=== PATIENT | female | born 1945 | race Caucasian/White ===

== ENCOUNTER → 2019-07-18 08:58 | Outpatient (CLI) | payer MEDICARE ==
[2013-10-05 03:44] VITALS: BMI 25.8
[~2019-07-18 08:58] MED LIST: CORDARONE200 MG PO; LIPITOR20 MG PO; TOPROL XL50 MG PO; XARELTO20 MG PO
== END | disposition home or self-care (01) ==
LOC: D.US 08:58
PROVIDERS: ATTEND Internal Medicine Interventional Cardiology
DX: R09.89 Other specified symptoms and signs involving the circulatory and respiratory systems (principal)

== ENCOUNTER → 2019-07-25 07:54 | Outpatient (CLI) | payer MEDICARE, MEDICAID ==
[2013-10-05 03:44] VITALS: BMI 25.8
--- NOTE | ~2019-07-25 | ST ---
PATIENT:JOHN COSME MEDICAL RECORD: [id number] SEX: F LOCATION:[facility] ORDER #: ADMISSION DATE: 07/25/19 AGE OF PATIENT: 74 REFERRING PHYSICIAN: INTERPRETING PHYSICIAN: VERITO HADDAD MD DATE OF SERVICE: 07/25/2019 INDICATION: Angina and coronary artery disease, hypertension and hyperlipidemia. He was exercised on standard Lexiscan protocol with 33 mCi of sestamibi injected at peak stress, 11 mCi used previously for rest images. FINDINGS: Gated SPECT reveals preserved ejection fraction at 63% with good wall motion and thickening and brightening throughout all segments. SPECT imaging Cardiolite was used as myocardial fusion agent. There is homogeneous uptake throughout all segments at rest and stress with no evidence of inducible ischemia or previous infarction. OVERALL IMPRESSION: 1. This is a normal nuclear stress test with no evidence of inducible ischemia or previous infarction. 2. Gated SPECT reveals a preserved ejection fraction at 63%. In this patient with ongoing symptomatology, the current scan does not suggest the presence of hemodynamically significant coronary artery disease. Evaluate noncardiac etiology of chest pain. TRANSINT:[id number] Voice Confirmation ID: [id number] DOCUMENT ID: [id number] VERITO HADDAD MD CC: ABIOLA HILL MD [id number] DICTATION DATE: 07/26/19 1428 DOCK GRADER: 07/27/19 0149 DEP CLI 07/25/19 [id number] [place] [address]
== END | disposition home or self-care (01) ==
LOC: D.HCCARDIO 07:54
PROVIDERS: ATTEND Internal Medicine Interventional Cardiology
DX: I25.10 Atherosclerotic heart disease of native coronary artery without angina pectoris (principal)

== ENCOUNTER 2019-12-08 21:43 | Inpatient (IN) | payer MEDICARE, MEDICAID ==
[~2019-12-08] VITALS: Ht 165.1 cm; Wt 80.2 kg
[2019-12-08] MEDS ORDERED: COZAAR50 MG PO (21:53)
[2019-12-08] MEDS ORDERED: NORVASC5 MG PO (21:53)
[2019-12-08] MEDS ORDERED: HYDROCHLOROTH12.5 M1 PO (21:54)
--- NOTE | 2019-12-08 21:57 | NUR ---
PT O2 SAT IS 85 % ON RA AFTER WALKING TO BATHROOM
[2019-12-08 21:58] LABS: BASOPHILS 0.3 % (0-2); EOSINOPHILS 1.9 % (0-7); HEMATOCRIT 34.7 % (36.0-48.0); HEMOGLOBIN 11.2 g/dL (12-16); IMMATURE GRANULOCYTES 0.3 % (0-5); MCH 30.8 pg (26.0-34.0); MCHC 32.3 g/dL (31.0-37.0); MCV 95.3 fL (80.0-100.0); MEAN PLATELET VOLUME 11.3 fL (7.4-10.4); MONOCYTES 10.2 % (2-11); NEUTROPHILS 79.3 % (40-80); RBC 3.64 10x6/uL (4.00-5.40); RDW 14.7 % (11.5-14.5); WBC 6.5 10x3/uL (4.8-10.8)
[2019-12-08 22:02] LABS: BACTERIA FEW /hpf (NEGATIVE); BILIRUBIN NEGATIVE (NEGATIVE); EPITHELIAL CELLS 0-5 /hpf (0-5); GLUCOSE NEGATIVE (NEGATIVE); KETONE NEGATIVE (NEGATIVE); NITRITE NEGATIVE (NEGATIVE); PLATELET COUNT 210 10x3/uL (130-400); RED CELLS - URINE OCC /hpf (0-5); UROBILINOGEN NORMAL (NORMAL); WHITE CELLS - URINE 0-5 /hpf (NEGATIVE)
[2019-12-08 22:04] LABS: APTT 33.5 SECONDS (22.8-39.4); INR 1.13 (0.85-1.17); PROTIME 14.4 SECONDS (11.6-15.0)
[2019-12-08 22:05] LABS: CALC OSMOLALITY 282 mosm/kg (275-300); CALCIUM 9.5 mg/dL (8.5-10.1); CARBON DIOXIDE 31.1 mmol/L (21.0-32.0); CHLORIDE - SERUM 102 mmol/L (98-107); CREATININE - SERUM 1.4 mg/dL (0.6-1.3); GLUCOSE 165 mg/dL (74-106); POTASSIUM - SERUM 4.5 mmol/L (3.5-5.1); SODIUM 134 mmol/L (136-145); UREA NITROGEN 42 mg/dL (7-18); eGFR NON AFRICAN AMERICAN 39 mL/min (90-120)
[2019-12-08 22:24] LABS: ALBUMIN 3.4 g/dL (3.4-5.0); ALKALINE PHOSPHATASE 98 U/L (30-120); ALT (SGPT) 58 U/L (10-68); BILIRUBIN - TOTAL 0.75 mg/dL (0.2-1.3); CKMB 3.8 U/L (0.0-3.6); CREATINE KINASE 167 UL (21-215); PRO BNP 991 pg/mL (0-125); PROTEIN - SERUM 7.8 g/dL (6.4-8.2)
[2019-12-08 22:25] LABS: TROPONIN-I < 0.017 ng/mL (0.000-0.060)
--- NOTE | 2019-12-08 22:56 | NUR ---
RT AT BEDSIDE TO ADMINISTER BREATHING TREATMENT.
[2019-12-08 23:01] LABS: C-REACTIVE PROTEIN 5.5 mg/dL (0.0-0.9)
--- NOTE | 2019-12-09 01:39 | NUR ---
PT FROM ER VIA STRETCHER, PT ON 3LO2/NC, RESP EVEN AND UNLABORED. NO DISTRESS NOTED, AMBULATED TO BED, CL IN REACH, SR UP X 2.
[2019-12-09 01:47] VITALS: BP 144/55
[2019-12-09 05:01] VITALS: BP 137/56
--- NOTE | 2019-12-09 09:09 | NUR ---
PT AWAKE AND ORIENTED WHEN I ENTERED THE ROOM. NO COMPLAINTS OR CONCERNS THIS AM. SHE IS ANXIOUS FOR HER RESULTS TO COME BACK (COVID). PROVIDED ORAL CARE EQUIPTMENT. CL IN REACH, SRX2, UP ADLIB IN ROOM.
--- NOTE | 2019-12-09 10:59 | NUR ---
PTS FAMILY BROUGHT BELONGINGS, TAKEN INTO ROOM.
--- NOTE | 2019-12-09 16:55 | NUR ---
I have reviewed this patient and I concur with the Shift Assessment completed by the Licensed Practical Nurse today this shift.
--- NOTE | 2019-12-09 20:01 | NUR ---
REPORT RECEIVED AND ROUNDING COMPLETE. PATIENT SITTING IN RICK IN ROOM WEARING NASAL CANNULA WITH O2 AT 3L, PATIENT STATES THIS IS A HOME DOSE. LEFT WRIST PIV THAT IS PATIENT AND RUNNING FLUIDS AT THIS TIME. CALL LIGHT WITHIN REACH NO DISTRESS NOTED AT THIS TIME.
[2019-12-09 20:47] VITALS: BP 144/45
[2019-12-10 04:30] VITALS: BP 143/68
[2019-12-10 06:06] LABS: BASOPHILS 0 % (0-2); EOSINOPHILS 0 % (0-7); HEMATOCRIT 33.9 % (36.0-48.0); HEMOGLOBIN 10.7 g/dL (12-16); IMMATURE GRANULOCYTES 0.4 % (0-5); LYMPHOCYTES 2.9 % (15-50); MCH 30.3 pg (26.0-34.0); MCHC 31.6 g/dL (31.0-37.0); MEAN PLATELET VOLUME 11.9 fL (7.4-10.4); MONOCYTES 5.1 % (2-11); NEUTROPHILS 91.6 % (40-80); PLATELET COUNT 185 10x3/uL (130-400); RBC 3.53 10x6/uL (4.00-5.40); RDW 15.1 % (11.5-14.5)
[2019-12-10 06:20] LABS: WBC 8.2 10x3/uL (4.8-10.8)
[2019-12-10 06:33] LABS: ANION GAP 12.4 mmol/L (8-16); CARBON DIOXIDE 24.2 mmol/L (21.0-32.0); CREATININE - SERUM 1.4 mg/dL (0.6-1.3); MAGNESIUM - SERUM 2.4 mg/dL (1.8-2.4); POTASSIUM - SERUM 4.6 mmol/L (3.5-5.1)
[2019-12-10 09:17] VITALS: BP 97/68
--- NOTE | 2019-12-10 10:43 | NUR ---
NOTIFIED ELLE CAVAZOS APN OF ELEVATED D. DIMER. ORDERS FOR VQ SCAN.
--- NOTE | 2019-12-10 11:42 | NUR ---
PAGED DR. MCKEE, WAITING PROJECT ASST BACK.
[2019-12-10 12:08] VITALS: BP 101/70
--- NOTE | 2019-12-10 12:25 | NUR ---
BILAT LEG VENOUS DOPPLER BY DR. MCKEE. NOTIFIED MIREYA SHELL APRN THAT PT STATES THAT SHE CANNOT LAY FLAT FOR VQ SCAN. PER MIREYA OK TO CANCEL SINCE DR. MCKEE HAS ORDERED DOPPLER OF LEGS.
--- NOTE | 2019-12-10 18:14 | NUR ---
PROVIDED PT WITH THE SUPPLIES NEEDED FOR SPONGE BATH. PT DENIES ANY OTHER NEEDS AT THIS TIME. CALL LIGHT IN REACH, NAD NOTED, WILL CONTINUE TO MONITOR.
[2019-12-10 20:30] VITALS: BP 114/78
[2019-12-11 04:36] VITALS: BP 130/49
[2019-12-11 05:20] LABS: BASOPHILS 0 % (0-2); EOSINOPHILS 0 % (0-7); HEMATOCRIT 31.1 % (36.0-48.0); HEMOGLOBIN 9.6 g/dL (12-16); IMMATURE GRANULOCYTES 0.9 % (0-5); LYMPHOCYTES 2.6 % (15-50); MCH 29.7 pg (26.0-34.0); MCHC 30.9 g/dL (31.0-37.0); MCV 96.3 fL (80.0-100.0); MEAN PLATELET VOLUME 11.2 fL (7.4-10.4); MONOCYTES 6.4 % (2-11); NEUTROPHILS 90.1 % (40-80); PLATELET COUNT 199 10x3/uL (130-400); RBC 3.23 10x6/uL (4.00-5.40); RDW 15.2 % (11.5-14.5); WBC 9.1 10x3/uL (4.8-10.8)
[2019-12-11 05:28] LABS: ANION GAP 10.3 mmol/L (8-16); CALCIUM 8.8 mg/dL (8.5-10.1); CARBON DIOXIDE 28.2 mmol/L (21.0-32.0); CREATININE - SERUM 1.3 mg/dL (0.6-1.3)
[2019-12-11 05:33] LABS: POTASSIUM - SERUM 5.5 mmol/L (3.5-5.1)
[2019-12-11 08:16] VITALS: BP 123/48
--- NOTE | 2019-12-11 08:55 | NUR ---
AM MEDS GIVEN AT THIS TIME. PT UP TO CHAIR, A/O X4, RESP EVEN AND NONLABORED ON 2L. LT FA IV INFUSING NS AT 75CC/HR. PT DENIES ANY NEEDS AT THIS TIME. CALL LIGHT IN REACH, NAD NOTED, WILL CONTINUE TO MONITOR.
[2019-12-11 12:48] VITALS: BP 148/53
[2019-12-11 17:01] VITALS: BP 159/52
--- NOTE | 2019-12-11 20:00 | NUR ---
INITIAL ROUNDS AND ASSESSMENT COMPLETED. PT RESTING IN BED. ALERT/ORIENTED. O2 @ 2L/NC. NS @ 75ML/HR INFUSING TO LFA. CALL LIGHT IN REACH. CPOC.
[2019-12-11 20:21] VITALS: BP 133/55
--- NOTE | 2019-12-11 23:38 | NUR ---
ALL BED TIME MEDS GIVEN. PT ALSO GIVEN BEDTME SNACK. CPOC.
[2019-12-12 00:33] VITALS: BP 100/57
[2019-12-12 05:48] VITALS: BP 150/60
[2019-12-12 07:12] LABS: BASOPHILS 0.1 % (0-2); EOSINOPHILS 0 % (0-7); HEMATOCRIT 35.6 % (36.0-48.0); HEMOGLOBIN 11.4 g/dL (12-16); IMMATURE GRANULOCYTES 1.8 % (0-5); LYMPHOCYTES 1.4 % (15-50); MCH 30.7 pg (26.0-34.0); MEAN PLATELET VOLUME 11.4 fL (7.4-10.4); MONOCYTES 4.2 % (2-11); NEUTROPHILS 92.5 % (40-80); RBC 3.71 10x6/uL (4.00-5.40); RDW 15.6 % (11.5-14.5)
[2019-12-12 07:33] LABS: PLATELET COUNT 301 10x3/uL (130-400)
[2019-12-12 07:41] LABS: ANION GAP 14.4 mmol/L (8-16); CALCIUM 9.2 mg/dL (8.5-10.1); CARBON DIOXIDE 25.6 mmol/L (21.0-32.0); CREATININE - SERUM 1.3 mg/dL (0.6-1.3)
[2019-12-12 08:00] VITALS: BP 142/55
--- NOTE | 2019-12-12 08:41 | CN ---
PATIENT NAME:JOHN COSME MEDICAL RECORD: [id number] : 47 LOCATION:D. D.2113 ADMIT DATE: 12/09/19 ACCOUNT: [id number] CONSULTING PHYSICIAN: LULU CLAYTON MD REFERRING PHYSICIAN: MIRTA BERGMAN MD DATE OF CONSULTATION: 12/11/2019 HISTORY OF PRESENT ILLNESS: A 74-year-old lady, previously followed by Dr. Larsen, has history of coronary artery disease, status post coronary artery bypass grafting in 2002. She was seen with chest tightness and heaviness back in August of this year, had negative nuclear stress test at that time, pressure is more waxed and waned, related more to dyspnea by her report, it is not reminiscent of her previous angina. Carotid Dopplers had less than 30% stenosis at that time. We are asked to see her concerning her cardiovascular status. PAST MEDICAL HISTORY: Includes: 1. History of hypertension. 2. Hyperlipidemia. 3. Coronary artery disease, status post bypass grafting. 4. Atrial fibrillation. ALLERGIES: None known. HOME MEDICATIONS: Typically include atorvastatin 20 mg p.o. every day, amlodipine 5 mg p.o. every day, losartan 50 mg p.o. b.i.d., amiodarone 200 every day, HCTZ 12.5 every day. SOCIAL HISTORY: Nonsmoker, nondrinker. She takes care of all her ADLs. No set exercise program. REVIEW OF SYSTEMS: The patient reports easy bruising but reports no swollen glands. The patient reports no fever, no night sweats, no significant weight gain, no significant weight loss. No significant exercise tolerance. The patient reports no dry eyes, no irritation, no vision change. Patient reports no difficulty hearing and no ear pain. Patient reports no frequent nose bleeds or nose and sinus problems. Patient reports on arm pain on exertion. No shortness of breath while lying down. No history of heart murmur. Patient reports no cough, no wheezing or coughing up blood. Patient reports no abdominal pain, no vomiting. Normal appetite. No diarrhea and not vomiting blood. No nausea and no constipation. Patient reports no incontinence. No difficulty urinating. No hematuria. No increased frequency. Patient reports no muscle aches. No weakness, no arthralgias, no back pain. No swelling of the extremities. Patient reports no abnormal mole, no jaundice, no rashes. Reports no loss of consciousness. No weakness and no numbness. No seizures, dizziness, or headaches. The patient reports no depression, no sleep disturbance, feeling safe in a relationship and no alcohol abuse. Patient reports on fatigue. Reports no runny nose or sinus pressure. No itching, no hives, and no frequent sneezing. PHYSICAL EXAMINATION: GENERAL: Pleasant female, in no acute distress, appears stated age. VITAL SIGNS: Blood pressure 123/48, pulse 98 and regular. HEENT: Normocephalic, atraumatic. NECK: No JVD or bruit. HEART: Regular. CONSULT REPORT [id number] COSME,NELROSE LUNGS: Good air excursion. ABDOMEN: Soft, nontender. EXTREMITIES: Pulses 2+ with no edema. IMPRESSION: Symptomology appears stable and related to her respiratory status. Historically, has a recent nuclear stress testing. I will check echocardiographic study to assess LV function as well as any valvular dysfunction as well as PA pressures. If anginal type symptoms worsen, could consider a diagnostic angiography. Further recommendations based on clinical course. TRANSINT:[id number] Voice Confirmation ID: [id number] DOCUMENT ID: [id number] LULU CLAYTON MD at 0841 CC: [id number] DICTATION DATE: 12/11/19 1114 DOCTOR'S ASSISTANT: 12/11/19 1506 ADM IN [id number] [place] [address]
[2019-12-12 11:00] VITALS: BP 132/53
[2019-12-12 15:00] VITALS: BP 144/48
[2019-12-12 20:50] VITALS: BP 123/69
[2019-12-13 00:39] VITALS: BP 128/51
--- NOTE | 2019-12-13 00:51 | NUR ---
PT RESTING IN BED A/O X4. RR EVEN AND UNLABORED ON 2L O2. PT DENIES ANY PAIN OR FURTHER NEEDS. WILL CONTINUE TO MONITOR.
--- NOTE | 2019-12-13 03:16 | NUR ---
I have reviewed this patient and I concur with the Shift Assessment completed by the Licensed Practical Nurse today this shift.
[2019-12-13 05:13] VITALS: BP 146/56
--- NOTE | 2019-12-13 07:20 | NUR ---
WALKING ROUNDS COMPLETE, PT SITTING UP IN CHAIR FOR BREAKFAST, PT DENIES PAIN OR NEEDS, CALL LIGHT IN REACH, WILL MONITOR
--- NOTE | 2019-12-13 08:50 | NUR ---
GAVE PT MORNING MEDS WITHOUT DIFFICULTY, PT DENIES PAIN OR NEEDS, SITTING UP IN CHAIR, CALL LIGHT IN REACH, NO DISTRESS NOTED
[2019-12-13 08:59] VITALS: BP 146/61
[2019-12-13 13:21] VITALS: BP 150/60
[2019-12-13 20:00] VITALS: BP 146/48
[2019-12-14] VITALS: BP 146/62
[2019-12-14 04:00] VITALS: BP 145/54
[2019-12-14 06:50] LABS: BASOPHILS 0.1 % (0-2); EOSINOPHILS 0 % (0-7); HEMATOCRIT 31.2 % (36.0-48.0); HEMOGLOBIN 9.9 g/dL (12-16); IMMATURE GRANULOCYTES 2.3 % (0-5); LYMPHOCYTES 3.5 % (15-50); MCH 30.2 pg (26.0-34.0); MCHC 31.7 g/dL (31.0-37.0); MCV 95.1 fL (80.0-100.0); MEAN PLATELET VOLUME 10.8 fL (7.4-10.4); MONOCYTES 4.6 % (2-11); NEUTROPHILS 89.5 % (40-80); RBC 3.28 10x6/uL (4.00-5.40); RDW 15.3 % (11.5-14.5); WBC 9.5 10x3/uL (4.8-10.8)
[2019-12-14 06:54] LABS: PLATELET COUNT 204 10x3/uL (130-400)
[2019-12-14 07:07] LABS: ANION GAP 10.6 mmol/L (8-16); CALCIUM 8.7 mg/dL (8.5-10.1); CREATININE - SERUM 1.3 mg/dL (0.6-1.3); POTASSIUM - SERUM 4.6 mmol/L (3.5-5.1)
[2019-12-14 08:00] VITALS: BP 139/57
--- NOTE | 2019-12-14 10:58 | NUR ---
PT AWAKE AND ORIENTED WHEN I ENTERED. LAB REPORTED HIGH BLOOD SUGAR, RECHECKED FOR VERIFICATION. SPOKE WITH SHAISTA ABLE ORDER LOW DOSE INSULIN SLIDING SCALE, WILL TREAT ACCORDINGLY. PT EXPRESSES MULTIPLE EPISODES OF FRUSTRATION D/T CURRENT DECLINING HEALTH STATUS.
[2019-12-14 11:00] VITALS: BP 148/58
--- NOTE | 2019-12-14 12:33 | NUR ---
I have reviewed this patient and I concur with the Shift Assessment completed by the Licensed Practical Nurse today this shift.
[2019-12-14 12:48] VITALS: Ht 165.1 cm; Wt 80.2 kg
--- NOTE | 2019-12-14 14:00 | NUR ---
PT AWAKE AND ORIENTED, LYING IN BED. TOLERATED FIRST DOSE OF INSULIN WELL. NO COMPLAINTS OR CONCERNS AT THIS TIME. CL IN REACH, SRX2.
[2019-12-14 15:00] VITALS: BP 140/81
--- NOTE | 2019-12-14 15:26 | EC ---
PATIENT:JOHN COSME DATE OF SERVICE: 12/09/19 SEX: F MEDICAL RECORD: [id number] DATE OF : [birth year] LOCATION:D.M2 D.211 AGE OF PATIENT: 74 ADMISSION DATE: 12/09/19 REFERRING PHYSICIAN: INTERPRETING PHYSICIAN: LULU CLAYTON MD ECHOCARDIOGRAM REPORT ECHO CHARGES 4 ECHO COMPLETE Date: 12/11/19 CLINICAL DIAGNOSIS: SOB, ANGINA ECHOCARDIOGRAPHIC MEASUREMENTS (adult normal given) AC root (d.<3.7cm) 3.4 cm LV Septum d (<1.2 cm> 1.3 cm Valve Excursion 1.5 cm LV Septum (systole) 1.5 cm Left Atria (s.<4.0cm> 3.9 cm LVPW d(<1.2cm) 1.2 cm RV (d.<2.3cm) 3.5 cm LVPW (sytole) 1.3 cm LV diastole(<5.6CM) 5.1 cm MV E-F(>70mm/sec) cm LV systole 4.0 cm LVOT Diameter 2.0 cm MV exc.(>10mm) cm Est.ejection fraction (50-75%) % DOPPLER: LVIT cm/sec A 59 cm/sec E 165 cm/sec LA cm/sec RVSP 47.5 mmHg LVOT 105 cm/sec AOP1/2T m/s Asc. Ao 194 cm/sec RVOT 68 cm/sec RA cm/sec PA 102 cm/sec AV Gradient Peak 15.1 mmHg AV Mean 9.4 mmHg AV Area 1.8 cm MV Gradient Peak 16.2 mmHg MV Mean 7.3 mmHg MV Area cm COMMENTS: Dry Clipper Tender: Jas SANTOS Experimental Rocket Sled Mechanic: 3 Dr. Ruffin TAPE# PACS Pericardial Effusion N DATE OF SERVICE: Adequate 2D, color flow imaging, spectral Doppler and M-mode. Mild LVH. LV internal dimension is normal. Wall motion is normal. EF is greater than or equal to 55%. Aortic valve is tricuspid. No evidence of stenosis by Doppler interrogation. Left atrium is normal 3.9 cm. Mitral valve shows no prolapse. Trace MR. Right-sided chambers grossly normal. Trace TR. TRANSINT:[id number] Voice Confirmation ID: [id number] DOCUMENT ID: [id number] ECHOCARDIOGRAM REPORT [id number] JOHN COSME LULU CLAYTON MD at 1526 CC: [id number] DICTATION DATE: 12/12/19 1602 PRECISION LENS TECHNICIAN: 12/12/19 2324 ADM IN [place] [id number] [place] [id number]
[2019-12-14 16:09] LABS: IMMUNOGLOBULIN E QNS IU/mL (())
--- NOTE | 2019-12-14 17:28 | NUR ---
PT AWAKE AND OREITNED, C/O CONSTIPATION. WILL SPEAK WITH SHAISTA ABEL. CL N REACH, SRX2.
--- NOTE | 2019-12-14 19:36 | NUR ---
RECEIVED BEDSIDE REPORT. PATIENT IS ALERT AND ORIENTED, RESTING COMFORTABLY IN BED. RESPIRATIONS ARE EVEN AND UNLABORED. NO S/S OF DISTRESS. NO C/O PAIN. CALL LIGHT WITHIN REACH. WILL CPOC.
[2019-12-14 20:00] VITALS: BP 138/51
[2019-12-15 04:00] VITALS: BP 114/93
[2019-12-15 08:00] VITALS: BP 141/66
--- NOTE | 2019-12-15 10:45 | NUR ---
PT AWAKE AND ORIENTED SITTING UP IN CHAIR FOR BREAKFAST. NO COMPLAINTS OR CONCERNS STATED THIS AM. CL IN REACH,S RX2. TOOK MEDICATIONS WITHOUT COMPLICATIONS.
[2019-12-15 11:00] VITALS: BP 141/61
--- NOTE | 2019-12-15 11:40 | MORECARE ---
CASE MANAGEMENT DISCHARGE SUMMARY PATIENT: JOHN COSME UNIT: [id number] ADM DATE: 12/09/19 AGE: 74 : 46 SEX: F [facility] [address] AUTHOR: DUNG MOMIN PHYSICIAN: REFERRING PHYSICIAN: MIRTA BERGMAN MD DATE OF SERVICE: 12/15/19 Discharge Plan Patient Name: JOHN COSME Facility: [facility]:[place] : 1945 Planned Disposition: Home Health Service Anticipated Discharge Date: Discharge Date: Expected LOS: 0 Initial Reviewer: [email or web address] Initial Review Date: 12/09/2019 Generated: 12/15/19 12:39 pm Patient Name: JOHN COSME Page [id number] at 1140 All edits/amendments must be made on the electronic document DICTATION DATE: 12/15/19 1139 BOTTLE CARRIER: SIMON 12/15/19 1139 RPT#: [id number] DC DATE: STATUS: ADM IN [facility] [address] [place] [address] END OF REPORT
--- NOTE | 2019-12-15 11:47 | MORECARE ---
CASE MANAGEMENT DISCHARGE SUMMARY PATIENT: JOHN ULLOA UNIT: [id number] ADM DATE: 12/09/19 AGE: 74 : 46 SEX: F ROOM/BED: D.[facility] AUTHOR: MERRILL,DOC PHYSICIAN: REFERRING PHYSICIAN: MIRTA BERGMAN MD DATE OF SERVICE: 12/15/19 Discharge Plan Patient Name: JOHN ULLOA Facility: [facility]:[place] : 1945 Planned Disposition: Home Health Service Anticipated Discharge Date: Discharge Date: Expected LOS: 0 Initial Reviewer: [email or web address] Initial Review Date: 12/09/2019 Generated: 12/15/19 12:46 pm Comments DCP- Discharge Planning Updated by [email or web address]: Rebecca Saab on 12/15/19 10:[address] CM met with patient to discuss initial discharge planning. Patient is in agreement to proceed with the assessment. Patient reports that she lives at home independently with her daughter, Tamera Ulloa ([phone]). Patient is alert/oriented. Stairs/steps: PCP: Siria Fuentes APRN w/Dr. Buchanan. [facility]acy: [facility]. Patient states she has been able to obtain all of her prescribed medications. HHS: Request, CM will set up. DME: Home O2, shower chair, [employer]. Patient gives permission to speak with family members/care givers. Patient is Independent with all ADL's, medication management MANAGER PHARMACEUTICAL. CM discussed the availability of HH, Rehab, SNF, OP Therapy, DME services. Patient's daughterTamera, request HHS, hospital bed, portable O2, Nebulizer, HHS and feels safe returning to previous environment. Patient denies hospitalization within the past 30 days. Patient denies the use of community resources MANAGER PHARMACEUTICAL. Transportation at time of discharge: Tamera Ulloa. CM will assist PRN with DC needs/plans. DCPIA - Discharge Planning Initial Assessment Updated by [email or web address]: Rebecca Saab on 12/15/19 11:39 am * Is the patient Alert and Oriented? Yes * PCP Siria Fuentes APRN w/Dr. Buchanan * Pharmacy [facility] * Preadmission Environment Home with Family * ADLs Partial Dependent * Partial ADLs (Assistance needed) Bathing Dressing Medication Management * Equipment Oxygen Shower Chair * Other Equipment Order for Portable O2, Hospital bed, nebulizer, walker from [facility] * List name and contact numbers for known caregivers / representatives who currently or will assist patient after discharge: Tamera Ulloa (dtr) [phone] * Verbal permission to speak to the caregivers and representatives has been obtained from the patient. Yes * Community resources currently utilized Home Health Private Duty Care * Please name any agencies selected above. [employer]" caregiver * Additional services required to return to the preadmission environment? Yes * Can the patient safely return to the preadmission environment? Yes * Has this patient been hospitalized within the prior 30 days at any hospital? No Last DP export: 12/15/19 10:39 a Patient Name: JOHN ULLOA Page [phone] at 1147 All edits/amendments must be made on the electronic document DICTATION DATE: 12/15/19 1146 BROADBAND ENGINEER: SIMON 12/15/19 1146 RPT#: [id number] DC DATE: STATUS: ADM IN [facility] [address] [place] [address] END OF REPORT
--- NOTE | 2019-12-15 12:15 | MORECARE ---
CASE MANAGEMENT DISCHARGE SUMMARY PATIENT: KEITH ULLOA UNIT: [id number] ADM DATE: 12/09/19 AGE: 74 : 46 SEX: F ROOM/BED: D.[facility] AUTHOR: MERRILL,DOC PHYSICIAN: REFERRING PHYSICIAN: MIRTA BERGMAN MD DATE OF SERVICE: 12/15/19 Discharge Plan Patient Name: KEITH ULLOA Facility: [facility]:[place] : 1945 Planned Disposition: Home Health Service Anticipated Discharge Date: Discharge Date: Expected LOS: 0 Initial Reviewer: [email or web address] Initial Review Date: 12/09/2019 Generated: 12/15/19 1:14 pm Comments DCP- Discharge Planning Updated by [email or web address]: Rebecca Saab on 12/15/19 11:[address] CM met with patient to discuss initial discharge planning. Patient is in agreement to proceed with the assessment. Patient reports that she lives at home partially independent with her daughter, Tamera Ulloa ([phone]). Patient is alert/oriented. Stairs/steps: PCP: kayce Knight APRN/Dr. Buchanan. Pharmacy: [facility]. Patient states she has been able to obtain all of her prescribed medications. HHS: Request, CM will set up. DME: Home O2, shower chair, glucometer, [employer]. Patient gives permission to speak with family members/care givers. Patient is Independent with all ADL's, medication management NEW CAR SALES MANAGER. CM discussed the availability of HH, Rehab, SNF, OP Therapy, DME services. Patient's daughterTamera, request HHS, hospital bed, portable O2, Nebulizer, HHS and feels safe returning to previous environment. Patient denies hospitalization within the past 30 days. Patient denies the use of community resources NEW CAR SALES MANAGER. Transportation at time of discharge: Tamera Ulloa. CM will assist PRN with DC needs/plans. DCPIA - Discharge Planning Initial Assessment Updated by [id number]: Rebecca Saab on 12/15/19 12:11 pm * Is the patient Alert and Oriented? Yes * PCP iSria Fuentes APRN w/Dr. Buchanan * Pharmacy [facility] * Preadmission Environment Home with Family * ADLs Partial Dependent * Partial ADLs (Assistance needed) Bathing Dressing Medication Management * Equipment Glucometer Shower Chair * Other Equipment [facility] for Portable O2, [facility] bed[facility] Has: ome O2, Shower bench * List name and contact numbers for known caregivers / representatives who currently or will assist patient after discharge: Tamera Ulloa (dtr) [phone] * Verbal permission to speak to the caregivers and representatives has been obtained from the patient. Yes * Community resources currently utilized Home Health Private Duty Care * Please name any agencies selected above. [employer]" caregiver * Additional services required to return to the preadmission environment? Yes * Can the patient safely return to the preadmission environment? Yes * Has this patient been hospitalized within the prior 30 days at any hospital? No Coverage Notice Reviewer: [email or web address] Florencia Saab Notice Issued Date-Time: 12/15/2019 12:13 Notice Type: Patient Choice Letter Notice Delivered To: Patient Relationship to Patient: Self Supervisor Water Softener Service Name: Keith Ulloa Delivery Method: - Whitney Days: Prior Verbal Notification: Recipient Understood Notice: Recipient Signature: Med Rec Note Co-signed by Attending: Coverage Notice Comment: Last DP export: 12/15/19 10:47 a Patient Name: KEITH ULLOA Page [phone] at 1215 All edits/amendments must be made on the electronic document DICTATION DATE: 12/15/19 1215 RUBBER BALL FINISHER: SIMON 12/15/19 1215 RPT#: [id number] DC DATE: STATUS: ADM IN [facility] [address] [place] [address] END OF REPORT
--- NOTE | 2019-12-15 12:39 | MORECARE ---
CASE MANAGEMENT DISCHARGE SUMMARY PATIENT: KEITH ULLOA UNIT: [id number] ADM DATE: 12/09/19 AGE: 74 : 46 SEX: F ROOM/BED: D.[facility] AUTHOR: MERRILL,DOC PHYSICIAN: REFERRING PHYSICIAN: MIRTA BERGMAN MD DATE OF SERVICE: 12/15/19 Discharge Plan Patient Name: KEITH ULLOA Facility: [facility]:[place] : 1945 Planned Disposition: Home Health Service Anticipated Discharge Date: Discharge Date: Expected LOS: 0 Initial Reviewer: [email or web address] Initial Review Date: 12/09/2019 Generated: 12/15/19 1:39 pm DCP- Discharge Planning Updated by [email or web address]: Rebecca Saab on 12/15/19 11:[address] CM met with patient to discuss initial discharge planning. Patient is in agreement to proceed with the assessment. Patient reports that she lives at home partially independent with her daughter, Tamera Ulloa ([phone]). Patient is alert/oriented. Stairs/steps: PCP: kayce Knight APRN/Dr. Buchanan. Pharmacy: [facility]. Patient states she has been able to obtain all of her prescribed medications. HHS: Request, CM will set up. DME: Home O2, shower chair, glucometer, [employer]. Patient gives permission to speak with family members/care givers. Patient is Independent with all ADL's, medication management TECHNOLOGY APPLICATIONS ENGINEER. CM discussed the availability of HH, Rehab, SNF, OP Therapy, DME services. Patient's daughterTamera, request HHS, hospital bed, portable O2, Nebulizer, HHS and feels safe returning to previous environment. Patient denies hospitalization within the past 30 days. Patient denies the use of community resources TECHNOLOGY APPLICATIONS ENGINEER. Transportation at time of discharge: Tamera Ulloa. CM will assist PRN with DC needs/plans. DCPIA - Discharge Planning Initial Assessment Updated by [id number]: Rebecca Saab on 12/15/19 12:11 pm * Is the patient Alert and Oriented? Yes * PCP Siria Fuentes APRN w/Dr. Buchanan * Pharmacy [facility] * Preadmission Environment Home with Family * ADLs Partial Dependent * Partial ADLs (Assistance needed) Bathing Dressing Medication Management * Equipment Glucometer Shower Chair * Other Equipment Order for Portable O2, Hospital bed, nebulizer, walker from [employer] Has: ome O2, Shower bench * List name and contact numbers for known caregivers / representatives who currently or will assist patient after discharge: Tamera Ulloa (dtr) [phone] * Verbal permission to speak to the caregivers and representatives has been obtained from the patient. Yes * Community resources currently utilized Home Health Private Duty Care * Please name any agencies selected above. [employer]" caregiver * Additional services required to return to the preadmission environment? Yes * Can the patient safely return to the preadmission environment? Yes * Has this patient been hospitalized within the prior 30 days at any hospital? No External Providers External Provider: [facility] Next Contact Date: Service Request Date: Service Type: Resolution: Reviewer: Comments: External Provider: [facility] Next Contact Date: Service Request Date: Service Type: Resolution: Reviewer: Comments: Coverage Notice Reviewer: [email or web address] Saab Notice Issued Date-Time: 12/15/2019 12:13 Notice Type: Patient Choice Letter Notice Delivered To: Patient Relationship to Patient: Self Employee Communications Manager Name: Keith Ulloa Delivery Method: HAND - Hand Delivered Whitney Days: Prior Verbal Notification: Recipient Understood Notice: Yes Recipient Signature: Yes Med Rec Note Co-signed by Attending: Coverage Notice Comment: Patient choice for [facility] Reviewer: [email or web address] Saab Notice Issued Date-Time: 12/15/2019 12:13 Notice Type: IM Discharge Notice Notice Delivered To: Patient Relationship to Patient: Self Employee Communications Manager Name: Keith Ulloa Delivery Method: HAND - Hand Delivered Whitney Days: Prior Verbal Notification: Recipient Understood Notice: Yes Recipient Signature: Yes Med Rec Note Co-signed by Attending: Coverage Notice Comment: DC IMM signed/given to patient. Last DP export: 12/15/19 11:15 a Patient Name: KEITH ULLOA Page [phone] at 1239 All edits/amendments must be made on the electronic document DICTATION DATE: 12/15/19 1239 INSURANCE DEFENSE PARALEGAL: SIMON 12/15/19 1239 RPT#: [id number] DC DATE: STATUS: ADM IN [facility] [address] [place] [address] END OF REPORT
--- NOTE | 2019-12-15 13:37 | MORECARE ---
CASE MANAGEMENT DISCHARGE SUMMARY PATIENT: KEITH ULLOA UNIT: [id number] ADM DATE: 12/09/19 AGE: 74 : 47 SEX: F ROOM/BED: D.[facility] AUTHOR: MERRILL,DOC PHYSICIAN: REFERRING PHYSICIAN: MIRTA BERGMAN MD DATE OF SERVICE: 12/15/19 Discharge Plan Patient Name: KEITH ULLOA Facility: [facility]:[place] : 1945 Planned Disposition: Home Health Service Anticipated Discharge Date: Discharge Date: Expected LOS: 0 Initial Reviewer: [id number] Initial Review Date: 12/09/2019 Generated: 12/15/19 2:36 pm Comments DCP- Discharge Planning Updated by [email or web address]: Rebecca Saab on 12/15/19 12:[address] DC Plan: CM contacted Mary with [facility] with orders for a hospital bed, RW, Nebulizer, portable O2. Contacted [facility], spoke with Petra, faxed information for O/A, PT services. Patient will require a RA sat prior to DC, in order to qualify for a portable O2 tank. CM met with patient to discuss initial discharge planning. Patient is in agreement to proceed with the assessment. Patient reports that she lives at home partially independent with her daughter, Tamera Ulloa ([phone]). Patient is alert/oriented. Stairs/steps: PCP: kayce Knight APRN/Dr. Buchanan. [facility]. Patient states she has been able to obtain all of her prescribed medications. HHS: Request, CM will set up. DME: Home O2, shower chair, glucometer, [facility]. Patient gives permission to speak with family members/care givers. 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 CM discussed the availability of HH, Rehab, SNF, OP Therapy, DME services. Patient's daughter, Tamera, request HHS, hospital bed, portable O2, Nebulizer, HHS and feels safe returning to previous environment. Patient denies hospitalization within the past 30 days. 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 Transportation at time of discharge: Tamera Ulloa. CM will assist PRN with DC needs/plans. DCPIA - Discharge Planning Initial Assessment Updated by [email or web address]: Rebecca Saab on 12/15/19 12:11 pm * Is the patient Alert and Oriented? Yes * PCP Siria Fuentes APRN w/Dr. Buchanan * [facility]acy [facility] * Preadmission Environment Home with Family * ADLs Partial Dependent * Partial ADLs (Assistance needed) Bathing Dressing Medication Management * Equipment Glucometer Shower Chair * Other Equipment Order for Portable O2, Hospital bed, nebulizer, walker from [facility] Has: ome O2, Shower bench * List name and contact numbers for known caregivers / representatives who currently or will assist patient after discharge: Tamera Ulloa (dtr) [phone] * Verbal permission to speak to the caregivers and representatives has been obtained from the patient. Yes * Community resources currently utilized Home Health Private Duty Care * Please name any agencies selected above. [facility]" caregiver * Additional services required to return to the preadmission environment? Yes * Can the patient safely return to the preadmission environment? Yes * Has this patient been hospitalized within the prior 30 days at any hospital? No Coverage Notice Reviewer: [id number] Florencia Saab Notice Issued Date-Time: 12/15/2019 12:13 Notice Type: Patient Choice Letter Notice Delivered To: Patient Relationship to Patient: Self Manager Material Name: Keith Ulloa Delivery Method: HAND - Hand Delivered Whitney Days: Prior Verbal Notification: Recipient Understood Notice: Yes Recipient Signature: Yes Med Rec Note Co-signed by Attending: Coverage Notice Comment: [facility] Reviewer: [id number] Florencia Saab Notice Issued Date-Time: 12/15/2019 12:13 Notice Type: IM Discharge Notice Notice Delivered To: Patient Relationship to Patient: Self Manager Material Name: Keith Ulloa Delivery Method: HAND - Hand Delivered Whitney Days: Prior Verbal Notification: Recipient Understood Notice: Yes Recipient Signature: Yes Med Rec Note Co-signed by Attending: Coverage Notice Comment: DC IMM signed/given to patient. Last DP export: 12/15/19 11:39 a Patient Name: KEITH ULLOA Page [phone] at 1337 All edits/amendments must be made on the electronic document DICTATION DATE: 12/15/191336 ELECTR[employer]ODUCTS SALES ENGINEER: SIMON 12/15/191336 RPT#: [id number] DC DATE: STATUS: ADM IN [facility] [address] [place] [address] END OF REPORT
[2019-12-15 16:19] VITALS: BP 134/56
--- NOTE | 2019-12-15 18:33 | NUR ---
I have reviewed this patient and I concur with the Shift Assessment completed by the Licensed Practical Nurse today this shift.
--- NOTE | 2019-12-15 19:30 | NUR ---
PT UP IN CHAIR, AAO X 3, RESP EVEN AND UNLABORED, NO DISTRESS NOTED, CL IN REACH, SR X 2. NO C/O PAIN OR DISCOMFORT NOTED.
[2019-12-15 20:20] VITALS: BP 142/44
[2019-12-15 22:07] LABS: FUNGAL - ASP FLAVUS Negative (Neg:<1:1); FUNGAL - ASP NIGER Negative (Neg:<1:1); FUNGAL - ASPER FUMIGATUS Negative (Neg:<1:1)
[2019-12-16 01:05] VITALS: BP 136/42
[2019-12-16 05:49] LABS: BASOPHILS 0.2 % (0-2); EOSINOPHILS 0 % (0-7); HEMATOCRIT 29.9 % (36.0-48.0); HEMOGLOBIN 9.8 g/dL (12-16); IMMATURE GRANULOCYTES 2.6 % (0-5); LYMPHOCYTES 4.4 % (15-50); MCH 30.7 pg (26.0-34.0); MCHC 32.8 g/dL (31.0-37.0); MCV 93.7 fL (80.0-100.0); MONOCYTES 1.7 % (2-11); NEUTROPHILS 91.1 % (40-80); PLATELET COUNT 196 10x3/uL (130-400); RBC 3.19 10x6/uL (4.00-5.40); RDW 15.3 % (11.5-14.5); WBC 11.7 10x3/uL (4.8-10.8)
[2019-12-16 06:03] VITALS: BP 140/58
[2019-12-16 06:04] LABS: ANION GAP 8.1 mmol/L (8-16); CALCIUM 8.7 mg/dL (8.5-10.1); CARBON DIOXIDE 30.3 mmol/L (21.0-32.0); CREATININE - SERUM 1.1 mg/dL (0.6-1.3); POTASSIUM - SERUM 4.4 mmol/L (3.5-5.1)
[2019-12-16 08:30] VITALS: BP 133/60
--- NOTE | 2019-12-16 10:58 | NUR ---
PT AWAKE AND ORIENTED, TOOK MEDICATIONS WITHOUT COMPLICATIONS. NO COMPLAINTS OR CONCERNS THIS AM. CL IN REACH, SRX2.
[2019-12-16 11:30] VITALS: BP 140/58
[2019-12-16 15:30] VITALS: BP 118/50
--- NOTE | 2019-12-16 17:00 | NUR ---
PT AWAKE AND ORIENTED, ONCE AGAIN PROVIDED EDUCATION REGARDING DIABETES. PT VERBALIZES UNDERSTANDING. CL IN REACH, SRX2.
[2019-12-16 20:00] VITALS: BP 134/67
[2019-12-17 04:00] VITALS: BP 122/65
[2019-12-17 04:52] LABS: BASOPHILS 0.1 % (0-2); EOSINOPHILS 0 % (0-7); HEMATOCRIT 29.4 % (36.0-48.0); HEMOGLOBIN 9.5 g/dL (12-16); IMMATURE GRANULOCYTES 2.6 % (0-5); LYMPHOCYTES 4.3 % (15-50); MCH 30.3 pg (26.0-34.0); MCHC 32.3 g/dL (31.0-37.0); MCV 93.6 fL (80.0-100.0); MEAN PLATELET VOLUME 10.7 fL (7.4-10.4); MONOCYTES 3.4 % (2-11); NEUTROPHILS 89.6 % (40-80); PLATELET COUNT 168 10x3/uL (130-400); RBC 3.14 10x6/uL (4.00-5.40); RDW 15.5 % (11.5-14.5); WBC 9.8 10x3/uL (4.8-10.8)
[2019-12-17 05:18] LABS: ANION GAP 10.9 mmol/L (8-16); CALCIUM 8.8 mg/dL (8.5-10.1); CARBON DIOXIDE 31.8 mmol/L (21.0-32.0); CREATININE - SERUM 1.3 mg/dL (0.6-1.3); POTASSIUM - SERUM 4.7 mmol/L (3.5-5.1)
[2019-12-17 09:38] VITALS: BP 139/65
--- NOTE | 2019-12-17 10:30 | NUR ---
PT WAS ON ROOM AIR. WE WALKED IN THE ROOM. PT SPO2 DROPPED TO 81%. PT PLACED BACK ON 4lNC. HER SPO2 ELEVATED TO 91%. PT ON 4LNC SITTING IN CHAIR.
--- NOTE | 2019-12-17 10:42 | NUR ---
PT AWAKE AND ORIETNED, SITTING IN CHAIR BESIDE BED WHEN I ENTERED. C/O STILL NEEDING A BM AND HAVING "THRUSH" IN HER MOUTH. PROVIDED MEDICATIONS TO REMEDY THESE COMPLAINTS PER MD ORDER. CL IN REACH
[2019-12-17 13:30] VITALS: BP 101/74
--- NOTE | 2019-12-17 15:06 | NUR ---
I have reviewed this patient and I concur with the Shift Assessment completed by the Licensed Practical Nurse today this shift.
--- NOTE | 2019-12-17 18:24 | NUR ---
PT AWAKE AND ORIENTED, SITTING UP IN CHAIR BESIDE BED. STATES NO BM, BUT LOTS OF FLATULENCE. CL IN REACH, SRX2.
[2019-12-17 20:20] VITALS: BP 144/57
[2019-12-18 04:00] VITALS: BP 141/48
[2019-12-18 05:24] LABS: BASOPHILS 0.1 % (0-2); EOSINOPHILS 0.1 % (0-7); HEMATOCRIT 33.7 % (36.0-48.0); HEMOGLOBIN 10.8 g/dL (12-16); LYMPHOCYTES 2.1 % (15-50); MCH 30.7 pg (26.0-34.0); MEAN PLATELET VOLUME 11.5 fL (7.4-10.4); MONOCYTES 4.5 % (2-11); NEUTROPHILS 91.2 % (40-80); RBC 3.52 10x6/uL (4.00-5.40)
[2019-12-18 05:27] LABS: MCV 95.7 fL (80.0-100.0); PLATELET COUNT 205 10x3/uL (130-400); WBC 13.2 10x3/uL (4.8-10.8)
[2019-12-18 05:35] LABS: CALCIUM 8.7 mg/dL (8.5-10.1); CARBON DIOXIDE 35.6 mmol/L (21.0-32.0); CREATININE - SERUM 1.4 mg/dL (0.6-1.3); POTASSIUM - SERUM 4.6 mmol/L (3.5-5.1)
[2019-12-18 08:00] VITALS: BP 135/46
[2019-12-18] MEDS ORDERED: NYSTATIN100000 UN4 PO (08:13)
[2019-12-18] MEDS ORDERED: PREDNISONE10 MG PO (08:23)
--- NOTE | 2019-12-18 09:21 | MORECARE ---
CASE MANAGEMENT DISCHARGE SUMMARY PATIENT: KEITH ULLOA UNIT: [id number] ADM DATE: 12/09/19 AGE: 74 : 46 SEX: F ROOM/BED: D.7173 AUTHOR: MERRILL,DOC PHYSICIAN: REFERRING PHYSICIAN: MIRTA BERGMAN MD DATE OF SERVICE: 12/18/19 Discharge Plan Patient Name: KEITH ULLOA Facility: [facility]:[place] : 1945 Planned Disposition: Home Health Service Anticipated Discharge Date: Discharge Date: Expected LOS: 0 Initial Reviewer: [email or web address] Initial Review Date: 12/09/2019 Generated: 12/18/19 10:20 am Comments DCP- Discharge Planning Updated by [email or web address]: Rebecca Saab on 12/18/19 8:[address] 0910: Per request of Izabela, with [facility], patient will require a walk test for portability and since the patient is on 5L, she will require the walk portion to be on 4L. CM faxed DC summary and Pulmonary progress note to Carmina with [facility]. DCP- Discharge Planning Updated by [id number]: Rebecca Saab on 12/15/19 12:[address] DC Plan: CM contacted Mary with [facility] with orders for a hospital bed, RW, Nebulizer, portable O2. Contacted [facility], spoke with Petra, faxed information for O/A, PT services. Patient will require a RA sat prior to DC, in order to qualify for a portable O2 tank. CM met with patient to discuss initial discharge planning. Patient is in agreement to proceed with the assessment. Patient reports that she lives at home partially independent with her daughter, Tamera Ulloa ([phone]). Patient is alert/oriented. Stairs/steps: PCP: kayce Knight APRN/Dr. Buchanan. [facility]acy[facility]. Patient states she has been able to obtain all of her prescribed medications. [facility]: Request, CM will set up. DME: Home O2, shower chair, glucometer, [facility]. Patient gives permission to speak with family members/care givers. 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 CM discussed the availability of HH, Rehab, SNF, OP Therapy, DME services. Patient's daughter, Tamera, request HHS, hospital bed, portable O2, Nebulizer, HHS and feels safe returning to previous environment. Patient denies hospitalization within the past 30 days. 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 Transportation at time of discharge: Tamera Ulloa. CM will assist PRN with DC needs/plans. DCPIA - Discharge Planning Initial Assessment Updated by [id number]: Rebecca Saab on 12/15/19 12:11 pm * Is the patient Alert and Oriented? Yes * PCP Siria Fuentes APRN w/Dr. Buchanan * [facility] * Preadmission Environment Home with Family * ADLs Partial Dependent * Partial ADLs (Assistance needed) Bathing Dressing Medication Management * Equipment Glucometer Shower Chair * Other Equipment Order for Portable O2, Hospital bed, nebulizer, walker from [facility] Has: ome O2, Shower bench * List name and contact numbers for known caregivers / representatives who currently or will assist patient after discharge: Tamera Ulloa (dtr) [phone] * Verbal permission to speak to the caregivers and representatives has been obtained from the patient. Yes * Community resources currently utilized Home Health Private Duty Care * Please name any agencies selected above. [facility]" caregiver * Additional services required to return to the preadmission environment? Yes * Can the patient safely return to the preadmission environment? Yes * Has this patient been hospitalized within the prior 30 days at any hospital? No Coverage Notice Reviewer: [id number] Florencia Saab Notice Issued Date-Time: 12/15/2019 12:13 Notice Type: Patient Choice Letter Notice Delivered To: Patient Relationship to Patient: Self Bingo Caller Name: Keith Ulloa Delivery Method: HAND - Hand Delivered Whitney Days: Prior Verbal Notification: Recipient Understood Notice: Yes Recipient Signature: Yes Med Rec Note Co-signed by Attending: Coverage Notice Comment: Patient choice for [facility] and [facility] Reviewer: [id number] Florencia Saab Notice Issued Date-Time: 12/15/2019 12:13 Notice Type: IM Discharge Notice Notice Delivered To: Patient Relationship to Patient: Self Bingo Caller Name: Keith Ulloa Delivery Method: HAND - Hand Delivered Whitney Days: Prior Verbal Notification: Recipient Understood Notice: Yes Recipient Signature: Yes Med Rec Note Co-signed by Attending: Coverage Notice Comment: DC IMM signed/given to patient. Last DP export: 12/15/19 12:37 p Patient Name: KEITH ULLOA Page [phone] at 0921 All edits/amendments must be made on the electronic document DICTATION DATE: 12/18/19920 FRONT OFFICE CLERK: SIMON 12/18/19920 RPT#: [id number] DC DATE: STATUS: ADM IN [facility] [address] [place] [address] END OF REPORT
--- NOTE | 2019-12-18 10:00 | NUR ---
PT AWAKE AND ORIENTED, REFUSED CHRONULAC D/T HAVING BM ALL NIGHT. CL IN REACH,S RX2. PENDING D/C WHEN Reinaldo MCKEE SEE'S HER.
--- NOTE | 2019-12-18 11:28 | MORECARE ---
CASE MANAGEMENT DISCHARGE SUMMARY PATIENT: KEITH ULLOA UNIT: [id number] ADM DATE: 12/09/19 AGE: 74 : 46 SEX: F ROOM/BED: D.4983 AUTHOR: MERRILL,DOC PHYSICIAN: REFERRING PHYSICIAN: MIRTA BERGMAN MD DATE OF SERVICE: 12/18/19 Discharge Plan Patient Name: KEITH ULLOA Facility: [facility]:[place] : 1945 Planned Disposition: Home Health Service Anticipated Discharge Date: 12/18/19 Discharge Date: Expected LOS: 9 Initial Reviewer: [email or web address] Initial Review Date: 12/09/2019 Generated: 12/18/19 12:27 pm Comments DCP- Discharge Planning Updated by [id number]: Rebecca Saab on 12/18/19 8:[address] 0910: Per request of Izabela, with [facility], patient will require a walk test for portability and since the patient is on 5L, she will require the walk portion to be on 4L. CM faxed DC summary and Pulmonary progress note to Carmina with [facility]. DCP- Discharge Planning Updated by [email or web address]: Rebecca Saab on 12/15/19 12:[address] DC Plan: CM contacted Mary with [facility] with orders for a hospital bed, RW, Nebulizer, portable O2. Contacted [facility], spoke with Petra, faxed information for O/A, PT services. Patient will require a RA sat prior to DC, in order to qualify for a portable O2 tank. CM met with patient to discuss initial discharge planning. Patient is in agreement to proceed with the assessment. Patient reports that she lives at home partially independent with her daughter, Tamera Ulloa ([phone]). Patient is alert/oriented. Stairs/steps: PCP: kayce Knight APRN/Dr. Buchanan. Pharmacy: [facility]. Patient states she has been able to obtain all of her prescribed medications. [facility]: Request, CM will set up. DME: Home O2, shower chair, glucometer, [facility]. Patient gives permission to speak with family members/care givers. 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 CM discussed the availability of HH, Rehab, SNF, OP Therapy, DME services. Patient's daughter, Tamera, request HHS, hospital bed, portable O2, Nebulizer, HHS and feels safe returning to previous environment. Patient denies hospitalization within the past 30 days. Patient denies the use of community resources HARDWARE MANAGER. Transportation at time of discharge: Tamera Ulloa. CM will assist PRN with DC needs/plans. DCPIA - Discharge Planning Initial Assessment Updated by [id number]: Rebecca Saab on 12/15/19 12:11 pm * Is the patient Alert and Oriented? Yes * PCP Siria Fuentes APRN w/Dr. Buchanan * Pharmacy [facility] * Preadmission Environment Home with Family * ADLs Partial Dependent * Partial ADLs (Assistance needed) Bathing Dressing Medication Management * Equipment Glucometer Shower Chair * Other Equipment Order for Portable O2, Hospital bed, nebulizer, walker from [facility] Has: ome O2, Shower bench * List name and contact numbers for known caregivers / representatives who currently or will assist patient after discharge: Tamera Ulloa (dtr) [phone] * Verbal permission to speak to the caregivers and representatives has been obtained from the patient. Yes * Community resources currently utilized Home Health Private Duty Care * Please name any agencies selected above. [facility]" caregiver * Additional services required to return to the preadmission environment? Yes * Can the patient safely return to the preadmission environment? Yes * Has this patient been hospitalized within the prior 30 days at any hospital? No Coverage Notice Reviewer: [id number] Florencia Saab Notice Issued Date-Time: 12/15/2019 12:13 Notice Type: Patient Choice Letter Notice Delivered To: Patient Relationship to Patient: Self Text[employer] Sales Representative Name: Keith Ulloa Delivery Method: HAND - Hand Delivered Whitney Days: Prior Verbal Notification: Recipient Understood Notice: Yes Recipient Signature: Yes Med Rec Note Co-signed by Attending: Coverage Notice Comment: Patient choice for [facility] Reviewer: [id number] Florencia Saab Notice Issued Date-Time: 12/15/2019 12:13 Notice Type: IM Discharge Notice Notice Delivered To: Patient Relationship to Patient: Self [employer] Sales Representative Name: Keith Ulloa Delivery Method: HAND - Hand Delivered Whitney Days: Prior Verbal Notification: Recipient Understood Notice: Yes Recipient Signature: Yes Med Rec Note Co-signed by Attending: Coverage Notice Comment: DC IMM signed/given to patient. Last DP export: 12/18/19 8:21 am Patient Name: KEITH ULLOA Page [phone] at 1128 All edits/amendments must be made on the electronic document DICTATION DATE: 12/18/191127 WOOD FILLER: SIMON 12/18/19 1128 RPT#: [id number] DC DATE: STATUS: ADM IN [facility] [address] [place] [address] END OF REPORT
--- NOTE | 2019-12-18 12:02 | MORECARE ---
CASE MANAGEMENT DISCHARGE SUMMARY PATIENT: KEITH ULLOA UNIT: [id number] ADM DATE: 12/09/19 AGE: 74 : 46 SEX: F ROOM/BED: D.6723 AUTHOR: MERRILL,DOC PHYSICIAN: REFERRING PHYSICIAN: MIRTA BERGMAN MD DATE OF SERVICE: 12/18/19 Discharge Plan Patient Name: KEITH ULLOA Facility: [facility]:[place] : 1945 Planned Disposition: Home Health Service Anticipated Discharge Date: 12/18/19 Discharge Date: Expected LOS: 9 Initial Reviewer: [id number] Initial Review Date: 12/09/2019 Generated: 12/18/19 1:01 pm Comments DCP- Discharge Planning Updated by [id number]: Rebecca Saab on 12/18/19 10:[address] 11:45: Per Dr. shoemaker, the patient needs another day, due to hemoptysis and titrating IV Steroids. CM notified patient's daughter, Tamera of same. CM contacted Carine with [facility], regarding patient's delay in DC. Additional information faxed per request. 0910: Per request of Izabela, with [facility], patient will require a walk test for portability and since the patient is on 5L, she will require the walk portion to be on 4L. CM faxed DC summary and Pulmonary progress note to Carmina with [facility]. DCP- Discharge Planning Updated by [id number]: Rebecca Saab on 12/15/19 12:[address] DC Plan: CM contacted Mary with [facility] with orders for a hospital bed, RW, Nebulizer, portable O2. Contacted [facility], spoke with Petra, faxed information for O/A, PT services. Patient will require a RA sat prior to DC, in order to qualify for a portable O2 tank. CM met with patient to discuss initial discharge planning. Patient is in agreement to proceed with the assessment. Patient reports that she lives at home partially independent with her daughter, Tamera Ulloa ([phone]). Patient is alert/oriented. Stairs/steps: PCP: kayce Knight APRN/Dr. Buchanan. Pharmacy[facility]. Patient states she has been able to obtain all of her prescribed medications. [facility]HS: Request, CM will set up. DME: Home O2, shower chair, glucometer, [facility]. Patient gives permission to speak with family members/care givers. 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 CM discussed the availability of HH, Rehab, SNF, OP Therapy, DME services. Patient's daughter, Tamera, request HHS, hospital bed, portable O2, Nebulizer, HHS and feels safe returning to previous environment. Patient denies hospitalization within the past 30 days. Patient denies the use of community resources PASTE MIXER. Transportation at time of discharge: Tamera Ulloa. CM will assist PRN with DC needs/plans. DCPIA - Discharge Planning Initial Assessment Updated by [id number]: Rebecca Saab on 12/15/19 12:11 pm * Is the patient Alert and Oriented? Yes * PCP Siria Fuentes APRN w/Dr. Buchanan * Pharmacy [facility] * Preadmission Environment Home with Family * ADLs Partial Dependent * Partial ADLs (Assistance needed) Bathing Dressing Medication Management * Equipment Glucometer Shower Chair * Other Equipment Order for Portable O2, Hospital bed, nebulizer, walker from [facility] Has: ome O2, Shower bench * List name and contact numbers for known caregivers / representatives who currently or will assist patient after discharge: Tamera Ulloa (dtr) [phone] * Verbal permission to speak to the caregivers and representatives has been obtained from the patient. Yes * Community resources currently utilized Home Health Private Duty Care * Please name any agencies selected above. [employer]" caregiver * Additional services required to return to the preadmission environment? Yes * Can the patient safely return to the preadmission environment? Yes * Has this patient been hospitalized within the prior 30 days at any hospital? No Coverage Notice Reviewer: [id number] - Rebecca Saab Notice Issued Date-Time: 12/15/2019 12:13 Notice Type: Patient Choice Letter Notice Delivered To: Patient Relationship to Patient: Self De Ionizer Operator Name: Keith Ulloa Delivery Method: HAND - Hand Delivered Whitney Days: Prior Verbal Notification: Recipient Understood Notice: Yes Recipient Signature: Yes Med Rec Note Co-signed by Attending: Coverage Notice Comment: Patient choice for [facility] Reviewer: [id number] Florencia Saab Notice Issued Date-Time: 12/15/2019 12:13 Notice Type: IM Discharge Notice Notice Delivered To: Patient Relationship to Patient: Self De Ionizer Operator Name: Keith Ulloa Delivery Method: HAND - Hand Delivered Whitney Days: Prior Verbal Notification: Recipient Understood Notice: Yes Recipient Signature: Yes Med Rec Note Co-signed by Attending: Coverage Notice Comment: DC IMM signed/given to patient. Last DP export: 12/18/19 10:28 am Patient Name: KEITH ULLOA Page [phone] at 1202 All edits/amendments must be made on the electronic document DICTATION DATE: 12/18/19 120 LIGHT TRUCK DRIVER: SIMON 12/18/19 1201 RPT#: [id number] DC DATE: STATUS: ADM IN [facility] [address] [place] [address] END OF REPORT
--- NOTE | 2019-12-18 12:41 | NUR ---
Nutrition Follow-up: Eating well. Diet: Diabetic PO intake: 100% x last 7 meals Wt: 189.8# (12/13) Last BM: 12/17 Labs noted: Glu 319 Meds noted: Solumedrol, Nystatin, Lactulose, Humulin, Metamucil, HCTZ -Monitor wt. -RD following.
--- NOTE | 2019-12-18 19:00 | NUR ---
EVENING ROUNDS COMPLETE. PT SITTING IN CHAIR NEXT TO BED. NO SIGNS OF DISTRESS. PT DENIES ANY PAIN OR NEEDS AT THIS TIME, AAOX4. CL IN REACH, BED IN LOWEST POSITION.
[2019-12-18 20:00] VITALS: BP 137/54
[2019-12-19 00:59] VITALS: BP 123/48
[2019-12-19 05:11] VITALS: BP 158/67
--- NOTE | 2019-12-19 07:00 | NUR ---
RECEIVED REPORT. ASSUMED CARE OF PATIENT. CALL LIGHT WITHIN REACH. SITTING TO CHAIR AT BEDSIDE. DENIES NEEDS AT THIS TIME. BEDSIDE SHIFT REPORT COMPLETE. WHITE BOARD UPDATED. RESP EVEN AND UNLABORED.
--- NOTE | 2019-12-19 07:15 | NUR ---
FRESH ICE WATER PROVIDED UPON REQUEST.
[2019-12-19 08:00] VITALS: BP 135/80
--- NOTE | 2019-12-19 10:08 | NUR ---
CALL INTO [facility] PER DR MCKEE DOES NOT FEEL THIS IS A SAFE DISCHARGE AT THIS TIME WHEN I CALLED FOR FURTHER ORDERS. I HAD TO LEAVE A VOICE MESSAGE. DR MCKEE STATES WBC AND OXYGEN LEVEL IS GOING UP AND THERE ARE NEW INFILTRATES TO LEFT BASE. AWAITING MIREYA TO CALL BACK.
--- NOTE | 2019-12-19 10:12 | NUR ---
MIREYA TO CALL BACK AND INFORMATION IS RELAYED TO HIM. NEW ORDER TO CANCEL DISCHARGE AT THIS TIME.
[2019-12-19 11:00] VITALS: BP 146/49
--- NOTE | 2019-12-19 12:29 | NUR ---
FSBS 327. 8 UNITS HUMULIN ADMINISTERED PER SLIDING SCALE. PATIENT TOLERATING IV FLUIDS WELL.
[2019-12-19 15:00] VITALS: BP 150/69
--- NOTE | 2019-12-19 17:22 | NUR ---
FSBS 386. 10 UNITS HUMULIN ADMINISTERED PER SLIDING SCALE. NO DISTRESS.
--- NOTE | 2019-12-19 19:00 | NUR ---
REPORT RECEIVED, WILL CONTINUE POC. PATIENT IS AAOX4, SITTIGN UP IN BED. NO S/S OF DISTRESS OBSERVED, RR EVEN AND UNLABORED ON 5L O2 VIA NC. PATIENT DENIES NEEDS AT THIS TIME. CL IN REACH, BED LOCKED AND LOWERED. WILL CTM.
[2019-12-19 20:00] VITALS: BP 154/65
[2019-12-20] VITALS: BP 139/52
[2019-12-20 04:00] VITALS: BP 125/64
[2019-12-20 05:31] LABS: BASOPHILS 0.1 % (0-2); EOSINOPHILS 0.2 % (0-7); HEMATOCRIT 29.4 % (36.0-48.0); HEMOGLOBIN 9.3 g/dL (12-16); IMMATURE GRANULOCYTES 1.7 % (0-5); LYMPHOCYTES 7.5 % (15-50); MCH 29.9 pg (26.0-34.0); MCHC 31.6 g/dL (31.0-37.0); MCV 94.5 fL (80.0-100.0); MEAN PLATELET VOLUME 11.3 fL (7.4-10.4); MONOCYTES 4.3 % (2-11); NEUTROPHILS 86.2 % (40-80); RBC 3.11 10x6/uL (4.00-5.40); RDW 16.3 % (11.5-14.5); WBC 12.1 10x3/uL (4.8-10.8)
[2019-12-20 05:32] LABS: PLATELET COUNT 153 10x3/uL (130-400)
[2019-12-20 06:05] LABS: ANION GAP 5.7 mmol/L (8-16); CALCIUM 8.7 mg/dL (8.5-10.1); CARBON DIOXIDE 33.4 mmol/L (21.0-32.0); CREATININE - SERUM 1.2 mg/dL (0.6-1.3); POTASSIUM - SERUM 4.1 mmol/L (3.5-5.1)
[2019-12-20 08:00] VITALS: BP 136/57
[2019-12-20 11:00] VITALS: BP 130/57
[2019-12-20 15:00] VITALS: BP 132/58
--- NOTE | 2019-12-20 17:27 | NUR ---
OT NOTE: PT COMPLETED SIT TO STAND WITH CGA. PT EDUCATED TO USE CALL LIGHT FOR ASSISTANCE. PT STATED LOWER BACK IN PAINFUL. NURSING PRESENT. PT COMPLETED SITTING BALANCE WITH SBA. PT COMPLETED CAYETANO/DOFF SOCKS WITH SETUP. PT COMPLETED HAIR GROOMING WITH SETUP. [phone] THANK YOU, MATT SERRANO
--- NOTE | 2019-12-20 19:30 | NUR ---
PT SITTING IN CHAIR WATCHING TV. SHE IS ON 4.5L NASAL CANNULA. NO DISTRESS NOTED. SHE REPORTS SHORTNESS OF BREATH ON EXERTION. O2 SAT 95%. SHE DENIES PAIN OR NEEDS. CALL LIGHT IS WITHIN REACH.
[2019-12-20 20:00] VITALS: BP 115/51
--- NOTE | 2019-12-20 20:00 | NUR ---
REPORT RECEIVED, WILL CONT POC. PT ALERT AND ORIENTED, SITTING UP IN BED. NO S/S OF DISTRESS OVSERVED. RR EVEN AND UNLABORED ON 6 L OF O2 VIA NC. PT DENIES NEEDS AT THIS TIME. CALL LIGHT AT LEFT HAND, BED LOCKED AND LOWERED. WILL CONT TO MONITOR.
[2019-12-21] VITALS: BP 110/53
[2019-12-21 04:00] VITALS: BP 117/96
[2019-12-21 06:26] LABS: BASOPHILS 0.1 % (0-2); EOSINOPHILS 0.2 % (0-7); HEMATOCRIT 28.6 % (36.0-48.0); HEMOGLOBIN 9.1 g/dL (12-16); IMMATURE GRANULOCYTES 1.6 % (0-5); MCH 30.4 pg (26.0-34.0); MCHC 31.8 g/dL (31.0-37.0); MCV 95.7 fL (80.0-100.0); MEAN PLATELET VOLUME 11.2 fL (7.4-10.4); MONOCYTES 4.2 % (2-11); NEUTROPHILS 87.9 % (40-80); PLATELET COUNT 147 10x3/uL (130-400); RBC 2.99 10x6/uL (4.00-5.40); RDW 16.3 % (11.5-14.5); WBC 12.2 10x3/uL (4.8-10.8)
[2019-12-21 08:01] VITALS: BP 149/55
--- NOTE | 2019-12-21 11:16 | NUR ---
Nutrition Follow-up: Eating well. Ate 100% of breakfast this AM. Reports last BM 4 days ago and having abd cramping 2/2 Lactulose. Diet: Diabetic PO intake: 75-100% Wt: 181.7# (12/18); 186.6# (12/11) Labs reviewed Meds noted: NS @ 50, Prednisone, HCTZ, Nystatin, Lactulose, Humulin, Metamucil -Monitor wt; noted daily wts ordered. -RD following.
[2019-12-21 12:13] VITALS: BP 127/56
[2019-12-21 15:10] VITALS: BP 141/57
--- NOTE | 2019-12-21 16:25 | NUR ---
PATIENTS BLOOD SUGAR WAS 495, [facility]REYA SUÁREZ CALLED AND NOTIFIED AND ORDER TO GIVE REGULAR INSULIN 15 UNITS 1 TIME.
[2019-12-21 20:00] VITALS: BP 136/50
[2019-12-22 04:00] VITALS: BP 148/55
[2019-12-22 05:59] LABS: BASOPHILS 0.1 % (0-2); EOSINOPHILS 0.1 % (0-7); HEMATOCRIT 29.7 % (36.0-48.0); HEMOGLOBIN 9.6 g/dL (12-16); IMMATURE GRANULOCYTES 2.5 % (0-5); LYMPHOCYTES 3.8 % (15-50); MCH 30.8 pg (26.0-34.0); MCHC 32.3 g/dL (31.0-37.0); MCV 95.2 fL (80.0-100.0); MEAN PLATELET VOLUME 11.1 fL (7.4-10.4); MONOCYTES 10.2 % (2-11); NEUTROPHILS 83.3 % (40-80); PLATELET COUNT 164 10x3/uL (130-400); RBC 3.12 10x6/uL (4.00-5.40); RDW 16.5 % (11.5-14.5); WBC 12.6 10x3/uL (4.8-10.8)
[2019-12-22 06:55] LABS: ANION GAP 9.2 mmol/L (8-16); CALCIUM 8.5 mg/dL (8.5-10.1); CREATININE - SERUM 1.4 mg/dL (0.6-1.3); POTASSIUM - SERUM 4.2 mmol/L (3.5-5.1)
[2019-12-22 07:08] LABS: % SATURATION 29 % (15-55); IRON 70 ug/dl (35-150); TOTAL IRON BIND CAPACITY 241 ug/dl (260-445); UNSAT IRON BIND CAPACITY 171 ug/dl (150-375)
[2019-12-22 09:11] VITALS: BP 102/66
[2019-12-22 12:04] VITALS: BP 109/49
--- NOTE | 2019-12-22 13:15 | NUR ---
PATIENT HAD LEGS ELEVATED ON BED AND NOTICED SWELLING TO BOTH LOWER LEGS AND FEET. LEFT LOWER LEG WITH SMALL QUARTER SIZE BLISTER NOTED. WRAPPED WITH 4X4S AND KERLEX. ATTEMPTED TO CALL MIREYA. WILL TRY AGAIN LATER.
--- NOTE | 2019-12-22 15:10 | NUR ---
OT NOTE: (AM) PT COMPLETED SIT TO STAND WITH CGA/SBA. PT COMPLETED SITTING BALANCE WITH SPV. PT COMPLETED HAIR GROOMING AND FACE WASHING WITH SETUP SITTING IN CHAIR. GUTIERREZ NOTIFIED NURSING OF EDEMA AND BLISTERS ON PT LLE. (PM) PT SITTING UP IN CHAIR. PT STATED BLISTER IS WEEPING . NOTIFIED NURSING . NURSING STATED SHE WOULD WRAP LLE. PT COMPLETED UB HYGIENE TASKS WITH SET UP. PT COMPLETED UE AROM WITH FUNCTIONAL TASKS. [phone] MANISHA VAZ COTA
--- NOTE | 2019-12-22 16:02 | MORECARE ---
CASE MANAGEMENT DISCHARGE SUMMARY PATIENT: KEITH ULLOA UNIT: [id number] ADM DATE: 12/09/19 AGE: 74 : 46 SEX: F ROOM/BED: D.1803 AUTHOR: MERRILL,DOC PHYSICIAN: REFERRING PHYSICIAN: MIRTA BERGMAN MD DATE OF SERVICE: 12/22/19 Discharge Plan Patient Name: KEITH ULLOA Facility: [facility]:[place] : 1945 Planned Disposition: Home Health Service Anticipated Discharge Date: 12/18/19 Discharge Date: Expected LOS: 9 Initial Reviewer: [email or web address] Initial Review Date: 12/09/2019 Generated: 12/22/19 5:01 pm Comments DCP- Discharge Planning Updated by [id number]: Rebecca Saab on 12/22/19 2:[address] CM contacted Rosa, with [employer] [phone], regarding medical equipment and was advised that the medical equipment has been delivered to the home. Contacted [facility] [phone], spoke with Ofelia regarding possible DC home this weekend. GAMAL spoke to Ofelia, regarding [facility] and she said that the person who took the information is no longer with the [employer]. Ofelia states she is not aware of the patient and will check on staffing. Await CB. DCP- Discharge Planning Updated by [id number]: Rebecca Saab on 12/18/19 10:[address] 11:45: Per Dr. shoemaker, the patient needs another day, due to hemoptysis and titrating IV Steroids. CM notified patient's daughter, Tamera of same. CM contacted Carine with [facility], regarding patient's delay in DC. Additional information faxed per request. 0910: Per request of Izabela, with [employer], patient will require a walk test for portability and since the patient is on 5L, she will require the walk portion to be on 4L. CM faxed DC summary and Pulmonary progress note to Carmina with [facility]. DCP- Discharge Planning Updated by [id number]: Rebecca Saab on 12/15/19 12:[address] DC Plan: CM contacted Mary with [facility] with orders for a hospital bed, RW, Nebulizer, portable O2. Contacted [facility], spoke with Petra, faxed information for O/A, PT services. Patient will require a RA sat prior to DC, in order to qualify for a portable O2 tank. CM met with patient to discuss initial discharge planning. Patient is in agreement to proceed with the assessment. Patient reports that she lives at home partially independent with her daughter, Tamera Ulloa ([phone]). Patient is alert/oriented. Stairs/steps: PCP: Siria Fuentes APRN, w/Dr. Buchanan. [facility]acy[facility]. Patient states she has been able to obtain all of her prescribed medications. HHS: Request, CM will set up. DME: Home O2, shower chair, glucometer, [employer]. Patient gives permission to speak with family members/care givers. 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 CM discussed the availability of HH, Rehab, SNF, OP Therapy, DME services. Patient's daughter, Tamera, request HHS, hospital bed, portable O2, Nebulizer, HHS and feels safe returning to previous environment. Patient denies hospitalization within the past 30 days. Patient denies the use of community resources PRIVATE BRANCH EXCHANGE OPERATOR. Transportation at time of discharge: Tamera Ulloa. CM will assist PRN with DC needs/plans. DCPIA - Discharge Planning Initial Assessment Updated by [email or web address]: Rebecca Saab on 12/15/19 12:11 pm * Is the patient Alert and Oriented? Yes * PCP Siria Fuentes APRN w/Dr. Buchanan * Pharmacy [facility] * Preadmission Environment Home with Family * ADLs Partial Dependent * Partial ADLs (Assistance needed) Bathing Dressing Medication Management * Equipment Glucometer Shower Chair * Other Equipment Order for Portable O2, Hospital bed, nebulizer, walker from [employer] Has: ome O2, Shower bench * List name and contact numbers for known caregivers / representatives who currently or will assist patient after discharge: Tamera Ulloa (dtr) [phone] * Verbal permission to speak to the caregivers and representatives has been obtained from the patient. Yes * Community resources currently utilized Home Health Private Duty Care * Please name any agencies selected above. [employer]" caregiver * Additional services required to return to the preadmission environment? Yes * Can the patient safely return to the preadmission environment? Yes * Has this patient been hospitalized within the prior 30 days at any hospital? No Coverage Notice Reviewer: [id number] Florencia Saab Notice Issued Date-Time: 12/15/2019 12:13 Notice Type: Patient Choice Letter Notice Delivered To: Patient Relationship to Patient: Self Manager [employer]ospace Name: Keith Ulloa Delivery Method: HAND - Hand Delivered Whitney Days: Prior Verbal Notification: Recipient Understood Notice: Yes Recipient Signature: Yes Med Rec Note Co-signed by Attending: Coverage Notice Comment: Patient choice for [facility] Reviewer: [id number] Florencia Saab Notice Issued Date-Time: 12/15/2019 12:13 Notice Type: IM Discharge Notice Notice Delivered To: Patient Relationship to Patient: Self Manager Aerospace Name: Keith Ulloa Delivery Method: HAND - Hand Delivered Whitney Days: Prior Verbal Notification: Recipient Understood Notice: Yes Recipient Signature: Yes Med Rec Note Co-signed by Attending: Coverage Notice Comment: DC IMM signed/given to patient. Last DP export: 12/18/19 11:02 am Patient Name: KEITH ULLOA Page [id number] at 1602 All edits/amendments must be made on the electronic document DICTATION DATE: 12/22/191600 HAND ROUTER OPERATOR: SIMON 12/22/19 160 RPT#: [id number] DC DATE: STATUS: ADM IN [facility] [address] [place] [address] END OF REPORT
--- NOTE | 2019-12-22 16:11 | MORECARE ---
CASE MANAGEMENT DISCHARGE SUMMARY PATIENT: KEITH ULLOA UNIT: [id number] ADM DATE: 12/09/19 AGE: 74 : 47 SEX: F ROOM/BED: D.9813 AUTHOR: MERRILL,DOC PHYSICIAN: REFERRING PHYSICIAN: MIRTA BERGMAN MD DATE OF SERVICE: 12/22/19 Discharge Plan Patient Name: KEITH ULLOA Facility: [facility]:[place] : 1945 Planned Disposition: Home Health Service Anticipated Discharge Date: 12/18/19 Discharge Date: Expected LOS: 9 Initial Reviewer: [email or web address] Initial Review Date: 12/09/2019 Generated: 12/22/19 5:10 pm Comments DCP- Discharge Planning Updated by [email or web address]: Rebecca Saab on 12/22/19 3:[address] [facility], who said they have a nursing shortage at this time and will be unable to take this payment (commercial insurance). CM will contact another [facility]. CM contacted Rosa, with [employer] [phone], regarding medical equipment and was advised that the medical equipment has been delivered to the home. Contacted [facility] [phone], spoke with Ofelia regarding possible DC home this weekend. CM spoke to [facility], regarding [facility] and she said that the person who took the information is no longer with the company. Ofelia states she is not aware of the patient and will check on staffing. Await CB. DCP- Discharge Planning Updated by [id number]: Rebecca Saab on 12/18/19 10:[address] 11:45: Per Dr. shoemaker, the patient needs another day, due to hemoptysis and titrating IV Steroids. CM notified patient's daughter, Tamera of same. CM contacted Carine with [facility], regarding patient's delay in DC. Additional information faxed per request. 0910: Per request of Izabela, with [employer], patient will require a walk test for portability and since the patient is on 5L, she will require the walk portion to be on 4L. CM faxed DC summary and Pulmonary progress note to Carmina with [employer]. DCP- Discharge Planning Updated by [email or web address]: Rebecca Saab on 12/15/19 12:[address] DC Plan: CM contacted Mary with [employer] with orders for a hospital bed, RW, Nebulizer, portable O2. Contacted [facility], spoke with Petra, faxed information for O/A, PT services. Patient will require a RA sat prior to DC, in order to qualify for a portable O2 tank. CM met with patient to discuss initial discharge planning. Patient is in agreement to proceed with the assessment. Patient reports that she lives at home partially independent with her daughter, Tamera Ulloa ([phone]). Patient is alert/oriented. Stairs/steps: PCP: Siria Fuentes APRN, w/Dr. Buchanan. [facility]acy: [facility]. Patient states she has been able to obtain all of her prescribed medications. HHS: Request, CM will set up. DME: Home O2, shower chair, glucometer, [employer]. Patient gives permission to speak with family members/care givers. 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 CM discussed the availability of HH, Rehab, SNF, OP Therapy, DME services. Patient's daughter, Tamera, request HHS, hospital bed, portable O2, Nebulizer, HHS and feels safe returning to previous environment. Patient denies hospitalization within the past 30 days. Patient denies the use of community resources ELECTRIC MELT OPERATOR. Transportation at time of discharge: Tamera Ulloa. CM will assist PRN with DC needs/plans. DCPIA - Discharge Planning Initial Assessment Updated by [email or web address]: Rebecca Kaiser on 12/15/19 12:11 pm * Is the patient Alert and Oriented? Yes * PCP Siria Fuentes APRN w/Dr. Buchanan * Pharmacy [facility] * Preadmission Environment Home with Family * ADLs Partial Dependent * Partial ADLs (Assistance needed) Bathing Dressing Medication Management * Equipment Glucometer Shower Chair * Other Equipment Order for Portable O2, Hospital bed, nebulizer, walker from [employer] Has: ome O2, Shower bench * List name and contact numbers for known caregivers / representatives who currently or will assist patient after discharge: Tamera Ulloa (dtr) [phone] * Verbal permission to speak to the caregivers and representatives has been obtained from the patient. Yes * Community resources currently utilized Home Health Private Duty Care * Please name any agencies selected above. [employer]" caregiver * Additional services required to return to the preadmission environment? Yes * Can the patient safely return to the preadmission environment? Yes * Has this patient been hospitalized within the prior 30 days at any hospital? No Coverage Notice Reviewer: [id number] Florencia Saab Notice Issued Date-Time: 12/15/2019 12:13 Notice Type: Patient Choice Letter Notice Delivered To: Patient Relationship to Patient: Self Range Aid Name: Keith Ulloa Delivery Method: HAND - Hand Delivered Whitney Days: Prior Verbal Notification: Recipient Understood Notice: Yes Recipient Signature: Yes Med Rec Note Co-signed by Attending: Coverage Notice Comment: Patient choice for [facility] Reviewer: [id number] Florencia Saab Notice Issued Date-Time: 12/15/2019 12:13 Notice Type: IM Discharge Notice Notice Delivered To: Patient Relationship to Patient: Self Range Aid Name: Keith Ulloa Delivery Method: HAND - Hand Delivered Whitney Days: Prior Verbal Notification: Recipient Understood Notice: Yes Recipient Signature: Yes Med Rec Note Co-signed by Attending: Coverage Notice Comment: DC IMM signed/given to patient. Last DP export: 12/22/19 3:02 pm Patient Name: KEITH ULLOA Page [id number] at 1611 All edits/amendments must be made on the electronic document DICTATION DATE: 12/22/19 161 SED HIGH SCHOOL TEACHER: SIMON 12/22/19 161 RPT#: [id number] DC DATE: STATUS: ADM IN [facility] [address] [place] [address] END OF REPORT
--- NOTE | 2019-12-22 16:29 | MORECARE ---
CASE MANAGEMENT DISCHARGE SUMMARY PATIENT: KETIH ULLOA UNIT: [id number] ADM DATE: 12/09/19 AGE: 74 : 47 SEX: F ROOM/BED: D.2083 AUTHOR: MERRILL,DOC PHYSICIAN: REFERRING PHYSICIAN: MIRTA BERGMAN MD DATE OF SERVICE: 12/22/19 Discharge Plan Patient Name: KEITH ULLOA Facility: [facility]:[place] : 1945 Planned Disposition: Home Health Service Anticipated Discharge Date: 12/18/19 Discharge Date: Expected LOS: 9 Initial Reviewer: [email or web address] Initial Review Date: 12/09/2019 Generated: 12/22/19 5:29 pm Comments DCP- Discharge Planning Updated by [id number]: Rebecca Saab on 12/22/19 3:[address] [facility], who said they have a nursing shortage at this time and will be unable to take this payment (commercial insurance). CM will contact another [facility]. CM contacted Rosa, with [employer] [phone], regarding medical equipment and was advised that the medical equipment has been delivered to the home. Contacted [facility] [phone], spoke with Ofelia regarding possible DC home this weekend. CM spoke to [facility], regarding [facility] and she said that the person who took the information is no longer with the company. Ofelia states she is not aware of the patient and will check on staffing. Await CB. DCP- Discharge Planning Updated by [id number]: Rebecca Saab on 12/18/19 10:[address] 11:45: Per Dr. shoemaker, the patient needs another day, due to hemoptysis and titrating IV Steroids. CM notified patient's daughter, Tamera of same. CM contacted Carine with [facility], regarding patient's delay in DC. Additional information faxed per request. 0910: Per request of Izabela, with [employer], patient will require a walk test for portability and since the patient is on 5L, she will require the walk portion to be on 4L. CM faxed DC summary and Pulmonary progress note to Carmina with [employer]. DCP- Discharge Planning Updated by [id number]: Rebecca Saab on 12/15/19 12:[address] DC Plan: CM contacted Mary with [employer] with orders for a hospital bed, RW, Nebulizer, portable O2. Contacted [facility], spoke with Petra, faxed information for O/A, PT services. Patient will require a RA sat prior to DC, in order to qualify for a portable O2 tank. CM met with patient to discuss initial discharge planning. Patient is in agreement to proceed with the assessment. Patient reports that she lives at home partially independent with her daughter, Tamera Ulloa ([phone]). Patient is alert/oriented. Stairs/steps: PCP: Siria Fuentes APRN, w/Dr. Buchanan. Pharmacy: [facility]. Patient states she has been able to obtain all of her prescribed medications. HHS: Request, CM will set up. DME: Home O2, shower chair, glucometer, [employer]. Patient gives permission to speak with family members/care givers. 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 CM discussed the availability of HH, Rehab, SNF, OP Therapy, DME services. Patient's daughter, Tamera, request HHS, hospital bed, portable O2, Nebulizer, HHS and feels safe returning to previous environment. Patient denies hospitalization within the past 30 days. Patient denies the use of community resources OVERNIGHT HOUSEPERSON. Transportation at time of discharge: Tamera Ulloa. CM will assist PRN with DC needs/plans. DCPIA - Discharge Planning Initial Assessment Updated by [id number]: Rebecca Kaiser on 12/15/19 12:11 pm * Is the patient Alert and Oriented? Yes * PCP Siria Fuentes APRN w/Dr. Buchanan * Pharmacy [facility] * Preadmission Environment Home with Family * ADLs Partial Dependent * Partial ADLs (Assistance needed) Bathing Dressing Medication Management * Equipment Glucometer Shower Chair * Other Equipment Order for Portable O2, Hospital bed, nebulizer, walker from [employer] Has: ome O2, Shower bench * List name and contact numbers for known caregivers / representatives who currently or will assist patient after discharge: Tamera Ulloa (dtr) [phone] * Verbal permission to speak to the caregivers and representatives has been obtained from the patient. Yes * Community resources currently utilized Home Health Private Duty Care * Please name any agencies selected above. [employer]" caregiver * Additional services required to return to the preadmission environment? Yes * Can the patient safely return to the preadmission environment? Yes * Has this patient been hospitalized within the prior 30 days at any hospital? No External Providers External Provider: [facility] Next Contact Date: Service Request Date: Service Type: Resolution: Reviewer: Comments: Coverage Notice Reviewer: [email or web address] Florencia Saab Notice Issued Date-Time: 12/15/2019 12:13 Notice Type: Patient Choice Letter Notice Delivered To: Patient Relationship to Patient: Self Truck Crane Operator Name: Keith Ulloa Delivery Method: HAND - Hand Delivered Whitney Days: Prior Verbal Notification: Recipient Understood Notice: Yes Recipient Signature: Yes Med Rec Note Co-signed by Attending: Coverage Notice Comment: Patient choice for [facility] Reviewer: [email or web address] Florencia Saab Notice Issued Date-Time: 12/15/2019 12:13 Notice Type: IM Discharge Notice Notice Delivered To: Patient Relationship to Patient: Self Truck Crane Operator Name: Keith Ulloa Delivery Method: HAND - Hand Delivered Whitney Days: Prior Verbal Notification: Recipient Understood Notice: Yes Recipient Signature: Yes Med Rec Note Co-signed by Attending: Coverage Notice Comment: DC IMM signed/given to patient. Last DP export: 12/22/19 3:11 pm Patient Name: KEITH ULLOA Page [phone] at 1629 All edits/amendments must be made on the electronic document DICTATION DATE: 12/22/191628 CHRONIC SPECIALIST: SIMON 12/22/19 1629 RPT#: [id number] DC DATE: STATUS: ADM IN [facility] [address] [place] [address] END OF REPORT
--- NOTE | 2019-12-22 16:38 | MORECARE ---
CASE MANAGEMENT DISCHARGE SUMMARY PATIENT: KEITH ULLOA UNIT: [id number] ADM DATE: 12/09/19 AGE: 74 : 47 SEX: F ROOM/BED: D.6273 AUTHOR: MERRILL,DOC PHYSICIAN: REFERRING PHYSICIAN: MIRTA BERGMAN MD DATE OF SERVICE: 12/22/19 Discharge Plan Patient Name: KEITH ULLOA Facility: [facility]:[place] : 1945 Planned Disposition: Home Health Service Anticipated Discharge Date: 12/18/19 Discharge Date: Expected LOS: 9 Initial Reviewer: [email or web address] Initial Review Date: 12/09/2019 Generated: 12/22/19 5:37 pm Comments DCP- Discharge Planning Updated by [email or web address]: Rebecca Saab on 12/22/19 3:[address] CM contacted [facility], with [facility] [phone], regarding [facility] for patient. Per Susan, the patient's insurance will require prior-authorization, prior to accepting. CM faxed the required information to [phone]. Patient will not be able to be seen by [facility] on Wednesday, if she is discharged over the weekend. [facility] will be pending prior-authorization with insurance. CB from Shabana Greg, [facility], who said they have a nursing shortage at this time and will be unable to take this payment (commercial insurance). CM will contact another [facility]. CM contacted [facility], with [employer] [phone], regarding medical equipment and was advised that the medical equipment has been delivered to the home. Contacted [facility] [phone], spoke with Ofelia regarding possible DC home this weekend. CM spoke to Ofelia, regarding [facility] and she said that the person who took the information is no longer with the company. Ofelia states she is not aware of the patient and will check on staffing. Await CB. DCP- Discharge Planning Updated by [email or web address]: Rebecca Saba on 12/18/19 10:[address] 11:45: Per Dr. shoemaker, the patient needs another day, due to hemoptysis and titrating IV Steroids. CM notified patient's daughter, Tamera of same. CM contacted Carine with [employer], regarding patient's delay in DC. Additional information faxed per request. 0910: Per request of Izabela, with [facility], patient will require a walk test for portability and since the patient is on 5L, she will require the walk portion to be on 4L. CM faxed DC summary and Pulmonary progress note to Carmina with [facility]. DCP- Discharge Planning Updated by [id number]: Rebecca Kaiser on 12/15/19 12:[address] DC Plan: CM contacted Mary with [facility] with orders for a hospital bed, RW, Nebulizer, portable O2. Contacted [facility], spoke with Petra, faxed information for O/A, PT services. Patient will require a RA sat prior to DC, in order to qualify for a portable O2 tank. CM met with patient to discuss initial discharge planning. Patient is in agreement to proceed with the assessment. Patient reports that she lives at home partially independent with her daughter, Tamera Ulloa ([phone]). Patient is alert/oriented. Stairs/steps: PCP: Siria Fuentes APRN w/Dr. Buchanan. Pharmacy: [facility]. Patient states she has been able to obtain all of her prescribed medications. HHS: Request, CM will set up. DME: Home O2, shower chair, glucometer, [facility]. Patient gives permission to speak with family members/care givers. 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 CM discussed the availability of HH, Rehab, SNF, OP Therapy, DME services. Patient's daughter, Tamera, request HHS, hospital bed, portable O2, Nebulizer, HHS and feels safe returning to previous environment. Patient denies hospitalization within the past 30 days. Patient denies the use of community resources UNLOAD ASSOCIATE. Transportation at time of discharge: Tamera Ulloa. CM will assist PRN with DC needs/plans. DCPIA - Discharge Planning Initial Assessment Updated by [email or web address]: Rebecca Kaiser on 12/15/19 12:11 pm * Is the patient Alert and Oriented? Yes * PCP Siria Fuentes APRN w/Dr. Buchanan * Pharmacy [facility] * Preadmission Environment Home with Family * ADLs Partial Dependent * Partial ADLs (Assistance needed) Bathing Dressing Medication Management * Equipment Glucometer Shower Chair * Other Equipment Order for Portable O2, Hospital bed, nebulizer, walker from [facility] Has: ome O2, Shower bench * List name and contact numbers for known caregivers / representatives who currently or will assist patient after discharge: Tamera Ulloa (dtr) [phone] * Verbal permission to speak to the caregivers and representatives has been obtained from the patient. Yes * Community resources currently utilized Home Health Private Duty Care * Please name any agencies selected above. [employer]" caregiver * Additional services required to return to the preadmission environment? Yes * Can the patient safely return to the preadmission environment? Yes * Has this patient been hospitalized within the prior 30 days at any hospital? No Coverage Notice Reviewer: [id number] Florencia Saab Notice Issued Date-Time: 12/15/2019 12:13 Notice Type: Patient Choice Letter Notice Delivered To: Patient Relationship to Patient: Self Assurance Associate Name: Keith Ulloa Delivery Method: HAND - Hand Delivered Whitney Days: Prior Verbal Notification: Recipient Understood Notice: Yes Recipient Signature: Yes Med Rec Note Co-signed by Attending: Coverage Notice Comment: [facility] choice for [facility] Reviewer: [id number] Florencia Saab Notice Issued Date-Time: 12/15/2019 12:13 Notice Type: IM Discharge Notice Notice Delivered To: Patient Relationship to Patient: Self Assurance Associate Name: Keith Ulloa Delivery Method: HAND - Hand Delivered Whitney Days: Prior Verbal Notification: Recipient Understood Notice: Yes Recipient Signature: Yes Med Rec Note Co-signed by Attending: Coverage Notice Comment: DC IMM signed/given to patient. Last DP export: 12/22/19 3:29 pm Patient Name: KEITH ULLOA Page [id number] at 1638 All edits/amendments must be made on the electronic document DICTATION DATE: 12/22/191637 SHIPYARD PAINTER: SIMON 12/22/191637 RPT#: [id number] DC DATE: STATUS: ADM IN [facility] [address] [place] [address] END OF REPORT
[2019-12-22 16:57] VITALS: BP 131/53
--- NOTE | 2019-12-22 18:25 | MORECARE ---
CASE MANAGEMENT DISCHARGE SUMMARY PATIENT: KEITH ULLOA UNIT: [id number] ADM DATE: 12/09/19 AGE: 74 : 47 SEX: F ROOM/BED: D.0949 AUTHOR: MERRILL,DOC PHYSICIAN: REFERRING PHYSICIAN: MIRTA BERGMAN MD DATE OF SERVICE: 12/22/19 Discharge Plan Patient Name: KEITH ULLOA Facility: [facility]:[place] : 1945 Planned Disposition: Home Health Service Anticipated Discharge Date: 12/18/19 Discharge Date: Expected LOS: 9 Initial Reviewer: [id number] Initial Review Date: 12/09/2019 Generated: 12/22/19 7:25 pm Comments DCP- Discharge Planning Updated by [id number]: Rebecca Saab on 12/22/19 5:[address]. Venegas of the [facility] situation. He states the patient is not ready to DC as yet. CM contacted Susan, with [facility] [phone], regarding [facility] for patient. Per Susan, the patient's insurance will require prior-authorization, prior to accepting. CM faxed the required information to [phone]. Patient will not be able to be seen by [facility] on Wednesday, if she is discharged over the weekend. [facility] will be pending prior-authorization with insurance. CB from [facility], [facility], who said they have a nursing shortage at this time and will be unable to take this payment (commercial insurance). CM will contact another [facility]. GAMAL contacted [facility], with [employer] [phone], regarding medical equipment and was advised that the medical equipment has been delivered to the home. Contacted [facility] [phone], spoke with Ofelia regarding possible DC home this weekend. GAMAL spoke to [facility], regarding [facility] and she said that the person who took the information is no longer with the company. Ofelia states she is not aware of the patient and will check on staffing. Await CB. DCP- Discharge Planning Updated by [id number]: Rebecca Saab on 12/18/19 10:[address] 11:45: Per Dr. shoemaker, the patient needs another day, due to hemoptysis and titrating IV Steroids. CM notified patient's daughter, Tamera of same. CM contacted Carine with [facility], regarding patient's delay in DC. Additional information faxed per request. 0910: Per request of Izabela, with [facility], patient will require a walk test for portability and since the patient is on 5L, she will require the walk portion to be on 4L. CM faxed DC summary and Pulmonary progress note to Carmina with [facility]. DCP- Discharge Planning Updated by [id number]: Rebecca Saab on 12/15/19 12:[address] DC Plan: CM contacted Mary with [facility] with orders for a hospital bed, RW, Nebulizer, portable O2. Contacted [facility], spoke with Petra, faxed information for O/A, PT services. Patient will require a RA sat prior to DC, in order to qualify for a portable O2 tank. CM met with patient to discuss initial discharge planning. Patient is in agreement to proceed with the assessment. Patient reports that she lives at home partially independent with her daughter, Tamera Ulloa ([phone]). Patient is alert/oriented. Stairs/steps: PCP: Siria Fuentes APRN w/Dr. Buchanan. [facility]. Patient states she has been able to obtain all of her prescribed medications. HHS: Request, CM will set up. DME: Home O2, shower chair, glucometer, [employer]. Patient gives permission to speak with family members/care givers. Patient is Independent with all ADL's, medication management MAIL OPENER. CM discussed the availability of HH, Rehab, SNF, OP Therapy, DME services. Patient's daughter, Tamera, request HHS, hospital bed, portable O2, Nebulizer, HHS and feels safe returning to previous environment. Patient denies hospitalization within the past 30 days. Patient denies the use of community resources MAIL OPENER. Transportation at time of discharge: Tamera Ulloa. CM will assist PRN with DC needs/plans. DCPIA - Discharge Planning Initial Assessment Updated by [id number]: Rebecca Saab on 12/15/19 12:11 pm * Is the patient Alert and Oriented? Yes * PCP Siria Fuentes APRN w/Dr. Buchanan * Pharmacy [facility] * Preadmission Environment Home with Family * ADLs Partial Dependent * Partial ADLs (Assistance needed) Bathing Dressing Medication Management * Equipment Glucometer Shower Chair * Other Equipment Order for Portable O2, Hospital bed, nebulizer, walker from [facility] Has: ome O2, Shower bench * List name and contact numbers for known caregivers / representatives who currently or will assist patient after discharge: Tamera Ulloa (dtr) [phone] * Verbal permission to speak to the caregivers and representatives has been obtained from the patient. Yes * Community resources currently utilized Home Health Private Duty Care * Please name any agencies selected above. [employer]" caregiver * Additional services required to return to the preadmission environment? Yes * Can the patient safely return to the preadmission environment? Yes * Has this patient been hospitalized within the prior 30 days at any hospital? No Coverage Notice Reviewer: [id number] Florencia Saab Notice Issued Date-Time: 12/15/2019 12:13 Notice Type: Patient Choice Letter Notice Delivered To: Patient Relationship to Patient: Self Mine Patrol Name: Keith Ulloa Delivery Method: HAND - Hand Delivered Whitney Days: Prior Verbal Notification: Recipient Understood Notice: Yes Recipient Signature: Yes Med Rec Note Co-signed by Attending: Coverage Notice Comment: Patient choice for [facility] [place] [facility] Reviewer: [id number] Florencia Saab Notice Issued Date-Time: 12/15/2019 12:13 Notice Type: IM Discharge Notice Notice Delivered To: Patient Relationship to Patient: Self Mine Patrol Name: Keith Ulloa Delivery Method: HAND - Hand Delivered Whitney Days: Prior Verbal Notification: Recipient Understood Notice: Yes Recipient Signature: Yes Med Rec Note Co-signed by Attending: Coverage Notice Comment: DC IMM signed/given to patient. Last DP export: 12/22/19 3:38 pm Patient Name: KEITH ULLOA Page [id number] at 1825 All edits/amendments must be made on the electronic document DICTATION DATE: 12/22/191824 SCREEN PRINT OPERATOR: SIMON 12/22/191824 RPT#: [id number] DC DATE: STATUS: ADM IN [facility] [address] [place] [address] END OF REPORT
[2019-12-22 20:30] VITALS: BP 141/50
--- NOTE | 2019-12-22 22:54 | NUR ---
INITIAL ROUNDS COMPLETED AT 1920 HRS. NO DISTRESS NOTED. ASSESSMENT COMPLETED AT 2015 HRS. VSS. O2 4LNC. ALERT AND ORIENTED TO PERSON, PLACE AND TIME. BOSCH. IV TO RFA SL. LUNGS DIMINISHED IN BASES BILAT. 2+ PITTING EDEMA TO FEET. DRESSING TO LOWER L LEG CLEAN,DRY AND INTACT. PM FSBS 338. 12 UBITS REG INSULIN GIVEN SUB-Q PE S/S. PM MEDS GIVEN. PM SNACK SERVED. PT CURRENTLY SITTING IN THE RECLINER. CALL LIGHT WITHIN REACH.
--- NOTE | 2019-12-23 00:37 | NUR ---
PT AWAKE IN RECLINER. NO DISTRESS NOTED. CALL LIGHT WITHIN REACH.
[2019-12-23 00:45] VITALS: BP 110/56
--- NOTE | 2019-12-23 02:16 | NUR ---
PT AWAKE SITTING IN RECLINER. DENIES ANY DISCOMFORT. CALL LIGHT WITHIN REACH.
--- NOTE | 2019-12-23 03:40 | NUR ---
PT AWAKE; DENIES ANY DISCOMFORT. CALL LIGHT WITHIN REACH.
[2019-12-23 04:30] VITALS: BP 166/65
[2019-12-23 06:34] LABS: BASOPHILS 0 % (0-2); EOSINOPHILS 0.2 % (0-7); HEMATOCRIT 29.2 % (36.0-48.0); HEMOGLOBIN 9.2 g/dL (12-16); IMMATURE GRANULOCYTES 1.5 % (0-5); LYMPHOCYTES 4.1 % (15-50); MCH 30.7 pg (26.0-34.0); MCHC 31.5 g/dL (31.0-37.0); MEAN PLATELET VOLUME 11.6 fL (7.4-10.4); MONOCYTES 8.6 % (2-11); NEUTROPHILS 85.6 % (40-80); PLATELET COUNT 160 10x3/uL (130-400); RDW 16.8 % (11.5-14.5)
--- NOTE | 2019-12-23 06:39 | NUR ---
VSS THROUGHOUT NIGHT. PT DENIED ANY DISCOMFORT. AM FSBS 155. 4 UNITS REG INSULIN GIVEN SUB-Q TO UPPER R ARM. NEEDS MET; WILL CONTINUE TO MONITOR.
[2019-12-23 06:52] LABS: MCV 97.3 fL (80.0-100.0)
[2019-12-23 06:53] LABS: ANION GAP 8.1 mmol/L (8-16); CALCIUM 8.2 mg/dL (8.5-10.1); CARBON DIOXIDE 30.2 mmol/L (21.0-32.0); CREATININE - SERUM 1.3 mg/dL (0.6-1.3); POTASSIUM - SERUM 4.3 mmol/L (3.5-5.1)
--- NOTE | 2019-12-23 07:05 | NUR ---
RECEIVED REPORT, ASSUMED CARE, A&O, UP IN CHAIR SLEEPING, CALL LIGHT IN REACH, FEET ELEVATED ON BED, BREATHING EVEN UNLABORED, NO S/S OF DISTRESS NOTED, WILL CONTINUE POC
[2019-12-23 08:04] VITALS: BP 145/65
[2019-12-23 12:15] VITALS: BP 135/45
[2019-12-23 17:42] VITALS: BP 129/60
--- NOTE | 2019-12-23 19:36 | NUR ---
RECIEVED UP IN CHAIR TALKING ON TELEPHONE. ALERT AND ORIENTED X4. UP AD DEVEN. O2@ 4 LITERS PER N/C. IV TO LT FA SL. GENERALIZED EDEMA TO LOWER EXTREMITIES. C/O CONSTPATION. NEW ORDER FOR LACTULOSE. NO RESULS AT THIS TIME.
[2019-12-23 20:00] VITALS: BP 134/57
[2019-12-24] VITALS: BP 130/55
[2019-12-24 04:00] VITALS: BP 159/73
--- NOTE | 2019-12-24 04:38 | NUR ---
SITTIG UP IN CHAIR ANDREQUESTED COFFEE. COFFEE GIVEN. ALERT AND ORIENTED. STATED " I SLEPT BETTER LAST NIGHT THAT I HAVE IN A LONG TIME". DENIES ANY NEEDS AT THIS TIME.
[2019-12-24 08:16] VITALS: BP 140/54
[2019-12-24 12:57] VITALS: BP 140/54
[2019-12-24 17:15] VITALS: BP 116/58
--- NOTE | 2019-12-24 19:21 | NUR ---
RECIEVED UP IN CHAIR. ALERT AND ORIENTED X4. PLEASANT AND COOPERATIVE. o2@ 4 LITERS PER N/C. IV TO LT FA SL. DENIES ANY NEEDS AT THIS TIME.
[2019-12-24 20:00] VITALS: BP 132/63
[2019-12-25 04:00] VITALS: BP 118/84
[2019-12-25 06:47] LABS: CREATININE - SERUM 1.6 mg/dL (0.6-1.3); VANCOMYCIN - RANDOM 22.8 ug/mL (10.0-20.0)
--- NOTE | 2019-12-25 08:12 | NUR ---
AM MEDS GIVEN AT THIS TIME. ALSO GAVE ULTRAM FOR PAIN LEVEL OF 6/10. PT UP TO SIDE OF BED, EATING BREAKFAST, DENIES ANY NEEDS AT THIS TIME. CALL LIGHT IN REACH, NAD NOTED, WILL CONTINUE TO MONITOR.
--- NOTE | 2019-12-25 10:57 | NUR ---
BLOOD SUGAR OF 289, 10UNITS GIVEN PER S/S. PT UP TO CHAIR, DENIES ANY NEEDS AT THIS TIME.
[2019-12-25 11:35] VITALS: BP 112/54
[2019-12-25 14:47] VITALS: BP 135/69
--- NOTE | 2019-12-25 14:49 | NUR ---
PT STATED THAT SUPPOSITORY DID NOT WORK, WANTS TO GET AN ENEMA. CALLED AND SPOKE WITH MIREYA Silva APN, OK TO GIVE PT AN ENEMA.
--- NOTE | 2019-12-25 15:51 | MORECARE ---
CASE MANAGEMENT DISCHARGE SUMMARY PATIENT: KEITH ULOLA UNIT: [id number] ADM DATE: 12/09/19 AGE: 74 : 46 SEX: F ROOM/BED: D.8163 AUTHOR: MERRILL,DOC PHYSICIAN: REFERRING PHYSICIAN: MIRTA BERGMAN MD DATE OF SERVICE: 12/25/19 Discharge Plan Patient Name: KEITH ULLOA Facility: [facility]:[place] : 1945 Planned Disposition: Home Health Service Anticipated Discharge Date: 12/18/19 Discharge Date: Expected LOS: 9 Initial Reviewer: [id number] Initial Review Date: 12/09/2019 Generated: 12/25/19 4:50 pm Comments DCP- Discharge Planning Updated by [id number]: Rebecca Saab on 12/25/19 2:[address] Suzette, with [facility] called to verify that they are in network with the patient and will begin care upon DC. DCP- Discharge Planning Updated by [email or web address]: Rebecca Saab on 12/22/19 5:[address] Venegas of the [facility] situation. He states the patient is not ready to DC as yet. CM contacted Susan, with [facility] [phone], regarding [facility] for patient. Per Susan, the patient's insurance will require prior-authorization, prior to accepting. CM faxed the required information to [phone]. Patient will not be able to be seen by [facility] on Wednesday, if she is discharged over the weekend. [facility] will be pending prior-authorization with insurance. CB from Shabana Greg, [facility], who said they have a nursing shortage at this time and will be unable to take this payment (commercial insurance). CM will contact another [facility]. GAMAL contacted Rosa, with [employer] [phone], regarding medical equipment and was advised that the medical equipment has been delivered to the home. Contacted [facility] [phone], spoke with Ofelia regarding possible DC home this weekend. GAMAL spoke to Ofelia, regarding [facility] and she said that the person who took the information is no longer with the company. Ofelia states she is not aware of the patient and will check on staffing. Await CB. DCP- Discharge Planning Updated by [id number]: Rebecca Saab on 12/18/19 10:[address] 11:45: Per Dr. shoemaker, the patient needs another day, due to hemoptysis and titrating IV Steroids. CM notified patient's daughter, Tamera of same. CM contacted Carine with [facility], regarding patient's delay in DC. Additional information faxed per request. 0910: Per request of Izabela, with [employer], patient will require a walk test for portability and since the patient is on 5L, she will require the walk portion to be on 4L. CM faxed DC summary and Pulmonary progress note to Carmina with [facility]. DCP- Discharge Planning Updated by [id number]: Rebecca Saab on 12/15/19 12:[address] DC Plan: CM contacted Mary with [facility] with orders for a hospital bed, RW, Nebulizer, portable O2. Contacted [facility], spoke with Petra, faxed information for O/A, PT services. Patient will require a RA sat prior to DC, in order to qualify for a portable O2 tank. CM met with patient to discuss initial discharge planning. Patient is in agreement to proceed with the assessment. Patient reports that she lives at home partially independent with her daughter, Tamera Ulloa ([phone]). Patient is alert/oriented. Stairs/steps: PCP: Siria Fuentes APRN w/Dr. Buchanan. [facility]acy[facility]. Patient states she has been able to obtain all of her prescribed medications. HHS: Request, CM will set up. DME: Home O2, shower chair, glucometer, [employer]. Patient gives permission to speak with family members/care givers. Patient is Independent with all ADL's, medication management COAL TRIMMER. CM discussed the availability of HH, Rehab, SNF, OP Therapy, DME services. Patient's daughter, Tamera, request HHS, hospital bed, portable O2, Nebulizer, HHS and feels safe returning to previous environment. Patient denies hospitalization within the past 30 days. Patient denies the use of community resources COAL TRIMMER. Transportation at time of discharge: Tamera Ulloa. CM will assist PRN with DC needs/plans. DCPIA - Discharge Planning Initial Assessment Updated by [id number]: Rebecca Saab on 12/15/19 12:11 pm * Is the patient Alert and Oriented? Yes * PCP Siria Fuentes APRN w/Dr. Buchanan * Pharmacy [facility] * Preadmission Environment Home with Family * ADLs Partial Dependent * Partial ADLs (Assistance needed) Bathing Dressing Medication Management * Equipment Glucometer Shower Chair * Other Equipment Order for Portable O2, Hospital bed, nebulizer, walker from [employer] Has: ome O2, Shower bench * List name and contact numbers for known caregivers / representatives who currently or will assist patient after discharge: Tamera Ulloa (dtr) [phone] * Verbal permission to speak to the caregivers and representatives has been obtained from the patient. Yes * Community resources currently utilized Home Health Private Duty Care * Please name any agencies selected above. [employer]" caregiver * Additional services required to return to the preadmission environment? Yes * Can the patient safely return to the preadmission environment? Yes * Has this patient been hospitalized within the prior 30 days at any hospital? No Coverage Notice Reviewer: [id number] Florencia Rebecca Kaiser Notice Issued Date-Time: 12/15/2019 12:13 Notice Type: Patient Choice Letter Notice Delivered To: Patient Relationship to Patient: Self Spar Cap Beveler Name: Keith Ulloa Delivery Method: HAND - Hand Delivered Whitney Days: Prior Verbal Notification: Recipient Understood Notice: Yes Recipient Signature: Yes Med Rec Note Co-signed by Attending: Coverage Notice Comment: Patient choice for [facility] and [facility] Reviewer: [id number] - Rebecca Kaiser Notice Issued Date-Time: 12/15/2019 12:13 Notice Type: IM Discharge Notice Notice Delivered To: Patient Relationship to Patient: Self Spar Cap Beveler Name: Keith Ulloa Delivery Method: HAND - Hand Delivered Whitney Days: Prior Verbal Notification: Recipient Understood Notice: Yes Recipient Signature: Yes Med Rec Note Co-signed by Attending: Coverage Notice Comment: DC IMM signed/given to patient. Last DP export: 12/22/19 5:25 pm Patient Name: KEITH ULLOA Page [phone] at 1551 All edits/amendments must be made on the electronic document DICTATION DATE: 12/25/19 1551 UNDERWRITING SERVICE REPRESENTATIVE: SIMON 12/25/19 1551 RPT#: [id number] DC DATE: STATUS: ADM IN [facility] [address] [place] [address] END OF REPORT
--- NOTE | 2019-12-25 17:42 | NUR ---
GAVE 50MG OF ULTRAM FOR PAIN LEVEL OF 8/10. X2 ENEMAS GIVEN AND STILL NO RESULTS. PT UP TO CHAIR, DENIES ANY OTHER NEEDS AT THIS TIME. CALL LIGHT IN REACH.
--- NOTE | 2019-12-25 19:00 | NUR ---
EVENING ROUNDS COMPLETE. PT SITTING UP IN CHAIR. NO SIGNS OF DISTRESS. PT DENIES ANY PAIN OR NEEDS AT THIS TIME. CL IN REACH, BED IN LOWEST POSITION. [id number].
[2019-12-25 20:00] VITALS: BP 132/53
--- NOTE | 2019-12-25 21:59 | NUR ---
OT NOTE: (AM) PT COMPLETED UB HYGIENE TASKS WITH SETUP WHILE SEATED IN CHAIR. PT STATED SHE HAS TO GIVE STOOL SAMPLE BEFORE D/C. (PM) PT STATED SHE HAS BEEN ATTEMPTING A BM BUT UNSUCCESSFUL. PT COMPLETED SIT TO STAND WITH SPV. PT COMPLETED STANDING BALANCE WITH SPV. PT COMPLETED TOILET HYGIENE WITH SPV. [phone] THANK YOU, MATT SERRANO
[2019-12-26 04:00] VITALS: BP 133/58
[2019-12-26 05:53] LABS: BASOPHILS 0 % (0-2); EOSINOPHILS 0.2 % (0-7); HEMATOCRIT 29.6 % (36.0-48.0); HEMOGLOBIN 9.6 g/dL (12-16); LYMPHOCYTES 7.1 % (15-50); MCHC 32.4 g/dL (31.0-37.0); MCV 95.5 fL (80.0-100.0); MONOCYTES 6.8 % (2-11); NEUTROPHILS 84.9 % (40-80); PLATELET COUNT 133 10x3/uL (130-400); RDW 16.5 % (11.5-14.5); WBC 8.2 10x3/uL (4.8-10.8)
[2019-12-26 06:10] LABS: ANION GAP 6.9 mmol/L (8-16); CALCIUM 8.4 mg/dL (8.5-10.1); CARBON DIOXIDE 32.1 mmol/L (21.0-32.0); CREATININE - SERUM 1.6 mg/dL (0.6-1.3)
[2019-12-26 07:58] VITALS: BP 131/54
[2019-12-26 11:40] VITALS: BP 113/50
--- NOTE | 2019-12-26 13:53 | NUR ---
Nutrition Follow-up: Did not eat breakfast this AM 2/ constipation. States that she is going to just have liquids until she has a BM; last BM was 12/18. Receiving Lactulose BID and Metamucil QD. Diet: Diabetic PO intake: 92% avg x 9 meals (12/22-12/24); 0% this AM Wt: 176# (12/25) Labs noted: Na 130, Glu 156, Ca 8.4 Meds noted: Lactulose, Metamucil, Humulin, Prednisone, Nystatin, HCTZ -Encourage PO intake and honor food preferences within diet restrictions. -Monitor wt. -RD following.
[2019-12-26 15:21] VITALS: BP 89/50
--- NOTE | 2019-12-26 16:19 | NUR ---
OT NOTE: PT COMPLETED SITTING BALANCE WITH FUNCTIONAL TASKS REQUIRED SUPV. PT COMPLETED SIT TO STAND WITH SBA. PT COMPLETED FACE HYGIENE WITH SETUP. [phone] THANK YOU,MATT SERRANO
--- NOTE | 2019-12-26 19:10 | NUR ---
ROUNDING REPORT DONE AND SEBVERAL NEEDS SEEN TOO PT UP TO CHAIR WITH WITH CALL LIGHT IN REACH BED IS LOW AND LOCKED
[2019-12-26 21:41] VITALS: BP 122/45
[2019-12-27 04:00] VITALS: BP 137/58
[2019-12-27 06:20] LABS: ANION GAP 9.1 mmol/L (8-16); CALCIUM 8.7 mg/dL (8.5-10.1); CARBON DIOXIDE 29.7 mmol/L (21.0-32.0); CREATININE - SERUM 1.3 mg/dL (0.6-1.3); POTASSIUM - SERUM 4.8 mmol/L (3.5-5.1)
[2019-12-27 06:50] LABS: BASOPHILS 0 % (0-2); EOSINOPHILS 0 % (0-7); HEMOGLOBIN 11.3 g/dL (12-16); IMMATURE GRANULOCYTES 0.6 % (0-5); LYMPHOCYTES 2.6 % (15-50); MCH 30.9 pg (26.0-34.0); MCHC 32.3 g/dL (31.0-37.0); MCV 95.6 fL (80.0-100.0); MEAN PLATELET VOLUME 11.4 fL (7.4-10.4); MONOCYTES 4.6 % (2-11); NEUTROPHILS 92.2 % (40-80); RBC 3.66 10x6/uL (4.00-5.40); RDW 16.5 % (11.5-14.5); WBC 6.2 10x3/uL (4.8-10.8)
[2019-12-27 06:55] LABS: PLATELET COUNT 101 10x3/uL (130-400)
[2019-12-27] MEDS ORDERED: SINGULAIR10 MG PO (09:12)
--- NOTE | 2019-12-27 10:11 | MORECARE ---
CASE MANAGEMENT DISCHARGE SUMMARY PATIENT: KEITH ULLOA UNIT: [id number] ADM DATE: 12/09/19 AGE: 74 : 46 SEX: F ROOM/BED: D.9993 AUTHOR: MERRILL,DOC PHYSICIAN: REFERRING PHYSICIAN: MIRTA BERGMAN MD DATE OF SERVICE: 12/27/19 Discharge Plan Patient Name: KEITH ULLOA Facility: [facility]:[place] : 1945 Planned Disposition: Home Health Service Anticipated Discharge Date: 12/18/19 Discharge Date: Expected LOS: 9 Initial Reviewer: [email or web address] Initial Review Date: 12/09/2019 Generated: 12/27/19 11:11 am Comments DCP- Discharge Planning Updated by [email or web address]: Rebecca Saab on 12/27/19 9:[address] faxed DC summary and resumption of [facility] to [place]. DCP- Discharge Planning Updated by [id number]: Rebecca Saab on 12/25/19 2:[address] Suzette, with [facility] called to verify that they are in network with the patient and will begin care upon DC. DCP- Discharge Planning Updated by [email or web address]: Rebecca Saab on 12/22/19 5:[address] Venegas of the [facility] situation. He states the patient is not ready to DC as yet. GAMAL contacted Susan, with [facility] [phone], regarding [facility] for patient. Per Susan, the patient's insurance will require prior-authorization, prior to accepting. CM faxed the required information to [phone]. Patient will not be able to be seen by [facility] on Wednesday, if she is discharged over the weekend. [facility] will be pending prior-authorization with insurance. CB from Shabana Garza, [facility], who said they have a nursing shortage at this time and will be unable to take this payment (commercial insurance). CM will contact another [facility]. GAMAL contacted Rosa, with [employer] [phone], regarding medical equipment and was advised that the medical equipment has been delivered to the home. Contacted [facility] [phone], spoke with Ofelia regarding possible DC home this weekend. CM spoke to Ofelia, regarding HHS and she said that the person who took the information is no longer with the [employer]. Ofelia states she is not aware of the patient and will check on staffing. Await CB. DCP- Discharge Planning Updated by [email or web address]: Rebecca Lulroy on 12/18/19 10:[address] 11:45: Per Dr. shoemaker, the patient needs another day, due to hemoptysis and titrating IV Steroids. CM notified patient's daughter, Tamera of same. CM contacted Carine with [facility], regarding patient's delay in DC. Additional information faxed per request. 0910: Per request of Izabela, with [employer], patient will require a walk test for portability and since the patient is on 5L, she will require the walk portion to be on 4L. CM faxed DC summary and Pulmonary progress note to Carmina with [facility]. DCP- Discharge Planning Updated by [id number]: Rebecca Kaiser on 12/15/19 12:[address] DC Plan: CM contacted Mary with [facility] with orders for a hospital bed, RW, Nebulizer, portable O2. Contacted [facility], spoke with Petra, faxed information for O/A, PT services. Patient will require a RA sat prior to DC, in order to qualify for a portable O2 tank. CM met with patient to discuss initial discharge planning. Patient is in agreement to proceed with the assessment. Patient reports that she lives at home partially independent with her daughter, Tamera Ulloa ([phone]). Patient is alert/oriented. Stairs/steps: PCP: kayce Knight APRN/Dr. Buchanan. [facility]acy[facility]. Patient states she has been able to obtain all of her prescribed medications. HHS: Request, CM will set up. DME: Home O2, shower chair, glucometer, [employer]. Patient gives permission to speak with family members/care givers. Patient is Independent with all ADL's, medication management FLARE BREAKER. CM discussed the availability of HH, Rehab, SNF, OP Therapy, DME services. Patient's daughter, Tamera, request HHS, hospital bed, portable O2, Nebulizer, HHS and feels safe returning to previous environment. Patient denies hospitalization within the past 30 days. Patient denies the use of community resources FLARE BREAKER. Transportation at time of discharge: Tamera Ulloa. CM will assist PRN with DC needs/plans. DCPIA - Discharge Planning Initial Assessment Updated by [email or web address]: Rebecca Saab on 12/15/19 12:11 pm * Is the patient Alert and Oriented? Yes * PCP Siria Fuentes APRN w/Dr. Buchanan * Pharmacy [facility] * Preadmission Environment Home with Family * ADLs Partial Dependent * Partial ADLs (Assistance needed) Bathing Dressing Medication Management * Equipment Glucometer Shower Chair * Other Equipment Order for Portable O2, Hospital bed, nebulizer, walker from [facility] Has: ome O2, Shower bench * List name and contact numbers for known caregivers / representatives who currently or will assist patient after discharge: Tamera Ulloa (dtr) [phone] * Verbal permission to speak to the caregivers and representatives has been obtained from the patient. Yes * Community resources currently utilized Home Health Private Duty Care * Please name any agencies selected above. [employer]" caregiver * Additional services required to return to the preadmission environment? Yes * Can the patient safely return to the preadmission environment? Yes * Has this patient been hospitalized within the prior 30 days at any hospital? No Coverage Notice Reviewer: [id number] Florencia Saab Notice Issued Date-Time: 12/15/2019 12:13 Notice Type: Patient Choice Letter Notice Delivered To: Patient Relationship to Patient: Self Site Monitor Name: Keith Ulloa Delivery Method: HAND - Hand Delivered Whitney Days: Prior Verbal Notification: Recipient Understood Notice: Yes Recipient Signature: Yes Med Rec Note Co-signed by Attending: Coverage Notice Comment: [facility] for [facility] Reviewer: [id number] Florencia Saab Notice Issued Date-Time: 12/15/2019 12:13 Notice Type: IM Discharge Notice Notice Delivered To: Patient Relationship to Patient: Self Site Monitor Name: Keith Ulloa Delivery Method: HAND - Hand Delivered Whitney Days: Prior Verbal Notification: Recipient Understood Notice: Yes Recipient Signature: Yes Med Rec Note Co-signed by Attending: Coverage Notice Comment: DC IMM signed/given to patient. Last DP export: 12/25/19 2:51 p Patient Name: KEITH ULLOA Page 47799 at 1011 All edits/amendments must be made on the electronic document DICTATION DATE: 12/27/19 1011 SCRATCH BRUSHER: SIMON 12/27/19 1011 RPT#: [id number] DC DATE: STATUS: ADM IN [facility] [address] [place] [address] END OF REPORT
[2019-12-27 11:25] VITALS: BP 152/46
--- NOTE | 2019-12-27 11:25 | NUR ---
IV DCD. DC PLANS GIVEN. UNDERSTANDING VOICED. ESCORTED TO CAR BY W/C.
--- NOTE | 2019-12-27 21:08 | NUR ---
OT NOTE: PT COMPLETED SIT TO STAND WITH SPV. PT COMPLETED ADL MOB WITH NO AD WITH SPV. PT COMPLETED HYGIENE TASKS WHILE STANDING AT SINK WITH SPV. PT STATED BACK PAIN HAS DECREASED. PT STATED SHE IS SET TO D/C TODAY. PT COMPLETED BUE AROM AXS WITH FUNCTIONAL TASKS WITH NO C/O PAIN. [phone] THANK YOU,MATT SERRANO
--- NOTE | 2019-12-27 21:16 | MORECARE ---
CASE MANAGEMENT DISCHARGE SUMMARY PATIENT: KEITH ULLOA UNIT: [id number] ADM DATE: 12/09/19 AGE: 74 : 47 SEX: F ROOM/BED: D.7493 AUTHOR: MERRILL,DOC PHYSICIAN: REFERRING PHYSICIAN: MIRTA BERGMAN MD DATE OF SERVICE: 12/27/19 Discharge Plan Patient Name: KEITH ULLOA Facility: [facility]:[place] : 1945 Planned Disposition: Home Health Service Anticipated Discharge Date: 12/18/19 Discharge Date: 12/27/2019 Expected LOS: 9 Initial Reviewer: TRISTAN Initial Review Date: 12/09/2019 Generated: 12/27/19 10:16 pm Comments DCP- Discharge Planning Updated by [email or web address]: Rebecca Saab on 12/27/19 9:[address] faxed DC summary and resumption of [facility] to [place]. DCP- Discharge Planning Updated by [id number]: Rebecca Saab on 12/25/19 2:[address] Suzette, with [facility] called to verify that they are in network with the patient and will begin care upon DC. DCP- Discharge Planning Updated by [email or web address]: Rebecca Saab on 12/22/19 5:[address] Venegas of the [facility] situation. He states the patient is not ready to DC as yet. GAMAL contacted Susan, with [facility] [phone], regarding [facility] for patient. Per Susan, the patient's insurance will require prior-authorization, prior to accepting. CM faxed the required information to [phone]. Patient will not be able to be seen by [facility] on Wednesday, if she is discharged over the weekend. [facility] will be pending prior-authorization with insurance. CB from Shabana Garza, [facility], who said they have a nursing shortage at this time and will be unable to take this payment (commercial insurance). CM will contact another [facility]. GAMAL contacted Rosa, with [employer] [phone], regarding medical equipment and was advised that the medical equipment has been delivered to the home. Contacted [facility] [phone], spoke with Ofelia regarding possible DC home this weekend. CM spoke to Ofelia, regarding HHS and she said that the person who took the information is no longer with the company. Ofelia states she is not aware of the patient and will check on staffing. Await CB. DCP- Discharge Planning Updated by [email or web address]: Rebecca Lulroy on 12/18/19 10:[address] 11:45: Per Dr. shoemaker, the patient needs another day, due to hemoptysis and titrating IV Steroids. CM notified patient's daughter, Tamera of same. CM contacted Carine with [facility], regarding patient's delay in DC. Additional information faxed per request. 0910: Per request of Izabela, with [facility], patient will require a walk test for portability and since the patient is on 5L, she will require the walk portion to be on 4L. CM faxed DC summary and Pulmonary progress note to Carmina with [facility]. DCP- Discharge Planning Updated by [id number]: Rebecca Kaiser on 12/15/19 12:[address] DC Plan: CM contacted Mary with [facility] with orders for a hospital bed, RW, Nebulizer, portable O2. Contacted [facility], spoke with Petra, faxed information for O/A, PT services. Patient will require a RA sat prior to DC, in order to qualify for a portable O2 tank. CM met with patient to discuss initial discharge planning. Patient is in agreement to proceed with the assessment. Patient reports that she lives at home partially independent with her daughter, Tamera Ulloa ([phone]). Patient is alert/oriented. Stairs/steps: PCP: kayce Knight APRN/Dr. Buchanan. [facility]. Patient states she has been able to obtain all of her prescribed medications. HHS: Request, CM will set up. DME: Home O2, shower chair, glucometer, [employer]. Patient gives permission to speak with family members/care givers. Patient is Independent with all ADL's, medication management [employer]. CM discussed the availability of HH, Rehab, SNF, OP Therapy, DME services. Patient's daughter, Tamera, request HHS, hospital bed, portable O2, Nebulizer, HHS and feels safe returning to previous environment. Patient denies hospitalization within the past 30 days. Patient denies the use of community resources [employer]. Transportation at time of discharge: Tamera Ulloa. CM will assist PRN with DC needs/plans. DCPIA - Discharge Planning Initial Assessment Updated by [id number]: Rebecca Saab on 12/15/19 12:11 pm * Is the patient Alert and Oriented? Yes * PCP Siria Fuentes APRN w/Dr. Buchanan * Pharmacy [facility] * Preadmission Environment Home with Family * ADLs Partial Dependent * Partial ADLs (Assistance needed) Bathing Dressing Medication Management * Equipment Glucometer Shower Chair * Other Equipment Order for Portable O2, Hospital bed, nebulizer, walker from [employer] Has: ome O2, Shower bench * List name and contact numbers for known caregivers / representatives who currently or will assist patient after discharge: Tamera Ulloa (dtr) [phone] * Verbal permission to speak to the caregivers and representatives has been obtained from the patient. Yes * Community resources currently utilized Home Health Private Duty Care * Please name any agencies selected above. [employer]" caregiver * Additional services required to return to the preadmission environment? Yes * Can the patient safely return to the preadmission environment? Yes * Has this patient been hospitalized within the prior 30 days at any hospital? No Coverage Notice Reviewer: [id number] Florencia Saab Notice Issued Date-Time: 12/15/2019 12:13 Notice Type: Patient Choice Letter Notice Delivered To: Patient Relationship to Patient: Self Sourcing Assistant Name: Keith Ulloa Delivery Method: HAND - Hand Delivered Whitney Days: Prior Verbal Notification: Recipient Understood Notice: Yes Recipient Signature: Yes Med Rec Note Co-signed by Attending: Coverage Notice Comment: Patient choice for [facility] Reviewer: [email or web address] Florencia Saab Notice Issued Date-Time: 12/15/2019 12:13 Notice Type: IM Discharge Notice Notice Delivered To: Patient Relationship to Patient: Self Sourcing Assistant Name: Keith Ulloa Delivery Method: HAND - Hand Delivered Whitney Days: Prior Verbal Notification: Recipient Understood Notice: Yes Recipient Signature: Yes Med Rec Note Co-signed by Attending: Coverage Notice Comment: DC IMM signed/given to patient. Last DP export: 12/27/19 9:12 a Patient Name: KEITH ULLOA Page [id number] at 2116 All edits/amendments must be made on the electronic document DICTATION DATE: 12/27/192115 INTERMODAL OWNER OPERATOR TRUCK DRIVER: SIMON 12/27/192115 RPT#: [id number] DC DATE:12/27/19 STATUS: DIS IN [facility] [address] [place] [address] END OF REPORT
--- NOTE | 2019-12-28 13:09 | MORECARE ---
CASE MANAGEMENT DISCHARGE SUMMARY PATIENT: KEITH ULLOA UNIT: [id number] ADM DATE: 12/09/19 AGE: 74 : 47 SEX: F ROOM/BED: D.2113 AUTHOR: MERRILL,DOC PHYSICIAN: REFERRING PHYSICIAN: MIRTA BERGMAN MD DATE OF SERVICE: 12/28/19 Discharge Plan Patient Name: KEITH ULLOA Facility: [facility]:[place] : 1945 Planned Disposition: Home Health Service Anticipated Discharge Date: 12/18/19 Discharge Date: 12/27/2019 Expected LOS: 9 Initial Reviewer: TRISTAN Initial Review Date: 12/09/2019 Generated: 12/28/19 2:08 pm Comments DCP- Discharge Planning Updated by [email or web address]: Rebecca Saab on 12/28/19 12:[address] Contacted Faye with [facility], who states a nurse is going out to see patient today. DC med request has been faxed. DCP- Discharge Planning Updated by [email or web address]: Rebecca Saab on 12/27/19 9:[address] faxed DC summary and resumption of [facility]HS to [place]. DCP- Discharge Planning Updated by [email or web address]: Rebecca Saab on 12/25/19 2:[address] Suzette, with [facility] called to verify that they are in network with the patient and will begin care upon DC. DCP- Discharge Planning Updated by [id number]: Rebecca Saab on 12/22/19 5:[address] [facility] situation. He states the patient is not ready to DC as yet. GAMAL contacted Susan, with [facility] [phone], regarding [facility] for [facility]. Per Susan, the patient's insurance will require prior-authorization, prior to accepting. CM faxed the required information to [phone]. Patient will not be able to be seen by [facility] on Wednesday, if she is discharged over the weekend. [facility] will be pending prior-authorization with insurance. CB from [facility], who said they have a nursing shortage at this time and will be unable to take this payment (commercial insurance). CM will contact another [facility]. CM contacted Rosa, with [employer] [phone], regarding medical equipment and was advised that the medical equipment has been delivered to the home. Contacted [facility] [phone], spoke with Ofelia regarding possible DC home this weekend. CM spoke to Ofelia, regarding [facility] and she said that the person who took the information is no longer with the company. Ofelia states she is not aware of the patient and will check on staffing. Await CB. DCP- Discharge Planning Updated by [email or web address]: Rebecca Saab on 12/18/19 10:[address] 11:45: Per Dr. shoemaker, the patient needs another day, due to hemoptysis and titrating IV Steroids. CM notified patient's daughter, Tamera of same. CM contacted Carine with [facility], regarding patient's delay in DC. Additional information faxed per request. 0910: Per request of Izabela, with [facility], patient will require a walk test for portability and since the patient is on 5L, she will require the walk portion to be on 4L. CM faxed DC summary and Pulmonary progress note to Carmina with [facility]. DCP- Discharge Planning Updated by [id number]: Rebecca Saab on 12/15/19 12:[address] DC Plan: CM contacted Mary with [facility] with orders for a hospital bed, RW, Nebulizer, portable O2. Contacted [facility], spoke with Petra, faxed information for O/A, PT services. Patient will require a RA sat prior to DC, in order to qualify for a portable O2 tank. CM met with patient to discuss initial discharge planning. Patient is in agreement to proceed with the assessment. Patient reports that she lives at home partially independent with her daughter, Tamera Ulloa ([phone]). Patient is alert/oriented. Stairs/steps: PCP: kayce Knight APRN/Dr. Buchanan. [facility]acy[facility]. Patient states she has been able to obtain all of her prescribed medications. HHS: Request, CM will set up. DME: Home O2, shower chair, glucometer, [employer]. Patient gives permission to speak with family members/care givers. Patient is Independent with all ADL's, medication management [employer]. CM discussed the availability of HH, Rehab, SNF, OP Therapy, DME services. Patient's daughter, Tamera, request HHS, hospital bed, portable O2, Nebulizer, HHS and feels safe returning to previous environment. Patient denies hospitalization within the past 30 days. Patient denies the use of community resources [employer]. Transportation at time of discharge: Tamera Ulloa. CM will assist PRN with DC needs/plans. DCPIA - Discharge Planning Initial Assessment Updated by [id number]: Rebecca Saab on 12/15/19 12:11 pm * Is the patient Alert and Oriented? Yes * PCP Siria Fuentes APRN w/Dr. Buchanan * Pharmacy [facility] * Preadmission Environment Home with Family * ADLs Partial Dependent * Partial ADLs (Assistance needed) Bathing Dressing Medication Management * Equipment Glucometer Shower Chair * Other Equipment Order for Portable O2, Hospital bed, nebulizer, walker from [employer] Has: ome O2, Shower bench * List name and contact numbers for known caregivers / representatives who currently or will assist patient after discharge: Tamera Ulloa (dtr) [phone] * Verbal permission to speak to the caregivers and representatives has been obtained from the patient. Yes * Community resources currently utilized Home Health Private Duty Care * Please name any agencies selected above. [employer]" caregiver * Additional services required to return to the preadmission environment? Yes * Can the patient safely return to the preadmission environment? Yes * Has this patient been hospitalized within the prior 30 days at any hospital? No Coverage Notice Reviewer: [id number] Florencia Saab Notice Issued Date-Time: 12/15/2019 12:13 Notice Type: Patient Choice Letter Notice Delivered To: Patient Relationship to Patient: Self Hydroelectric Production Technician Name: Keith Ulloa Delivery Method: HAND - Hand Delivered Whitney Days: Prior Verbal Notification: Recipient Understood Notice: Yes Recipient Signature: Yes Med Rec Note Co-signed by Attending: Coverage Notice Comment: Patient choice for [facility] Reviewer: [email or web address] Florencia Saab Notice Issued Date-Time: 12/15/2019 12:13 Notice Type: IM Discharge Notice Notice Delivered To: Patient Relationship to Patient: Self Hydroelectric Production Technician Name: Keith Ulloa Delivery Method: HAND - Hand Delivered Whitney Days: Prior Verbal Notification: Recipient Understood Notice: Yes Recipient Signature: Yes Med Rec Note Co-signed by Attending: Coverage Notice Comment: DC IMM signed/given to patient. Last DP export: 12/27/19 8:16 p Patient Name: KEITH ULLOA Page [phone] at 1309 All edits/amendments must be made on the electronic document DICTATION DATE: 12/28/19 1309 SWATCH CLERK: SIMON 12/28/19 1309 RPT#: [id number] DC DATE:12/27/19 STATUS: DIS IN [facility] [address] [place] [address] END OF REPORT
== END 2019-12-27 11:26 | disposition home or self-care (01) | DRG 193 ==
LOC: D.ER 21:43 → D.M2 12-09 00:31
PROVIDERS: Emergency Medicine; Family Medicine; Internal Medicine Pulmonary Disease; ADMIT Legal Medicine; ATTEND Legal Medicine
DX: J18.9 Pneumonia, unspecified organism (principal); J96.01 Acute respiratory failure with hypoxia; I50.31 Acute diastolic (congestive) heart failure; J44.0 Chronic obstructive pulmonary disease with (acute) lower respiratory infection; N17.9 Acute kidney failure, unspecified; R04.2 Hemoptysis; J44.1 Chronic obstructive pulmonary disease with (acute) exacerbation; I13.0 Hypertensive heart and chronic kidney disease with heart failure and stage 1 through stage 4 chronic kidney disease, or unspecified chronic kidney disease; I25.10 Atherosclerotic heart disease of native coronary artery without angina pectoris; D64.9 Anemia, unspecified; I48.91 Unspecified atrial fibrillation; E11.21 Type 2 diabetes mellitus with diabetic nephropathy; E78.5 Hyperlipidemia, unspecified; E11.22 Type 2 diabetes mellitus with diabetic chronic kidney disease; N18.9 Chronic kidney disease, unspecified; Z87.891 Personal history of nicotine dependence

== ENCOUNTER 2020-02-22 22:09 | Inpatient (IN) | payer MEDICARE, MEDICAID ==
[~2020-02-22] VITALS: Ht 165.1 cm; Wt 79.4 kg
--- NOTE | ~2020-02-22 | EC ---
PATIENT:JOHN COSME DATE OF SERVICE: 02/23/20 SEX: F MEDICAL RECORD: [id number] DATE OF : 47 LOCATION:D.M2 D.210 AGE OF PATIENT: 74 ADMISSION DATE: 02/23/20 REFERRING PHYSICIAN: INTERPRETING PHYSICIAN: NISHA MCCABE MD ECHOCARDIOGRAM REPORT ECHO CHARGES 5 ECHO LIMITED Date: 02/23/20 CLINICAL DIAGNOSIS: DYSPNEA ECHOCARDIOGRAPHIC MEASUREMENTS (adult normal given) AC root (d.<3.7cm) 00 cm LV Septum d (<1.2 cm> 0 cm Valve Excursion 0 cm LV Septum (systole) 0 cm Left Atria (s.<4.0cm> 0 cm LVPW d(<1.2cm) 0 cm RV (d.<2.3cm) 0 cm LVPW (sytole) 0 cm LV diastole(<5.6CM) 0 cm MV E-F(>70mm/sec) 0 cm LV systole 0 cm LVOT Diameter 0 cm MV exc.(>10mm) 0 cm Est.ejection fraction (50-75%) 0 % DOPPLER: LVIT cm/sec A 0 cm/sec E 0 cm/sec LA 0 cm/sec RVSP 50 mmHg LVOT 0 cm/sec AOP1/2T m/s Asc. Ao 0 cm/sec RVOT 0 cm/sec RA 0 cm/sec PA 0 cm/sec AV Gradient Peak 0 mmHg AV Mean 0 mmHg AV Area 00 cm MV Gradient Peak 0 mmHg MV Mean 0 mmHg MV Area cm COMMENTS: Behavioral Health Director: Jas SANTOS Hoop Maker Machine: 5 Dr. Mccabe TAPE# Pericardial Effusion N DATE OF SERVICE: CLINICAL INDICATION: Dyspnea. INTERPRETATION: Technically difficult limited study. Normal LV chamber size and contractile function with ejection fraction 55% to 60%. Right atrial and right ventricular chamber is not well visualized. Aortic valve appears normal. Mitral valve appears normal. No regurgitation. Tricuspid valve appears normal. Mild mitral regurgitation with estimated PA pressure of 50 mmHg suggest consistent with ofjr-oc-qnkwvenm pulmonary hypertension. Pulmonic valve not ECHOCARDIOGRAM REPORT [id number] JOHN COSME well visualized. No pericardial effusion visualized. IMPRESSION: 1. Technically difficult limited study. Overall, normal left ventricular contractile function, ejection fraction 55% to 60%. 2. Mild tricuspid regurgitation with estimated pulmonary artery pressure of 50 mmHg consistent with [id number]-nw-[id number] pulmonary hypertension. TRANSINT:[id number] Voice Confirmation ID: [id number] DOCUMENT ID: [id number] NISHA MCCABE MD CC: [id number] DICTATION DATE: 02/24/20 1246 LEGAL PARAPROFESSIONAL: 02/24/20 1543 ADM IN [facility] [address] [place] [address]
--- NOTE | ~2020-02-22 | HEMODYNAMI ---
PATIENT:JOHN COSME MEDICAL RECORD: [id number] : 47 LOCATION:[facility] D.210 ADMISSION DATE: 02/23/20 Generatedon:02/27/202015:44 Patient name: JOHN COSME Patient #: [id number] SSN: : 1945 Date of study: 02/27/2020 Page: Of Hemodynamic Procedure Report Patient Data Patient Demographics Procedure consent was obtained First Name: JOHN Gender: Female Last Name: BA : 1945 Patient #: [id number] Age: 74 year(s) Race: Unknown Additional ID: [id number] Contact details [address]: [address] [place] [address] State: [place] City: [place] Zip code: [address] Past Medical History Allergies: No known allergies Admission Admission Data Admission Date: 02/23/2020 Admission Time: 15:39 Room #: 2103 Height (in.): 64.96 BSA: 1.86 (m2) Height (cm.): 165 BMI: 29.02 (kg/m2) Weight (lbs.): 174.17 Weight (kg.): 79 Lab Results Lab Result Date: 02/27/2020 Lab Result Time: 0:00 Biochemistry Name Units Result Min Max BUN mg/dl 29 --(----)-* 7 18 Creatinine mg/dl 1.5 --(----)-* 0.6 1.3 eGFR ml/min 36 *-(----)-- 90 120 NONAFRICAN CBC Name Units Result Min Max Hematocrit % 35.5 *-(----)-- 42 54 Hemoglobin g/dl 10.9 *-(----)-- 13.5 17.5 Procedure Procedure Types Cath Procedure Diagnostic Procedure Right Heart Right Heart Cath Right Heart Pharmacology Study Sedation Charges Moderate Sedation up to 15 minutes Procedure Description Procedure Date Procedure Date: 02/27/2020 Procedure Start Time: 15:26 Procedure End Time: 15:40 Procedure Staff Name Function Guillermo Brandt MD Performing Physician Ya Lucas RT Scrub Denys Fernández RN Nurse Siria Carbajal RT Monitor Procedure Data Cath Procedure Fluoroscopy Diagnostic fluoroscopy Total fluoroscopy Time: 1.1 time: 1.1 min min Diagnostic fluoroscopy Total fluoroscopy dose: 65 dose: 65 mGy mGy Entry Location Entry Primary Successful Side Size Upsize Upsize Entry Closure Thomas ccessful Closure Location (Fr) 1 (Fr) 2 (Fr) Remarks Device Remarks Femoral Right 7 Fr Manual artery Short Compression Estimated blood loss: 5 ml Diagnostic catheters Device Type Used For End Catheter Placement SWAN 7Fr Thermodilution Right heart cath cather (131F7P) Procedure Complications No complications Procedure Medications Medication Administration Route Dosage Oxygen NC 2 l/min Heparin Flush Bag added to field 2 bags (1000units/500ml NS) 0.9% NaCl I.V. 100 ml/hr Lidocaine 2% added to field 20 Versed 1 mg Fentanyl I.V. 50 mcg Hemodynamics Rest BSA: 1.86 (m2) HGB: 10.9 (g/dl) O2 Consumption: Estimated: 180.95 (ml/min) O2 Co nsumption indexed: Estimated:97.28 (ml/min/m) Heart Rate: 85 (bpm) Pressure Samples Time Site Value (mmHg) Purpose Heart Use Rate(bpm) 15:30 PCW 7/4(7) Snapshot 78 15:30 PA 29/11(19) Snapshot 76 15:31 PA 34/10(21) Snapshot 81 15:33 PA 36/6(20) Snapshot 66 15:35 PA 29/7(18) Snapshot 81 15:36 PA 36/9(23) Snapshot 84 15:37 RV 51/11,3 Snapshot 52 15:37 RV 44/-5,0 Snapshot 82 15:38 RA 13/10(5) Snapshot 72 Snapshots Pre Cath Intra NCS Post Cath Vital Signs Time Heart Resp SPO2 etCO2 NIBP (mmHg) Rhythm Pain Sedation Rate (ipm) (%) (mmHg) Status Level (bpm) 15:04:50 84 18 87 0 144/79(106) NSR 0 (11) 10(A) , No pain 15:09:12 72 17 92 0 133/64(106) NSR 0 (11) 10(A) , No pain 15:13:26 79 16 92 0 132/72(107) NSR 0 (11) 10(A) , No pain 15:17:44 79 17 92 0 139/59(105) NSR 0 (11) 10(A) , No pain 15:22:39 78 18 92 0 130/62(101) NSR 0 (11) 10(A) , No pain 15:26:53 81 17 92 0 143/64(103) NSR 0 (11) 9(A) , No pain 15:31:13 74 16 91 0 103/63(89) NSR 0 (11) 9(A) , No pain 15:36:12 71 18 95 0 Measuring NSR 0 (11) 9(A) , No pain 15:36:15 72 17 96 0 122/51(107) NSR 0 (11) 9(A) , No pain 15:40:22 81 17 96 0 134/69(116) NSR 0 (11) 9(A) , No pain Medications Time Medication Route Dose Verified Delivered Reason Notes Effe ctiveness by by 15:03:58 Oxygen NC 2 Guillermo Denys Per l/min St Guillaume Fernández RN physician 15:04:07 Heparin Flush added 2 Guillermo Denys used for Bag to bags St Guillaume Fernández RN procedure (1000units/500ml field SIMS NS) 15:04:17 0.9% NaCl I.V. 100 Guillermo Cramery Per ml/hr St Guillaume Fernández RN physician 15:04:25 Lidocaine 2% added 20ml Guillermo Cramery for local to vial St Guillaume Fernández RN anesthetic field SIMS 15:23:06 Fentanyl I.V. 50 Guillermo Cram[address] for mcg [address] Guillaume Fernández RN sedation 15:23:30 Versed 1 mg Guillermo Mcfarlane for St Guillaume Fernández RN sedation Procedure Log Time Note 14:32:15 Informed consent obtained and on chart 14:32:36 Procedure Status Urgent Heart Cath (IP). 14:32:37 Time tracking: Regular hours (M-F 7:00 - 5:00) 14:32:42 Plan of Care:Hemodynamics will remain stable., Cardiac rhythm will remain stable., Comfort level will be maintained., Respiratory function will remain adequate., Patient/ family verbilizes understanding of procedure., Procedure tolerated without complication., Recovers from procedure without complications.. 14:32:56 Patient allergic to No known allergies 14:33:50 Lab Result : BUN 29 mg/dl 14:33:50 Lab Result : Creatinine 1.5 mg/dl 14:33:50 Lab Result : eGFR NONAFRICAN 36 ml/min 14:33:50 Lab Result : Hemoglobin 10.9 g/dl 14:33:50 Lab Result : Hematocrit 35.5 % 14:33:57 Patient Weight : 174.17 lbs 14:34:00 Patient Height : 64.96 inches 14:47:05 Procedure type changed to Cath procedure, Diagnostic procedure, Right Heart, Right Heart Cath, Right Heart Pharmacology Study, Sedation Charges, Moderate Sedation up to 15 minutes 14:49:02 Denys Fernández RN sent for patient. Start room use. 15:03:35 Vital chart was started 15:03:58 Oxygen 2 l/min NC was administered by Denys Fernández RN; Per physician; Verbal order read back and verified. 15:04:07 Heparin Flush Bag (1000units/500ml NS) 2 bags added to field was administered by Denys Fernández RN; used for procedure; Verbal order read back and verified. 15:04:17 0.9% NaCl 100 ml/hr I.V. was administered by Denys Fernández RN; Per physician; Verbal order read back and verified. 15:04:25 Lidocaine 2% 20ml vial added to field was administered by Denys Fernández RN; for local anesthetic; Verbal order read back and verified. 15:10:29 Patient received from Med II to CCL 2 Alert and oriented. Tansferred to table in Supine position. 15:10:30 Warm blankets applied, and imelda hugger turned on for patient comfort. 15:10:31 Correct patient and procedure confirmed by team. 15:10:31 ECG and BP/O2 sat monitors applied to patient. 15:10:33 Baseline sample Acquired. 15:10:35 Rhythm: sinus rhythm 15:10:36 Full Disclosure recording started 15:10:44 H&P Date Dictated: 02/23/2020 Within 30 days and on chart.. 15:10:45 Pre-procedure instructions explained to patient. 15:10:45 Pre-op teaching completed and patient verbalized understanding. 15:10:47 Family in waiting room. 15:10:48 Patient NPO since Midnight. 15:10:53 Is the patient allergic to Iodine/contrast media? No. 15:11:09 Is patient on blood thinner?No 15:11:23 Patient diabetic? No. 15:11:26 Previous problem with sedation/anesthesia? No ? 15:11:27 Snore? Yes 15:11:28 Sleep apnea? No 15:11:31 Deviated septum? No 15:11:33 Opens mouth fully? Yes 15:11:33 Sticks out tongue? Yes 15:12:02 Airway obstruction? Yes COPD 15:12:06 Dentures? Yes OUT 15:12:25 IV patent on arrival in right forearm with 0.9% NaCl at [facility]. 15:12:27 Lab results completed and on chart. 15:12:32 Right groin area was prepped with chlora-prep and draped in sterile fashion 15:12:33 Alarms reviewed by R. N. 15:12:33 Sharps counted by scrub and verified by R.N. 15:12:40 Use device set Acist 15:12:41 ACIST Syringe (81882) opened to sterile field. 15:12:41 ACIST Hand Control (25415) opened to sterile field. 15:12:41 ACIST Manifold (22692) opened to sterile field. 15:12:45 Use device set CATH PACK 15:12:56 Bag Decanter (2002S) opened to sterile field. 15:12:57 Medline Cath Pack ([id number]) opened to sterile field. 15:12:57 EMERALD Guide Wire (452-845) opened to sterile field. 15:13:12 SHEATH 7FR Osyka ([id number]) opened to sterile field. 15:22:46 Physician arrived 15:22:47 --------ALL STOP TIME OUT------ 15:22:47 Final Timeout: patient, procedure, and site verified with staff and physician. All members of the team are in agreement. 15:22:49 Right groin site verified by team. 15:22:54 Fire Safety Assessment: A--An alcohol-based skin anteseptic being used preoperatively., C--Open oxygen or nitrous oxide is being used., D--An ESU, laser, or fiber-optic light is being used. 15:22:58 Physical assessment completed. ASA score P 2 - A patient with mild systemic disease as per Guillermo Brandt MD. 15:23:06 Fentanyl 50 mcg I.V. was administered by Denys Fernández RN; for sedation; Verbal order read back and verified. 15:23:29 3b) 30-44 Moderately reduced kidney function. 15:23:30 Versed 1 mg was administered by Denys Fernández RN; for sedation; Verbal order read back and verified. 15:24:00 Maximum allowable contrast dose (3.7 X eGFR X 0.75)100 ml. 15:24:05 Sedation plan: IV Moderate Sedation Medication:Versed, Fentanyl 15:26:27 Procedure started. 15:26:31 Local anesthetic to right femoral vein with Lidocaine 2% by Guillermo Brandt MD.INITIAL ACCESS ONLY 15::42 A 7 Fr Short sheath was inserted into the Right Femoral artery 15:28:08 A SWAN 7Fr Thermodilution cather (131F7P) was advanced over the wire and used for Right heart cath. 15:28:20 Zero performed for pressure channel P1 15:28:26 Zero performed for pressure channel P1 15:28:32 Zero performed for pressure channel P1 15:28:39 Zero performed for pressure channel P1 15:28:50 Zero performed for pressure channel P1 15:32:23 STARTING WITH 50 OF ADENOSINE 15:34:01 Timer 1 started at 3:32 PM, stopped at 3:34 PM, duration 00:01:59 sec. 15:34:57 SECOND DOSE 100 OF ADENOSINE 15:35:40 GOING UP TO 200 OF ADENOSINE 15:38:16 Right heart pressures obtained. 15:38:18 Beaumont-Shoshana removed. 15:39:13 Sheath removed intact; hemostasis achieved with Manual Compression to the Right Femoral artery. 15:39:14 Procedure ended.(Physican Out) 15:39:21 Fluoroscopy time 01.10 minutes. 15:39:24 Fluoroscopy dose: 65 mGy 15:39:24 Flurop Dose total: 65 15:39:28 Dose Area Product 7413 mGy/cm. 15:39:34 Sharps counted by scrub and verified by R.N. 15:39:35 Insertion/operative site no bleeding no hematoma. 15:39:42 Post-op/insertion site Right Femoral vein dressed using a 4 x 4 and Tegaderm. 15:39:44 Post Procedure Pulses reassessed and unchanged 15:39:46 Post procedure rhythm: unchanged. 15:39:48 Estimated blood loss: 5 ml 15:39:50 Post procedure instruction explained to patient.Patient verbalizes understanding. 15:39:51 Patient needs reinforcement of post procedure teaching. 15:39:52 Procedure and supply charges have been captured, reviewed, submitted and are correct. 15:39:57 Procedure Complication : No complications 15:39:59 Vital chart was stopped 15:40:13 C Findings: PHTN: see procedure notes for sats and pressures 15:40:15 Operative report dictated upon procedure completion. 15:40:16 See physician's report for complete and final results. 15:40:18 Report given to Med II. 15:40:32 Patient transfered to Med II with Stretcher. 15:40:34 Procedure ended. 15:40:34 Full Disclosure recording stopped 15:41:33 End room use (Document Last) Device Usage Item Name Manufacture Quantity Catalog Hospital Part Current Minima l Lot# / Number Charge Number Stock Stock Serial# Code ACIST Syringe Acist 1 70416 [id number] 254201 119950 20 (55500) Medical Systems Inc ACIST Hand Acist 1 08393 038892 406451 241295 5 Control Medical (45771) Systems Inc ACIST Manifold Acist 1 14314 876307 201965 099781 5 (25450) Medical Systems Inc Bag Decanter Microtek 1 2002S 942646 77640 420836 5 (2002S) Medical Inc. Medline Cath Medline 1 [id number] 937580 52491 311842 5 Pack ([id number]) EMERALD Guide Cardinal 1 502-455 092541 410615 109501 5 Wire (502-455) Health SHEATH 7FR Terumo 1 [id number] 620914 404047 397847 5 Osyka (BWL373) SWAN 7Fr Aguayo 1 131F7P 439818 29329 142064 3 Thermodilution Lifesciences cather (131F7P) Signature Audit [place] Stage Time Signature Unsigned Intra-Procedure 02/27/2020 Siria Carbajal 3:43:59 PM RT(R) Intra-Procedure 02/27/2020 Denys Fernández 3:44:36 PM RN Intra-Procedure 02/27/2020 Guillermo Izaguirre 3:44:50 PM Guillaume SIMS Signatures Performing Physician : Signature : Guillermo Rikki MD Date : Time : Nurse : Denys Fernández RN Signature : Date : Time : Monitor : Siria Solomon RT Signature : Date : Time : [place] [address] [place] [address]
[~2020-02-22 22:09] MED LIST changes: +COZAAR50 MG PO; +HYDROCHLOROTH12.5 M1 PO; +NORVASC5 MG PO; +NYSTATIN100000 UN4 PO; +PREDNISONE10 MG PO; +SINGULAIR10 MG PO
[2020-02-22 23:00] VITALS: BP 129/88
[2020-02-22] MEDS ORDERED: SYMBICORT 16010.2 GM INH (23:21)
[2020-02-22 23:22] LABS: HEMATOCRIT 26.5 % (36.0-48.0); HEMOGLOBIN 8.3 g/dL (12-16); MCH 28.7 pg (26.0-34.0); MCHC 31.3 g/dL (31.0-37.0); MCV 91.7 fL (80.0-100.0); MEAN PLATELET VOLUME 10.1 fL (7.4-10.4); NEUTROPHILS 83.3 % (40-80); RBC 2.89 10x6/uL (4.00-5.40); RDW 16.5 % (11.5-14.5); WBC 8.6 10x3/uL (4.8-10.8)
[2020-02-22] MEDS ORDERED: IPRAT-ALBUT 0.5-3 ML UPD (23:22)
[2020-02-22] MEDS ORDERED: ATROVENT HFA12.9 GM INH (23:22)
[2020-02-22 23:23] LABS: PLATELET COUNT 197 10x3/uL (130-400)
[2020-02-22] MEDS ORDERED: GLUCOTROL ER2.5 MG PO (23:23)
[2020-02-22] MEDS ORDERED: FLUTICASONE PRO16 GM NASAL (23:23)
[2020-02-22 23:30] LABS: APTT 34.3 SECONDS (22.8-39.4); INR 1.26 (0.85-1.17); PROTIME 15.7 SECONDS (11.6-15.0)
[2020-02-22 23:33] LABS: CALC OSMOLALITY 289 mosm/kg (275-300); CALCIUM 9.2 mg/dL (8.5-10.1); CARBON DIOXIDE 29.6 mmol/L (21.0-32.0); CHLORIDE - SERUM 105 mmol/L (98-107); CREATININE - SERUM 1.5 mg/dL (0.6-1.3); GLUCOSE 122 mg/dL (74-106); POTASSIUM - SERUM 4.4 mmol/L (3.5-5.1); SODIUM 138 mmol/L (136-145); UREA NITROGEN 49 mg/dL (7-18); eGFR NON AFRICAN AMERICAN 36 mL/min (90-120)
[2020-02-22 23:54] LABS: ALBUMIN 3.2 g/dL (3.4-5.0); ALKALINE PHOSPHATASE 76 U/L (30-120); ALT (SGPT) 35 U/L (10-68); BILIRUBIN - TOTAL 0.69 mg/dL (0.2-1.3); CKMB 1.9 U/L (0.0-3.6); CREATINE KINASE 76 UL (21-215); PRO BNP 1337 pg/mL (0-125); PROTEIN - SERUM 6.9 g/dL (6.4-8.2)
[2020-02-22 23:55] LABS: TROPONIN-I < 0.017 ng/mL (0.000-0.060)
[2020-02-23 01:00] VITALS: BP 140/46
[2020-02-23 01:51] LABS: % SATURATION 4 % (15-55); IRON 12 ug/dl (35-150); TOTAL IRON BIND CAPACITY 273 ug/dl (260-445); UNSAT IRON BIND CAPACITY 261 ug/dl (150-375)
[2020-02-23 02:01] LABS: BILIRUBIN NEGATIVE (NEGATIVE); KETONE NEGATIVE (NEGATIVE); NITRITE NEGATIVE (NEGATIVE); UROBILINOGEN NORMAL mg/dL (< 2)
--- NOTE | 2020-02-23 02:30 | NUR ---
PT GIVEN WATER AND SUGAR FREE JELLO
[2020-02-23 03:40] VITALS: BP 144/46
--- NOTE | 2020-02-23 03:40 | NUR ---
CONSENT SIGNED FOR BLOOD AT THIS TIME.
--- NOTE | 2020-02-23 03:40 | NUR ---
FIRST UNIT BLOOD STARTED.
[2020-02-23 04:30] VITALS: BP 156/48
[2020-02-23 05:59] VITALS: BP 149/47
--- NOTE | 2020-02-23 05:59 | NUR ---
SECOND UNIT BLOOD STARTED.
--- NOTE | 2020-02-23 07:07 | NUR ---
AMINTA MCGRAW CALLED ABOUT ABNORMAL D DIMER.
--- NOTE | 2020-02-23 09:34 | NUR ---
VASQUZE AND ANNA NOTIFIED OF CONSULTS
[2020-02-23 13:41] VITALS: BP 156/45
--- NOTE | 2020-02-23 16:25 | NUR ---
PT. STATES THAT SHE DOESN'T WANT A HUMALOG INJECTION DUE TO HER TAKING GLIPIZIDE BID
--- NOTE | 2020-02-23 21:10 | NUR ---
REPORT RECEIVED FROM MARILYN HIGGINS, PT CARE ASSUMED. AWAITING PT'S ARRIVAL TO 2102.
--- NOTE | 2020-02-23 21:26 | NUR ---
PT TO ROOM 2103 VIA WHEELCHAIR ACCOMPANIED BY HOSPITAL STAFF.
[2020-02-23 23:04] VITALS: BP 128/37
[2020-02-24] VITALS (7 sets, daily range): BP systolic 114–133; BP diastolic 37–58; Ht 165.1 cm; Wt 79.4 kg
--- NOTE | 2020-02-24 08:01 | NUR ---
PATIENT IS SITTING UP IN HER CHAIR THIS AM, DOING A BREATHING TREATMENT. PLAN OF CARE REVIEWED AND ASSESSMENT HAS BEEN COMPLETED. PATIENT DENIES PAIN OR NEEDS. CALL LIGHT IN REACH. NAD NOTED.
[2020-02-24 08:05] LABS: BASOPHILS 0.4 % (0-2); EOSINOPHILS 0.9 % (0-7); IMMATURE GRANULOCYTES 0.4 % (0-5); LYMPHOCYTES 10.9 % (15-50); MCH 28.5 pg (26.0-34.0); MCHC 31.9 g/dL (31.0-37.0); MEAN PLATELET VOLUME 11.2 fL (7.4-10.4); NEUTROPHILS 80.4 % (40-80); PLATELET COUNT 196 10x3/uL (130-400); RDW 16.5 % (11.5-14.5)
[2020-02-24 08:17] LABS: HEMATOCRIT 34.8 % (36.0-48.0); HEMOGLOBIN 11.1 g/dL (12-16); MCV 89.5 fL (80.0-100.0); RBC 3.89 10x6/uL (4.00-5.40); WBC 5.6 10x3/uL (4.8-10.8)
[2020-02-24 08:46] LABS: ANION GAP 9.1 mmol/L (8-16); BILIRUBIN - TOTAL 0.77 mg/dL (0.2-1.3); CALCIUM 8.9 mg/dL (8.5-10.1); CARBON DIOXIDE 29.2 mmol/L (21.0-32.0); CREATININE - SERUM 1.2 mg/dL (0.6-1.3); MAGNESIUM - SERUM 2.2 mg/dL (1.8-2.4); POTASSIUM - SERUM 4.3 mmol/L (3.5-5.1); PROTEIN - SERUM 6.3 g/dL (6.4-8.2)
[2020-02-25 04:30] VITALS: BP 124/43
--- NOTE | 2020-02-25 07:20 | NUR ---
RECIEVE REPORT. ALERT AND ORIENTED X4. SITTING UP IN BED WATCHING TV. DENIES ANY NEEDS. CONTINUE PLAN OF CARE AND SAFETY PRECAUTIONS.
[2020-02-25 07:29] LABS: BASOPHILS 0.4 % (0-2); EOSINOPHILS 1.9 % (0-7); HEMATOCRIT 33.2 % (36.0-48.0); HEMOGLOBIN 10.3 g/dL (12-16); IMMATURE GRANULOCYTES 0.2 % (0-5); LYMPHOCYTES 11.2 % (15-50); MCH 27.9 pg (26.0-34.0); MONOCYTES 10.4 % (2-11); NEUTROPHILS 75.9 % (40-80); PLATELET COUNT 196 10x3/uL (130-400); RBC 3.69 10x6/uL (4.00-5.40); RDW 16.5 % (11.5-14.5); WBC 4.8 10x3/uL (4.8-10.8)
[2020-02-25 07:34] LABS: ALBUMIN 2.8 g/dL (3.4-5.0); ANION GAP 14.4 mmol/L (8-16); BILIRUBIN - TOTAL 0.36 mg/dL (0.2-1.3); CALCIUM 8.3 mg/dL (8.5-10.1); CARBON DIOXIDE 26.9 mmol/L (21.0-32.0); CREATININE - SERUM 1.1 mg/dL (0.6-1.3); MAGNESIUM - SERUM 2.2 mg/dL (1.8-2.4); POTASSIUM - SERUM 4.3 mmol/L (3.5-5.1)
[2020-02-25 08:32] VITALS: BP 128/52
[2020-02-25 12:40] VITALS: BP 139/60
[2020-02-25 16:13] VITALS: BP 132/54
--- NOTE | 2020-02-25 17:20 | NUR ---
ALERT AND ORIENTED X4. SITTING UP IN CHAIR. LT FA IV INFILTRATED. DC LT FA IV TIP INTACT. RT AC IV INFILTRATED. DC RT AC IV TIP INTACT. RESITE IV TO RT FA 20G. DENIES ANY NEEDS. CONTINUE PLAN OF CARE AND SAFETY PRECAUTIONS.
[2020-02-25] MEDS ORDERED: OS-CAL500 MG PO (20:43)
[2020-02-25 20:46] VITALS: BP 131/54
[2020-02-26 01:31] VITALS: BP 132/49
[2020-02-26 05:41] VITALS: BP 129/50
[2020-02-26 07:11] LABS: BASOPHILS 0.2 % (0-2); EOSINOPHILS 2.2 % (0-7); HEMATOCRIT 34.8 % (36.0-48.0); HEMOGLOBIN 10.7 g/dL (12-16); IMMATURE GRANULOCYTES 0.4 % (0-5); LYMPHOCYTES 12.8 % (15-50); MCH 27.9 pg (26.0-34.0); MCHC 30.7 g/dL (31.0-37.0); MCV 90.6 fL (80.0-100.0); MONOCYTES 9.6 % (2-11); NEUTROPHILS 74.8 % (40-80); PLATELET COUNT 207 10x3/uL (130-400); RBC 3.84 10x6/uL (4.00-5.40); RDW 16.4 % (11.5-14.5); WBC 5.1 10x3/uL (4.8-10.8)
--- NOTE | 2020-02-26 07:20 | NUR ---
RECIEVE REPORT. ALERT AND ORIENTED X4. SITTING UP IN CHAIR. DENIES ANY NEEDS. CONTINUE PLAN OF CARE AND SAFETY PRECAUTIONS.
[2020-02-26 07:36] LABS: ALBUMIN 2.9 g/dL (3.4-5.0); BILIRUBIN - TOTAL 0.29 mg/dL (0.2-1.3); CARBON DIOXIDE 30.3 mmol/L (21.0-32.0); CREATININE - SERUM 1.2 mg/dL (0.6-1.3); MAGNESIUM - SERUM 2.2 mg/dL (1.8-2.4); POTASSIUM - SERUM 4.3 mmol/L (3.5-5.1); PROTEIN - SERUM 6.7 g/dL (6.4-8.2)
[2020-02-26 08:02] VITALS: BP 122/56
[2020-02-26 09:06] LABS: CHOL - HDL RATIO 2.6 ratio (2.3-4.1); LDL-HDL RATIO 1.4 ratio (1.5-3.5)
[2020-02-26 11:56] VITALS: BP 145/49
--- NOTE | 2020-02-26 13:13 | NUR ---
OT NOTE: PT PERFORMING ADLS AND MOBILITY INDEP. PT IS ALERT AND ORIENTED X 4. NO OT RECOMMENDED AT THIS TIME. ROBBY POPE, OTR/L
--- NOTE | 2020-02-26 15:45 | NUR ---
ALERT AND ORIENTED X4. SITTING UP IN CHAIR. CONSENTS FOR HEART CATH SIGNED ON CHART. DENIED ANY NEEDS. CONTINUE PLAN OF CARE AND SAFETY PRECAUTIONS.
[2020-02-26 17:26] VITALS: BP 134/56
[2020-02-26 23:15] VITALS: BP 133/52
[2020-02-27 03:03] VITALS: BP 131/46
[2020-02-27 05:28] LABS: ALBUMIN 3.1 g/dL (3.4-5.0); ANION GAP 11.6 mmol/L (8-16); BASOPHILS 0.2 % (0-2); BILIRUBIN - TOTAL 0.38 mg/dL (0.2-1.3); CARBON DIOXIDE 29.7 mmol/L (21.0-32.0); CREATININE - SERUM 1.5 mg/dL (0.6-1.3); EOSINOPHILS 2.1 % (0-7); HEMATOCRIT 35.5 % (36.0-48.0); HEMOGLOBIN 10.9 g/dL (12-16); IMMATURE GRANULOCYTES 0.4 % (0-5); LYMPHOCYTES 14.7 % (15-50); MAGNESIUM - SERUM 2.1 mg/dL (1.8-2.4); MCHC 30.7 g/dL (31.0-37.0); MCV 91.3 fL (80.0-100.0); MEAN PLATELET VOLUME 11.2 fL (7.4-10.4); MONOCYTES 8.2 % (2-11); NEUTROPHILS 74.4 % (40-80); PLATELET COUNT 237 10x3/uL (130-400); POTASSIUM - SERUM 4.3 mmol/L (3.5-5.1); PROTEIN - SERUM 6.9 g/dL (6.4-8.2); RBC 3.89 10x6/uL (4.00-5.40); RDW 16.4 % (11.5-14.5); WBC 5.3 10x3/uL (4.8-10.8)
--- NOTE | 2020-02-27 05:48 | NUR ---
NEW 20G IV STARTED IN PT'S RFA. PT A/O X4 RR E/U ON 4L O2 AT 96%. VITALS STABLE AT THIS TIME. NO S/S OF DISTRESS. PT DENIES ANY PAIN OR FURTHER NEEDS AT THIS TIME. BED LOW CALL LIGHT WITHIN REACH. WILL CONTINUE TO MONITOR.
[2020-02-27 06:11] VITALS: BP 120/49
[2020-02-27 07:00] VITALS: BP 109/65
--- NOTE | 2020-02-27 07:20 | NUR ---
RECIEVE REPORT. ALERT AND ORIENTED X4. SITTING UP IN CHAIR. DENIES ANY NEEDS. CONTINUE PLAN OF CARE AND SAFETY PRECAUTIONS.
--- NOTE | 2020-02-27 10:10 | NUR ---
IRON INFUSION STOPPED AT 1839 ON 02/23/20.
[2020-02-27 10:30] VITALS: BP 110/41
--- NOTE | 2020-02-27 12:45 | NUR ---
Nutrition Follow-up: NPO for heart cath today. Reports that she has been eating well; 90-100% of meals per chart. Denies N/V/C/D. Wt: 175# (02/23) Last BM: 02/25 Labs noted: Glu 91, Alb 3.1 Meds noted: Ferrlecit, Glucotrol, Protonix, electrolyte protocol -RD following.
--- NOTE | 2020-02-27 16:34 | NUR ---
RETURN TO ROOM VIA BED FROM DIRECTOR OF CAMPUS RECREATION. SEDATED, AROUSES TO STIMULI. ENCOURAGE TO REMAIN FLAT FOR NEXT 2 HOURS DUE TO RISK FOR BLEEDING. BP-135/72, HR-72, O2-94% WITH 4L NC. RT GROIN DRESSING CLEAN DRY INTACT. FREE FROM BLEEDING. FREE FROM HEMATOMA. PULSE PALPABLE BILATERAL. CONTINUE PLAN OF CARE AND SAFETY PRECAUTIONS.
--- NOTE | 2020-02-27 17:56 | MORECARE ---
CASE MANAGEMENT DISCHARGE SUMMARY PATIENT: JOHN ULLOA UNIT: [id number] ADM DATE: 02/23/20 AGE: 74 : 46 SEX: F ROOM/BED: D.2100 AUTHOR: DUNG MOMIN PHYSICIAN: REFERRING PHYSICIAN: AUBRIE RODRÍGUEZ MD DATE OF SERVICE: 02/27/20 Discharge Plan Patient Name: JOHN ULLOA Facility: [facility]:[place] : 1945 Planned Disposition: Anticipated Discharge Date: Discharge Date: Expected LOS: Initial Reviewer: [email or web address] Initial Review Date: 02/23/2020 Generated: 02/27/20 6:55 pm Comments DCP- Discharge Planning Updated by [email or web address]: Rebecca Saab on 02/27/20 4:[address] CM met with patient for DC planning. Patient is in agreement to same. Patient lives wth her daughter, Tamera, in her home and there are 15-20 steps, w/rails to enter the house. Patient states she is managing them well. PCP: Dr. Fernanda Knight APN. [facility]acy[facility]. Emergency contact: Tamera Ulloa (dtr) [phone]. DME: Home O2, portable O2, nebulizer, Rollator (doesn't use), hospital bed, shower bench, glucometer checks BS QD and records it. HHS: Resume [facility] ([phone]) upon DC. Community care: "It's all about you", Tamera (dtr) is employed and is caregiver. Patient requires assist with cooking, cleaning, meals, MD appointments. Patient denies the need for Rehab, SNF. Patient's private care will resume upon DC and her daughter will drive her home. Patient voices no needs at this time, other than those above. Patient Name: JOHN ULLOA Page [id number] at 1756 All edits/amendments must be made on the electronic document DICTATION DATE: 02/27/201754 INSIDE BARREL LATHE OPERATOR: SIMON 02/27/201754 RPT#: [id number] DC DATE: STATUS: ADM IN [facility] [address] [place] [address] END OF REPORT
--- NOTE | 2020-02-27 18:03 | MORECARE ---
CASE MANAGEMENT DISCHARGE SUMMARY PATIENT: JOHN ULLOA UNIT: [id number] ADM DATE: 02/23/20 AGE: 74 : 46 SEX: F ROOM/BED: D.2103 AUTHOR: MERRILL,DOC PHYSICIAN: REFERRING PHYSICIAN: AUBRIE RODRÍGUEZ MD DATE OF SERVICE: 02/27/20 Discharge Plan Patient Name: JOHN ULLOA Facility: [facility]:[place] : 1945 Planned Disposition: Anticipated Discharge Date: Discharge Date: Expected LOS: Initial Reviewer: [email or web address] Initial Review Date: 02/23/2020 Generated: 02/27/20 7:03 pm Comments DCP- Discharge Planning Updated by [email or web address]: Rebecca Saab on 02/27/20 4:[address] CM met with patient for DC planning. Patient is in agreement to same. Patient lives wth her daughter, Tamera, in her home and there are 15-20 steps, w/rails to enter the house. Patient states she is managing them well. PCP: Siria Fuentes APN, Dr. Michael. [facility]acy: [facility]. Emergency contact: Tamera Ulloa (dtr) [phone]. DME: Home O2, portable O2, nebulizer, Rollator (doesn't use), hospital bed, shower bench, glucometer checks BS QD and records it. HHS: Resume [facility] ([phone]) upon DC. Community care: "It's all about you", Tamera (dtr) is employed and is caregiver. Patient requires assist with cooking, cleaning, meals, MD appointments. Patient denies the need for Rehab, SNF. Patient's private care will resume upon DC and her daughter will drive her home. Patient voices no needs at this time, other than those above. DCPIA - Discharge Planning Initial Assessment Updated by [email or web address]: Rebecca Saab on 02/27/20 5:57 pm * Is the patient Alert and Oriented? Yes * How many steps to enter\\exit or inside your home? 15-20 w/ra * PCP Siria Michael * [facility]acy [facility] * Preadmission Environment Home with Family * ADLs Partial Dependent * Partial ADLs (Assistance needed) Medication Management * Equipment Glucometer Hospital Bed Nebulizer Oxygen Shower Chair Tub Bench * Other Equipment Glucometer, Portable O2 * List name and contact numbers for known caregivers / representatives who currently or will assist patient after discharge: Tamera Ulloa (dtr) [phone] * Verbal permission to speak to the caregivers and representatives has been obtained from the patient. Yes * Community resources currently utilized Home Health Private Duty Care * Please name any agencies selected above. [facility] "It's All About You" * Additional services required to return to the preadmission environment? No * Can the patient safely return to the preadmission environment? Yes * Has this patient been hospitalized within the prior 30 days at any hospital? No Last DP export: 02/27/20 4:56 Patient Name: JOHN ULLOA Page [id number] at 1803 All edits/amendments must be made on the electronic document DICTATION DATE: 02/27/201802 SWITCHBOARD TROUBLESHOOTER: SIMON 02/27/201802 RPT#: [id number] DC DATE: STATUS: ADM IN [facility] [address] [place] [address] END OF REPORT
[2020-02-27 20:00] VITALS: BP 119/67
[2020-02-28] VITALS: BP 96/39
[2020-02-28 04:00] VITALS: BP 123/50
[2020-02-28 06:24] LABS: BASOPHILS 0.4 % (0-2); EOSINOPHILS 1.6 % (0-7); HEMOGLOBIN 10.7 g/dL (12-16); IMMATURE GRANULOCYTES 0.4 % (0-5); LYMPHOCYTES 13.2 % (15-50); MCH 28.1 pg (26.0-34.0); MCHC 30.6 g/dL (31.0-37.0); MCV 91.9 fL (80.0-100.0); MONOCYTES 10.4 % (2-11); PLATELET COUNT 223 10x3/uL (130-400); RBC 3.81 10x6/uL (4.00-5.40); RDW 16.8 % (11.5-14.5); WBC 5.1 10x3/uL (4.8-10.8)
[2020-02-28 06:59] LABS: ANION GAP 8.8 mmol/L (8-16); BILIRUBIN - TOTAL 0.23 mg/dL (0.2-1.3); CALCIUM 9.1 mg/dL (8.5-10.1); CARBON DIOXIDE 30.4 mmol/L (21.0-32.0); CREATININE - SERUM 1.2 mg/dL (0.6-1.3); MAGNESIUM - SERUM 2.1 mg/dL (1.8-2.4); POTASSIUM - SERUM 4.2 mmol/L (3.5-5.1); PROTEIN - SERUM 6.9 g/dL (6.4-8.2)
[2020-02-28 07:29] VITALS: BP 112/47
--- NOTE | 2020-02-28 08:08 | NUR ---
ROUNDING DONE WITH PATIENT SITTING UP IN THE CHAIR, BED ALREADY MADE PER HERSELF. 4L PER NC ON AND IN USE. LEFT FA SEEN WITH SALINE LOCK. NEEDING STOOL SAMPLE. ON EP, LAB RESUTLS ARE IN AND GOOD. WILL CHECK GROIN SITE FROM PREVIOUS PROCEDURE YESTERDAY SHORTLY. DENIES NEEDS AT THIS TIME.
--- NOTE | 2020-02-28 09:19 | NUR ---
BLOOD PRESSURE IS 112/47. DR ROJO ON FLOOR AND I ASKED HIM IF I NEEDED TO HOLD ANY MEDS. DONE.
--- NOTE | 2020-02-28 10:43 | OP ---
PATIENT NAME: JOHN COSME MEDICAL RECORD: [id number] :[birth year] LOCATION:D.M2 D.2103 ADMISSION DATE:02/23/20 SURGEON: LULU CLAYTON MD DATE OF OPERATION: 02/27/2020 PROCEDURE: Right heart catheterization. INDICATION: Pulmonary hypertension. DESCRIPTION OF PROCEDURE: After right femoral vein was cannulated via modified Seldinger technique, the [place]-Shoshana catheter was placed in the pulmonary capillary wedge pressure and then measures were taken as well as IV adenosine infusion during PA pressure monitoring. FINDINGS: 1. Pulmonary capillary wedge pressure: This showed a mean of 16. 2. PA pressure: Varied between 37-40 mmHg, peak systolic. There was some variability due to the underlying atrial fibrillation; however, IV adenosine was infused in an incremental fashion up to a maximum of 200 mcg per kg per minute. At this point, there was no change in pulmonary pressures. Catheter was then pulled back. RV pressure was 36/9, right atrial pressure was 8. IMPRESSION: Mild pulmonary hypertension with no vasoreactivity to IV adenosine. TRANSINT:[id number] Voice Confirmation ID: [id number] DOCUMENT ID: [id number] LULU CLAYTON MD at 1043 CC: [id number] DICTATION DATE: 02/27/20 1545 DETECTIVE SERGEANT: 02/27/20 2216 ADM IN [facility] [address] [id number]
[2020-02-28 12:11] LABS: ANA REFLEX - ANTICHROMATIN ABS <0.2 AI (0.0-0.9); ANA REFLEX - CENTROMERE B ABS <0.2 AI (0.0-0.9); ANA REFLEX - DBL STRANDED DNA <1 IU/mL (0-9); ANA REFLEX - DIRECT Positive (Negative); ANA REFLEX - JO-1 AB <0.2 AI (0.0-0.9); ANA REFLEX - RNP ANTIBODIES <0.2 AI (0.0-0.9); ANA REFLEX - SCL-70 <0.2 AI (0.0-0.9); ANA REFLEX - SJOGRENS AB SSA >8.0 AI (0.0-0.9); ANA REFLEX - SJOGRENS AB SSB <0.2 AI (0.0-0.9); ANA REFLEX - SMITH AB <0.2 AI (0.0-0.9)
[2020-02-28 12:21] VITALS: BP 111/26
--- NOTE | 2020-02-28 12:41 | NUR ---
LAYING ON LEFT SIDE IN DARK ROOM RESTING WITH EYES CLOSED. AROUSES EASILY. DENEIS NEEDS AT THIS TIME.
--- NOTE | 2020-02-28 12:48 | MORECARE ---
CASE MANAGEMENT DISCHARGE SUMMARY PATIENT: JOHN ULLOA UNIT: [id number] ADM DATE: 02/23/20 AGE: 74 : 47 SEX: F ROOM/BED: D.2103 AUTHOR: MERRILL,DOC PHYSICIAN: REFERRING PHYSICIAN: AUBRIE RODRÍGUEZ MD DATE OF SERVICE: 02/28/20 Discharge Plan Patient Name: JOHN ULLOA Facility: [facility]:[place] : 1945 Planned Disposition: Anticipated Discharge Date: Discharge Date: Expected LOS: Initial Reviewer: [id number] Initial Review Date: 02/23/2020 Generated: 02/28/20 1:47 pm Comments DCP- Discharge Planning Updated by [id number]: Rebecca Saab on 02/27/20 4:[address] CM met with patient for DC planning. Patient is in agreement to same. Patient lives wth her daughter, Tamera, in her home and there are 15-20 steps, w/rails to enter the house. Patient states she is managing them well. PCP: Siria Fuentes APN, Dr. Michael. Pharmacy: [facility]. Emergency contact: Tamera Ulloa (dtr) [phone]. DME: Home O2, portable O2, nebulizer, Rollator (doesn't use), hospital bed, shower bench, glucometer checks BS QD and records it. HHS: Resume [facility] ([phone]) upon DC. Community care: "It's all about you", Tamera (dtr) is employed and is caregiver. Patient requires assist with cooking, cleaning, meals, MD appointments. Patient denies the need for Rehab, SNF. Patient's private care will resume upon DC and her daughter will drive her home. Patient voices no needs at this time, other than those above. DCPIA - Discharge Planning Initial Assessment Updated by [email or web address]: Rebecca Saab on 02/27/20 5:57 pm * Is the patient Alert and Oriented? Yes * How many steps to enter\\exit or inside your home? 15-20 w/ra * PCP Siria Michael * [facility] * Preadmission Environment Home with Family * ADLs Partial Dependent * Partial ADLs (Assistance needed) Medication Management * Equipment Glucometer Hospital Bed Nebulizer Oxygen Shower Chair Tub Bench * Other Equipment Glucometer, Portable O2 * List name and contact numbers for known caregivers / representatives who currently or will assist patient after discharge: Tamera Ulloa (dtr) [phone] * Verbal permission to speak to the caregivers and representatives has been obtained from the patient. Yes * Community resources currently utilized Home Health Private Duty Care * Please name any agencies selected above. [facility] "[facility]" * Additional services required to return to the preadmission environment? No * Can the patient safely return to the preadmission environment? Yes * Has this patient been hospitalized within the prior 30 days at any hospital? No Last DP export: 02/27/20 5:03 Patient Name: JOHN ULLOA Page 79576 at 1248 All edits/amendments must be made on the electronic document DICTATION DATE: 02/28/201247 FINANCE MGR: SIMON 02/28/20 124 RPT#: [id number] DC DATE: STATUS: ADM IN [facility] [address] [place] [address] END OF REPORT
[2020-02-28 15:55] VITALS: BP 122/59
--- NOTE | 2020-02-28 17:31 | NUR ---
IV TO RIGHT FA REMOVED II IS LEAKING. CATH TIP INTACT.
[2020-02-28 20:00] VITALS: BP 132/61
[2020-02-29 06:36] LABS: BASOPHILS 0.4 % (0-2); EOSINOPHILS 1.7 % (0-7); HEMOGLOBIN 10.4 g/dL (12-16); IMMATURE GRANULOCYTES 0.4 % (0-5); LYMPHOCYTES 13.2 % (15-50); MCH 28.1 pg (26.0-34.0); MCHC 30.6 g/dL (31.0-37.0); MCV 91.9 fL (80.0-100.0); MEAN PLATELET VOLUME 10.2 fL (7.4-10.4); MONOCYTES 12.8 % (2-11); NEUTROPHILS 71.5 % (40-80); PLATELET COUNT 187 10x3/uL (130-400); RDW 16.7 % (11.5-14.5); WBC 4.7 10x3/uL (4.8-10.8)
--- NOTE | 2020-02-29 07:39 | NUR ---
PT IS RESTING IN BED WITH EYES OPEN. RESIPRATIONS ARE EVEN AND UNLABORED. PT DENIES PRESENCE OF DYSPNEA/DIZZINESS AT THIS TIME. O2 VIA NC @ 4L. LEFT FA PIV IN PLACE AND FLUSHESE WITHOUT DIFFICULTY. NO REDNESS/TENDERNESS NOTED. DRESSING IN PLACE AND CDI. DRESSING TO RIGHT GROIN OTED AND IS CDI. PT DENIES PRESENCE OF NUMBNESS/TINLING TO BUE AND BLE AT THIS TIME. PT DENIES PRESENCE OF PAIN/N/V. BED IS IN THE LOWEST POSITION. CALL LIGHT AND BEDSIDE TABLE ARE WITHIN REACH. SIDE RAILS X 2. PT DENIES FURTHER NEEDS. WILL CONT TO MONITOR.
[2020-02-29 09:17] VITALS: BP 123/52
[2020-02-29] MEDS ORDERED: PERFOROMIS20 MCG/21 UPD (09:29)
--- NOTE | 2020-02-29 11:28 | NUR ---
Nutrition Follow-up: Eating well. Noted plans to d/c today. Diet: Diabetic, 2 g Na PO intake: 100% last 4 meals Wt: 175# (02/23) Labs reviewed Meds noted: Ferrlecit, Glucotrol, Protonix, electrolyte protocol -RD following.
--- NOTE | 2020-02-29 11:37 | MORECARE ---
CASE MANAGEMENT DISCHARGE SUMMARY PATIENT: JOHN ULLOA UNIT: [id number] ADM DATE: 02/23/20 AGE: 74 : 47 SEX: F ROOM/BED: D.2103 AUTHOR: MERRILL,DOC PHYSICIAN: REFERRING PHYSICIAN: AUBRIE RODRÍGUEZ MD DATE OF SERVICE: 02/29/20 Discharge Plan Patient Name: JOHN ULLOA Facility: [facility]:[place] : 1945 Planned Disposition: Anticipated Discharge Date: Discharge Date: Expected LOS: Initial Reviewer: [id number] Initial Review Date: 02/23/2020 Generated: 02/29/20 12:36 pm Comments DCP- Discharge Planning Updated by [id number]: Rebecca Saab on 02/27/20 4:[address] CM met with patient for DC planning. Patient is in agreement to same. Patient lives wth her daughter, Tamera, in her home and there are 15-20 steps, w/rails to enter the house. Patient states she is managing them well. PCP: Siria Fuentes APN, Dr. Michael. [facility]acy[facility]. Emergency contact: Tamera Ulloa (dtr) [phone]. DME: Home O2, portable O2, nebulizer, Rollator (doesn't use), hospital bed, shower bench, glucometer checks BS QD and records it. HHS: Resume [facility] ([phone]) upon DC. Community care: "It's all about you", Tamera (dtr) is employed and is caregiver. Patient requires assist with cooking, cleaning, meals, MD appointments. Patient denies the need for Rehab, SNF. Patient's private care will resume upon DC and her daughter will drive her home. Patient voices no needs at this time, other than those above. DCPIA - Discharge Planning Initial Assessment Updated by [id number]: Rebecca Saab on 02/27/20 5:57 pm * Is the patient Alert and Oriented? Yes * How many steps to enter\\exit or inside your home? 15-20 w/ra * PCP Siria Michael * [facility] * Preadmission Environment Home with Family * ADLs Partial Dependent * Partial ADLs (Assistance needed) Medication Management * Equipment Glucometer Hospital Bed Nebulizer Oxygen Shower Chair Tub Bench * Other Equipment Glucometer, Portable O2 * List name and contact numbers for known caregivers / representatives who currently or will assist patient after discharge: Tamera Ulloa (dtr) [phone] * Verbal permission to speak to the caregivers and representatives has been obtained from the patient. Yes * Community resources currently utilized Home Health Private Duty Care * Please name any agencies selected above. [facility] "[facility]" * Additional services required to return to the preadmission environment? No * Can the patient safely return to the preadmission environment? Yes * Has this patient been hospitalized within the prior 30 days at any hospital? No External Providers External Provider: [facility] Next Contact Date: Service Request Date: Service Type: Resolution: Reviewer: Comments: Coverage Notice Reviewer: [email or web address] Florencia Winston Notice Issued Date-Time: 02/29/2020 11:29 Notice Type: IM Discharge Notice Notice Delivered To: Patient Relationship to Patient: Self Belt Loop Maker Name: Delivery Method: HAND - Hand Delivered Whitney Days: Prior Verbal Notification: Recipient Understood Notice: Yes Recipient Signature: Yes Med Rec Note Co-signed by Attending: Coverage Notice Comment: IMM explained, signed, given, copy placed in MR Last DP export: 02/28/20 11:48 Patient Name: JOHN ULLOA Page 78913 at 1137 All edits/amendments must be made on the electronic document DICTATION DATE: 02/29/201135 MANAGER PSYCHOLOGY: SIMON 02/29/20 113 RPT#: [id number] DC DATE: STATUS: ADM IN [facility] [address] [place] [address] END OF REPORT
--- NOTE | 2020-02-29 11:44 | MORECARE ---
CASE MANAGEMENT DISCHARGE SUMMARY PATIENT: JOHN ULLOA UNIT: [id number] ADM DATE: 02/23/20 AGE: 74 : 46 SEX: F ROOM/BED: D.2104 AUTHOR: MERRILL,DOC PHYSICIAN: REFERRING PHYSICIAN: AUBRIE RODRÍGUEZ MD DATE OF SERVICE: 02/29/20 Discharge Plan Patient Name: JOHN ULLOA Facility: [facility]:[place] : 1945 Planned Disposition: Anticipated Discharge Date: Discharge Date: Expected LOS: Initial Reviewer: [email or web address] Initial Review Date: 02/23/2020 Generated: 02/29/20 12:43 pm Comments DCP- Discharge Planning Updated by [email or web address]: Jess Winston on 02/29/20 10:[address] Patient Name: JOHN ULLOA Encounter No: [id number] : 1945 Primary Insurance: [facility] MEDICARE SOLUTIONS Anticipated DC Date: Planned Disposition: External Planned Provider: : DCP follow-up note: Patient and family in agreement with discharge plan. No changes to plan. I called [facility] and sent a new referral and clinical per their request. Case management will follow and assist as needed. eJss Winston DCP- Discharge Planning Updated by [id number]: Rebecca Saab on 02/27/20 4:[address] CM met with patient for DC planning. Patient is in agreement to same. Patient lives wth her daughter, Tamera, in her home and there are 15-20 steps, w/rails to enter the house. Patient states she is managing them well. PCP: Siria Fuentes APN, Dr. Michael. [facility]acy[facility]. Emergency contact: Tamera Ulloa (dtr) [phone]. DME: Home O2, portable O2, nebulizer, Rollator (doesn't use), hospital bed, shower bench, glucometer checks BS QD and records it. HHS: Resume [facility] ([phone]) upon DC. Community care: "It's all about you", Tamera (dtr) is employed and is caregiver. Patient requires assist with cooking, cleaning, meals, MD appointments. Patient denies the need for Rehab, SNF. Patient's private care will resume upon DC and her daughter will drive her home. Patient voices no needs at this time, other than those above. DCPIA - Discharge Planning Initial Assessment Updated by [id number]: Rebeccafeliberto Saab on 02/27/20 5:57 pm * Is the patient Alert and Oriented? Yes * How many steps to enter\\exit or inside your home? 15-20 w/ra * PCP Siria Michael * [facility] * Preadmission Environment Home with Family * ADLs Partial Dependent * Partial ADLs (Assistance needed) Medication Management * Equipment Glucometer Hospital Bed Nebulizer Oxygen Shower Chair Tub Bench * Other Equipment Glucometer, Portable O2 * List name and contact numbers for known caregivers / representatives who currently or will assist patient after discharge: Tamera Ulloa (dtr) [phone] * Verbal permission to speak to the caregivers and representatives has been obtained from the patient. Yes * Community resources currently utilized Home Health Private Duty Care * Please name any agencies selected above. [facility] "[facility] All [facility] You" * Additional services required to return to the preadmission environment? No * Can the patient safely return to the preadmission environment? Yes * Has this patient been hospitalized within the prior 30 days at any hospital? No Coverage Notice Reviewer: [id number] Florencia Winston Notice Issued Date-Time: 02/29/2020 11:29 Notice Type: IM Discharge Notice Notice Delivered To: Patient Relationship to Patient: Self Food Scientist Name: Delivery Method: HAND - Hand Delivered Whitney Days: Prior Verbal Notification: Recipient Understood Notice: Yes Recipient Signature: Yes Med Rec Note Co-signed by Attending: Coverage Notice Comment: IMM explained, signed, given, copy placed in MR Last DP export: 02/29/20 10:37 Patient Name: JOHN ULLOA Page 66839 at 1144 All edits/amendments must be made on the electronic document DICTATION DATE: 02/29/20 1144 MEDICINE TECH: SIMON 02/29/20 1144 RPT#: [id number] DC DATE: STATUS: ADM IN [facility] [address] [place] [address] END OF REPORT
--- NOTE | 2020-02-29 12:41 | NUR ---
ALL DISCHARGE INSTRUCTIONS COVERED WITH PT AND PT FAMILY MEMBER. PT AND PT FAMILY MEMBER DENY FURTHER QUESTIONS/CONCERNS/NEEDS AT THIS TIME. ALL DISCHARGE PAPERS SIGNED BY PT. PIV TO LEFT FA REMOVED WITH CATHETER TIP INTACT. DRESSING APPLIED. PT TO NOTIFY NURSE WHEN READY FOR TRANSPORT FROM ROOM. ALL SIGNED DC PAPERS PLACED IN PT CHART.
--- NOTE | 2020-02-29 13:15 | NUR ---
PT TRANSPORTED FROM FLOOR VIA WHEELCHAIR ESCORTED BY THIS NURSE. PT DAUGHTER WILL TRANSPORT HOME IN POV. PT WITH HOME O2 ON AND WORKING. PT DENIES FURTHER QUESTIONS/CONCERNS/NEEDS AT THIS TIME AND THANKS THIS NURSE FOR CARE GIVEN DURING THIS SHIFT.
--- NOTE | 2020-03-01 10:12 | MORECARE ---
CASE MANAGEMENT DISCHARGE SUMMARY PATIENT: JOHN ULLOA UNIT: [id number] ADM DATE: 02/23/20 AGE: 74 : 47 SEX: F ROOM/BED: D.2106 AUTHOR: MERRILL,DOC PHYSICIAN: REFERRING PHYSICIAN: AUBRIE RODRÍGUEZ MD DATE OF SERVICE: 03/01/20 Discharge Plan Patient Name: JOHN ULLOA Facility: [facility]:[place] : 1945 Planned Disposition: Home Health Service Anticipated Discharge Date: 02/29/20 Discharge Date: 02/29/2020 Expected LOS: 6 Initial Reviewer: [id number] Initial Review Date: 02/23/2020 Generated: 03/01/20 11:11 am Comments DCP- Discharge Planning Updated by [id number]: Jess Winston on 02/29/20 10:[address] Patient Name: JOHN ULLOA Encounter No: [id number] : 1945 Primary Insurance: [facility] MEDICARE SOLUTIONS Anticipated DC Date: Planned Disposition: External Planned Provider: : DCP follow-up note: Patient and family in agreement with discharge plan. No changes to plan. I called [facility] and sent a new referral and clinical per their request. Case management will follow and assist as needed. Jess Winston DCP- Discharge Planning Updated by [id number]: Rebecca Saab on 02/27/20 4:[address] CM met with patient for DC planning. Patient is in agreement to same. Patient lives wth her daughter, Tamera, in her home and there are 15-20 steps, w/rails to enter the house. Patient states she is managing them well. PCP: Dr. Fernanda Knight APN. Pharmacy[facility]. Emergency contact: Tamera Ulloa (dtr) [phone]. DME: Home O2, portable O2, nebulizer, Rollator (doesn't use), hospital bed, shower bench, glucometer checks BS QD and records it. HHS: Resume [facility] ([phone]) upon DC. Community care: "It's all about you", Tamera (dtr) is employed and is caregiver. Patient requires assist with cooking, cleaning, meals, MD appointments. Patient denies the need for Rehab, SNF. Patient's private care will resume upon DC and her daughter will drive her home. Patient voices no needs at this time, other than those above. DCPIA - Discharge Planning Initial Assessment Updated by [id number]: Rebecca Saab on 02/27/20 5:57 pm * Is the patient Alert and Oriented? Yes * How many steps to enter\\exit or inside your home? 15-20 w/ra * PCP Siria Michael * [facility] * Preadmission Environment Home with Family * ADLs Partial Dependent * Partial ADLs (Assistance needed) Medication Management * Equipment Glucometer Hospital Bed Nebulizer Oxygen Shower Chair Tub Bench * Other Equipment Glucometer, Portable O2 * List name and contact numbers for known caregivers / representatives who currently or will assist patient after discharge: Tamera Ulloa (dtr) [phone] * Verbal permission to speak to the caregivers and representatives has been obtained from the patient. Yes * Community resources currently utilized Home Health Private Duty Care * Please name any agencies selected above. [facility] "[facility]'s All [facility] You" * Additional services required to return to the preadmission environment? No * Can the patient safely return to the preadmission environment? Yes * Has this patient been hospitalized within the prior 30 days at any hospital? No Coverage Notice Reviewer: [id number] Florencia Winston Notice Issued Date-Time: 02/29/2020 11:29 Notice Type: IM Discharge Notice Notice Delivered To: Patient Relationship to Patient: Self Quality Assurance Monitor Chassis Name: Delivery Method: HAND - Hand Delivered Whitney Days: Prior Verbal Notification: Recipient Understood Notice: Yes Recipient Signature: Yes Med Rec Note Co-signed by Attending: Coverage Notice Comment: IMM explained, signed, given, copy placed in MR Last DP export: 02/29/20 10:44 Patient Name: JOHN ULLOA Page 83252 at 1012 All edits/amendments must be made on the electronic document DICTATION DATE: 03/01/20 1011 [employer] MK1 OPERATOR: SIMON 03/01/20 1011 RPT#: [id number] DC DATE:10/15/20 STATUS: DIS IN [facility] [address] [place] [address] END OF REPORT
== END 2020-02-29 13:28 | disposition home health service (06) | DRG 812 ==
LOC: D.ER 22:09 → D.EDHOLD 02-23 01:07 → OBSVTIME 02-23 01:07 → D.EDHOLD 02-23 01:07 → D.M2 02-23 15:39 → D.EDHOLD 02-23 15:39 → D.M2 02-23 19:22
PROVIDERS: Emergency Medicine; Internal Medicine Cardiovascular Disease; Internal Medicine Interventional Cardiology; Internal Medicine Pulmonary Disease; ADMIT Family Medicine; ATTEND Family Medicine
PROC: 4A023N6 Measurement of Cardiac Sampling and Pressure, Right Heart, Percutaneous Approach (ICD-10-PCS; principal; 2020-02-27 15:30)
DX: D50.9 Iron deficiency anemia, unspecified (principal); N17.9 Acute kidney failure, unspecified; J44.0 Chronic obstructive pulmonary disease with (acute) lower respiratory infection; J44.1 Chronic obstructive pulmonary disease with (acute) exacerbation; J98.11 Atelectasis; I10 Essential (primary) hypertension; I25.10 Atherosclerotic heart disease of native coronary artery without angina pectoris; I27.20 Pulmonary hypertension, unspecified; I07.1 Rheumatic tricuspid insufficiency; E11.21 Type 2 diabetes mellitus with diabetic nephropathy; Z99.81 Dependence on supplemental oxygen; Z87.891 Personal history of nicotine dependence